=== PATIENT | male | born 1945 | race Two or more races ===

== ENCOUNTER → 2021-05-15 12:56 | Outpatient (REF) | payer MEDICARE, MEDICAID, SELFPAY ==
--- NOTE | ~2021-05-15 | XR_ITS ---
EXAMINATION: XR CHEST CLINICAL INFORMATION: Wheezing. COMPARISON: None. TECHNIQUE: 2 views of the chest were obtained. FINDINGS: Linear atelectasis within the right and left lung base. Eventration of the right hemidiaphragm. No pleural effusion or pneumothorax. Unremarkable cardiomediastinal silhouette. No acute osseous abnormality. XR/XR chest 2V IMPRESSION: Bibasilar linear atelectasis.
--- NOTE | 2021-05-15 13:11 | ECG_ITS ---
Hook-up date: 2021-05-15 13:56:00 Duration: 47:59:00 Test Indications: cardiac arrhythmia, unspecified Medications: [id number] QRS complexes 176 Ventricular ectopics which represent <1 % of total QRS comp. 4006 Supraventricular ectopics which represent 2 % of total QRS comp. * Paced QRS complexs which represent % of total QRS comp. VENTRICULAR ECTOPY 176 Isolated 0 Bigeminal Cycles 0 Couplets 0 Runs 0 Beats in Runs * Beats LONGEST at * BPM at :: -- * Beats FASTEST at * BPM at :: -- SUPRAVENTRICULAR ECTOPY 163 Isolated 6 Couplets 11 Runs 3831 Beats in Runs 1610 Beats LONGEST at 66 BPM at 04:28:29 2021-05-17 672 Beats FASTEST at 68 BPM at 06:21:32 2021-05-17 HEART RATES 47 MIN at 23:02:50 2021-05-15 69 AVG 111 MAX at 13:21:26 2021-05-16 LONGEST RR 1.6240 secs at 12:15:20 2021-05-17 S-T LEVELS Channel 1 - 128 mm at 13:56:00 2021-05-15 - 128 mm at 13:56:00 2021-05-15 Channel 2 - 128 mm at 13:56:00 2021-05-15 - 128 mm at 13:56:00 2021-05-15 Channel 3 - 128 mm at 03:31:51 -- - 128 mm at 03:31:51 Referred By: Tresa Tran Overread By:
== END ==
LOC: HO.CARD 12:56
PROVIDERS: Visit Provider Family Medicine
DX: R06.02 Shortness of breath (principal); I49.9 Cardiac arrhythmia, unspecified; F17.200 Nicotine dependence, unspecified, uncomplicated
CPT/HCPCS: 71046; 93225; 93226

== ENCOUNTER 2021-06-05 14:34 | Outpatient (REF) | payer MEDICARE, MEDICAID, SELFPAY ==
--- NOTE | ~2021-06-05 | CT_ITS ---
EXAMINATION: CT CHEST SCREENING CLINICAL INFORMATION: Current smoker. [id number] smoking history. COMPARISON: Previous chest x-ray 05/15/2021 TECHNIQUE: Multidetector volumetric CT imaging of the chest is performed without contrast using low-dose technique. Additional 2-D coronal and sagittal reformatted images and axial 3-D maximum intensity projection (MIP) images are generated on the CT workstation. This CT examination was performed using dose optimization techniques as appropriate, variously including the following: *Automated exposure control *Adjustment of mA and/or kV according to patient size (this includes techniques or standardized protocols for targeted exams where dose is matched to indication/reason for exam; i.e. extremities or head) *Use of iterative reconstruction technique DLP: 67 mGy-cm FINDINGS: LUNGS: There is evidence of mild paraseptal emphysema. There is a 1.3 cm nodular density in the medial segment of the right middle lobe. This has an adjacent thick linear component with air bronchograms. It is uncertain whether this represents a true pulmonary nodule versus area of nodular-appearing atelectasis. This abuts an area of prominent epicardial fat. There is subsegmental atelectasis seen in the left lung base in the inferior segment of the lingula and the left lower lobe. The lungs are otherwise clear. No endobronchial or endotracheal lesion is seen. MEDIASTINUM: The heart does not appear enlarged. There is mild coronary artery calcification. The thoracic aorta is normal in caliber. There is no pericardial effusion. There are no enlarged hilar or mediastinal lymph nodes. The visualized thyroid gland appears small. PLEURA: There is no pleural effusion. No pleural mass or thickening. AXILLA: No lymphadenopathy. UPPER ABDOMEN: Unremarkable. OSSEOUS STRUCTURES: There are degenerative changes of the spine. CT/CT lung screening IMPRESSION: Mild emphysema. 1.3 cm nodular density in the medial segment of the right middle lobe. It is uncertain whether this represents nodular-appearing atelectasis or true pulmonary nodule. Mild coronary artery calcification. ASSESSMENT: Lung-RADS category 4A: Suspicious. RECOMMENDATION: Low-dose chest CT followup in 3 months or PET/CT scan recommended. Comparison with old outside exams if available would be helpful as well.
== END 2021-06-05 14:35 | disposition home or self-care (01) ==
LOC: HO.CT 14:34
PROVIDERS: PCP Family Medicine; Visit Provider Physician Assistant Medical
DX: Z12.2 Encounter for screening for malignant neoplasm of respiratory organs (principal); F17.210 Nicotine dependence, cigarettes, uncomplicated
CPT/HCPCS: 71271; G0296

== ENCOUNTER 2021-06-23 13:09 | Outpatient (REF) | payer MEDICARE, MEDICAID, SELFPAY | END 2021-06-23 13:10 | disposition home or self-care (01) | LOC: HO.PET 13:09 | PROVIDERS: PCP Family Medicine; Visit Provider Surgery | DX: Z13.89 Encounter for screening for other disorder (principal) ==

== ENCOUNTER 2021-06-25 11:00 | Outpatient (REF) | payer MEDICARE, MEDICAID, SELFPAY ==
--- NOTE | 2021-06-25 17:34 | PFT_ITS ---
INDICATION: Preop. SPIROMETRY: The FEV1 to FVC 66% with an FEV1 of 2.26 L, which is 78% predicted and FVC 3.42 L, which is 90% predicted. There was a significant response to bronchodilators noted. Maximum voluntary ventilation 82% predicted. LUNG VOLUMES: Total lung capacity 98% predicted with residual volume 137% predicted. DIFFUSION CAPACITY: DLCO 60% predicted. COMPARISONS: None. INTERPRETATION: There is an obstructive ventilatory defect consistent moderate COPD. There was a significant response to bronchodilators noted. Normal maximum voluntary ventilation. Lung volumes are normal except for increase in the residual volume consistent with air trapping due to the COPD. There is also moderate diffusion impairment. Clinical correlation warranted. Pino Hammer MD MR/MODL / [id number]
== END 2021-06-25 11:01 | disposition home or self-care (01) ==
LOC: HO.RESP 11:00
PROVIDERS: PCP Family Medicine; Visit Provider Physician Assistant Medical
DX: Z01.818 Encounter for other preprocedural examination (principal); Z87.891 Personal history of nicotine dependence
CPT/HCPCS: 94060; 94727; 94729

== ENCOUNTER 2021-06-28 13:43 | Emergency (ER) | payer MEDICARE, MEDICAID, SELFPAY ==
--- NOTE | ~2021-06-28 | XR_ITS ---
EXAMINATION: XR CHEST CLINICAL INFORMATION: Shortness of breath COMPARISON: Previous chest x-ray and chest CT from May 2021 TECHNIQUE: Frontal view of the chest was obtained. FINDINGS: The cardiac and mediastinal contours are stable. There is slight tenting of the right hemidiaphragm. The lungs are otherwise clear. There is no pleural effusion or pneumothorax. There are degenerative changes of the spine and shoulder joints. XR/XR chest 1V IMPRESSION: No evidence for acute disease in the chest.
[2021-06-28 13:45] VITALS: BP 192/90; PULSE 100; RESP 24; TEMP 36.8; O2SAT 96; BMI 25.1
--- NOTE | 2021-06-28 13:50 | ECG_ITS ---
Test Reason : SHORTNESS OF BREATH Blood Pressure : / mmHG Vent. Rate : 093 BPM Atrial Rate : 093 BPM P-R Int : 134 ms QRS Dur : 076 ms QT Int : 348 ms P-R-T Axes : 064 036 063 degrees QTc Int : 432 ms Normal sinus rhythm Normal ECG When compared with ECG of 30-MAR-2014 10:03, Vent. rate has increased BY 33 BPM Nonspecific T wave abnormality is no longer Present Lateral leads Referred By: Generic ED Physician Electronically Signed By:SHANIA MITTAL MD
--- NOTE | 2021-06-28 14:15 | ED_ITS ---
HPI - SOB/Dyspnea General Chief Complaint: Dyspnea Stated Complaint: diff breathing Time Seen by Provider: 06/28/21 13:54 Source: patient Mode of arrival: ambulatory Limitations: no limitations History of Present Illness HPI Narrative: 76-year-old male with a history of emphysema, former smoker here with complaints of shortness of breath the last 3 days with dry cough. No chest pain, fever, chills. Related Data Previous Rx's Medication Instructions Recorded azithromycin 250 mg tablet See Rx Instructions .ROUTE 06/28/21 .COMPLEX #6 tab prednisone 20 mg tablet 40 mg PO DAILY #10 tab 06/28/21 Allergies Allergy/AdvReac Type Severity Reaction Status Date / Time No Known Allergies Allergy Unverified 05/01/20 15:10 Review of Systems Review of Systems: Yes all other systems are reviewed and are negative Constitutional: Constitutional: Reports no additional constitutional com plaints, Denies body ache(s), Denies chills, Denies fever(s), Denies headache(s) and Denies weakness Eyes: Eyes: Reports no additional eye complaints and Denies change in vision ENT: Reports system reviewed and no additional complaints, except as documented, Denies dizziness, Denies headache(s), Denies nasal congestion, Denies nasal discharge and Denies neck pain Cardiovascular: Cardiovascular: Reports no additional cardiovascular complaints, Denies chest pain, Denies leg edema and Reports dyspnea Respiratory: Respiratory: Reports no additional respiratory complaints, Reports cough and Reports dyspnea Gastrointestinal: Gastrointestinal: Reports no additional gastrointestinal complaints, Denies abdominal pain, Denies diarrhea, Denies nausea and Denies vomiting Genitourinary: Genitourinary: Denies urinary incontinence Musculoskeletal: Musculoskeletal: Reports no additional musculoskeletal complaints, Denies back pain, Denies arthralgias, Denies joint swelling, Denies neck pain, Denies numbness and Denies tingling Integumentary/Breasts: Skin/Breast: Reports system reviewed and no additional complaints, except as docu and Denies rash Neurologic: Reports system reviewed and no additional complaints, except as documented, Denies Abnormal speech present, Denies dizziness, Denies headache(s), Denies numbness, Denies tingling and Denies weakness PMFSH Past Medical History Attestation statement: The following information was validated with the patient. Source: old records reviewed and nursing notes reviewed Medical History Chronic hepatitis C virus genotype 1a infection (~1999) Hypertension Personal history of nicotine dependence Tubular adenoma of colon (~2012) Surgical History History of cataract surgery (~2006) History of colonoscopy History of hernia repair History of liver biopsy (~2000) History of lumbar surgery (~1994) History of transurethral resection of prostate (~2009) Social History Social History Patient Tobacco Use Status: Former Tobacco user Quit Date: 2014 Tobacco use type: Cigarette Years Smoked: 55 - onset 14, 1/2ppd x 56yrs, 25+PYH, quit 2014 Advance Directives: No Advance Directives Information Provided: No Physical Exam Vital Signs: Vital Signs: Last Vital Signs Temp 98.2 F 06/28/21 13:45 Pulse 83 06/28/21 15:52 Resp 24 H 06/28/21 13:45 BP 192/90 H 06/28/21 13:45 Pulse Ox 96 06/28/21 13:45 Body Mass Index 25.1 Const: General: cooperative, healthy appearing, comfortable and no acute distress Orientation/consciousness: patient oriented x3 Limitations: no limitations HENMT: Head: Yes normal to inspection Ears: hearing grossly normal bilaterally General nose exam: Normal external nose present Face and sinus: Yes normal facial exam Mouth: Normal oral and palatal mucosa present Throat: Yes posterior oropharynx normal Eyes: General: appearance normal, both eyes and all related structures Pupils: Equal, round and reactive pupils present Neck: Neck: Yes normal visual inspection Chest: Chest palpation & inspection: normal inspection of the chest Resp: Other: Inspiratory and expiratory wheezing throughout Mild tachypnea, sitting upright, speaking short phrases Cardio: Rate: regular rate Rhythm: regular rhythm Peripheral pulses: Peripheral pulses 2+ throughout GI: Inspection: Yes normal to inspection Palpation (GI): Soft to palpation and nontender Auscultation: normal bowel sounds Back/Spine/Pelvis: Thoracic/Lumbar Spine: thoracic and lumbar spine normal to inspection Skin: General skin exam: no rashes or lesions noted Neuro: General: patient oriented x3, no focal motor deficits and normal sensation to monofilament Cranial nerves: Yes Equal, round and reactive pupils present Cognition (Neuro): normal cognition Speech: No Abnormal speech present Gait exam (Neuro): Normal gait present Motor exam (neuro): 5/5 motor strength present throughout Extrem: General: Yes normal to inspection, Yes no pedal edema and Yes no calf tenderness Course Course Course Narrative: 76-year-old male here with history of emphysema with shortness of breath and cough for few days. On arrival the patient is tachypneic with wheezing. He has stable saturations. Likely COPD exacerbation will plan for IV with IV Solu-Medrol, magnesium, duoneb. Will check covid screen, CXR, EKG. 1530-labs, chest x-ray, EKG and COVID screen are all unremarkable. I re- examined the patient. He has continued expiratory wheezing throughout. Overall he is feeling improved but still complaining of some mild tachypnea. Will repeat albuterol. Will need ambulatory trial to determine need for admission. 1645-patient feeling improved. Ambulated with a pulse oximeter greater than 9 6%. Lungs are improved. Plan for discharge home. Reviewed worrisome signs and symptoms and when to return to the emergency department. Comfortable discharge home. MDM - SOB/Dyspnea Differential Diagnosis Differential diagnosis: Likely acute exacerbation of chronic obstructive airways disease Medical Records Attestation: I reviewed the patient's medical records. Lab Data Attestation: I reviewed the patient's lab results. Result diagrams: 06/28/21 14:27 06/28/21 14:27 Labs: Lab Results 06/28/21 06/28/21 06/28/21 Range/Units 14:27 14:27 14:27 WBC 7.6 (4.8-10.8) X10*3/uL RBC 4.96 (4.60-5.80) X10*6/uL Hgb 15.6 (14.0-18.0) g/dl Hct 45.7 (42.0-52.0) % MCV 92.1 (80.0-98.0) fL MCH 31.5 (27.0-33.0) pg MCHC 34.1 (31.0-36.0) g/dl RDW 13.0 (11.0-16.0) % Plt Count 186 (160-400) X10*3/uL MPV 10.0 (9.4-12.4) fL Immature Gran % (Auto) 0.3 (0.0-0.4) % Neut % (Auto) 79.6 H (45-73) % Lymph % (Auto) 9.9 L (20-40) % Whitfield % (Auto) 8.4 (2-11) % Eos % (Auto) 1.3 (0-4) % Baso % (Auto) 0.5 (0-2) % Lymph # (Auto) 0.8 L (1.2-4.9) X10*3/uL Whitfield # (Auto) 0.6 (0.1-1.2) X10*3/uL Eos # (Auto) 0.1 (0.0-0.4) X10*3/uL Baso # (Auto) 0.0 (0.0-0.2) X10*3/uL Abs Immat Gran (auto) 0.02 (0.00-0.03) X10*3/uL Absolute Neuts (auto) 6.1 (2.0-8.3) x10*3/uL Absolute Nucleated RBC 0.000 (0.0-0.012) X10*3/uL Nucleated RBC % (auto) 0.0 (0.0-0.2) /100WBC Sodium 142 (135-145) mmol/L Potassium 3.6 (3.3-5.1) mmol/L Chloride 106 (96-108) mmol/L Carbon Dioxide 23 (22-29) mmol/L Anion Gap 17 (12-20) BUN 11 (9-16) mg/dL Creatinine 0.83 (0.5-1.4) mg/dL Estim Creat Clear Calc 79.3 Estimated GFR > 60 Random Glucose 150 H (60-115) mg/dL Calcium 9.0 (8.4-10.2) mg/dL Total Bilirubin (0.0-1.0) mg/dL Direct Bilirubin (0.0-0.5) mg/dL AST (5-37) U/L ALT (0-40) U/L Alkaline Phosphatase (39-117) U/L Troponin I High Sens 7.2 (<3.5-35.0) ng/L Total Protein (6.5-8.0) g/dL Albumin (3.5-5.0) g/dL COVID-19 ([facility]) (Negative) COVID-19 Clin Com 06/28/21 06/28/21 Range/Units 14:27 14:27 WBC (4.8-10.8) X10*3/uL RBC (4.60-5.80) X10*6/uL Hgb (14.0-18.0) g/dl Hct (42.0-52.0) % MCV (80.0-98.0) fL MCH (27.0-33.0) pg MCHC (31.0-36.0) g/dl RDW (11.0-16.0) % Plt Count (160-400) X10*3/uL MPV (9.4-12.4) fL Immature Gran % (Auto) (0.0-0.4) % Neut % (Auto) (45-73) % Lymph % (Auto) (20-40) % Whitfield % (Auto) (2-11) % Eos % (Auto) (0-4) % Baso % (Auto) (0-2) % Lymph # (Auto) (1.2-4.9) X10*3/uL Whitfield # (Auto) (0.1-1.2) X10*3/uL Eos # (Auto) (0.0-0.4) X10*3/uL Baso # (Auto) (0.0-0.2) X10*3/uL Abs Immat Gran (auto) (0.00-0.03) X10*3/uL Absolute Neuts (auto) (2.0-8.3) x10*3/uL Absolute Nucleated RBC (0.0-0.012) X10*3/uL Nucleated RBC % (auto) (0.0-0.2) /100WBC Sodium (135-145) mmol/L Potassium (3.3-5.1) mmol/L Chloride (96-108) mmol/L Carbon Dioxide (22-29) mmol/L Anion Gap (12-20) BUN (9-16) mg/dL Creatinine (0.5-1.4) mg/dL Estim Creat Clear Calc Estimated GFR Random Glucose (60-115) mg/dL Calcium (8.4-10.2) mg/dL Total Bilirubin 0.5 (0.0-1.0) mg/dL Direct Bilirubin 0.2 (0.0-0.5) mg/dL AST 17 (5-37) U/L ALT 18 (0-40) U/L Alkaline Phosphatase 122 H (39-117) U/L Troponin I High Sens (<3.5-35.0) ng/L Total Protein 7.8 (6.5-8.0) g/dL Albumin 4.5 (3.5-5.0) g/dL COVID-19 ([facility]) Negative (Negative) COVID-19 Clin Com See Note Imaging Data Chest x-ray: Attestation: I personally reviewed and interpreted this imaging study as follows: Radiologist's impression: [place] [id number] XRay Report Signed Patient: Rd Mead MR#: [id number] : 1945 Acct:[id number] Age/Sex: 76 / M ADM Date: 06/28/21 Loc: .ED Attending Dr: Ordering Physician: Klaus Westfall MD Date of Service: 06/28/21 Procedure(s): XR chest 1V Accession Number(s): [id number] cc: Klaus Westfall MD~ EXAMINATION: XR CHEST CLINICAL INFORMATION: Shortness of breath COMPARISON: Previous chest x-ray and chest CT from May 2021 TECHNIQUE: Frontal view of the chest was obtained. FINDINGS: The cardiac and mediastinal contours are stable. There is slight tenting of the right hemidiaphragm. The lungs are otherwise clear. There is no pleural effusion or pneumothorax. There are degenerative changes of the spine and shoulder joints. XR/XR chest 1V IMPRESSION: No evidence for acute disease in the chest. ? ECG Data Attestation: I personally reviewed and interpreted this ECG as follows: ECG interpretation date: 06/28/21 ECG interpretation time: 14:19 Interpretation: Normal sinus rhythm with a rate of 93, normal IL, normal QRS, normal QT Discharge Plan Discharge Clinical Impression: Acute exacerbation of chronic obstructive airways disease Patient Disposition: Home, Self-Care Instructions: COPD (Chronic Obstructive Pulmonary Disease) (ED) Additional Instructions: Start your prednisone tomorrow Continue your albuterol Return for worsening shortness of breath Prescriptions: New prednisone 20 mg tablet 40 mg PO DAILY Qty: 10 RF: 0 azithromycin 250 mg tablet See Rx Instructions .ROUTE .COMPLEX Qty: 6 RF: 0 Referrals: Tresa Tran MD [Primary Care Provider] - 2 days Interventions: ED Discharge Assessment Last Done: 06/28/21 16:38 Discharge Date/Time: 06/28/21 16:38
[2021-06-28 14:27] VITALS: PULSE 88; O2SAT 96
[2021-06-28] MEDS: Albuterol/Iprat 2.5/0.5MG 3 ML AMPUL.NEB INHALE (14:27)
[2021-06-28] MEDS: methylPREDNISolone Sod Succ 125 MG/2 ML VIAL IVPUSH (14:31)
[2021-06-28 14:35] LABS: MANUAL DIFF FLAG NO
[2021-06-28 14:36] LABS: Basophils Percent Auto 0.5 % (0-2); Eosinophils Absolute Auto 0.1 X10*3/uL (0.0-0.4); Eosinophils Percent Auto 1.3 % (0-4); Hematocrit 45.7 % (42.0-52.0); Hemoglobin 15.6 g/dl (14.0-18.0); Imm Gran Abs Auto 0.02 X10*3/uL (0.00-0.03); Imm Gran Pct Auto 0.3 % (0.0-0.4); Lymphocytes Absolute Auto 0.8 X10*3/uL (1.2-4.9); Lymphocytes Percent Auto 9.9 % (20-40); Mean Corpuscular HGB Conc 34.1 g/dl (31.0-36.0); Mean Corpuscular Hemoglobin 31.5 pg (27.0-33.0); Mean Corpuscular Volume 92.1 fL (80.0-98.0); Monocytes Absolute Auto 0.6 X10*3/uL (0.1-1.2); Monocytes Percent Auto 8.4 % (2-11); Neutrophils Absolute Auto 6.1 x10*3/uL (2.0-8.3); Neutrophils Percent Auto 79.6 % (45-73); Platelet Count 186 X10*3/uL (160-400); Red Blood Count 4.96 X10*6/uL (4.60-5.80); White Blood Count 7.6 X10*3/uL (4.8-10.8)
[2021-06-28] MEDS: Magnesium Sulfate/H2O 2 GM/50 ML PIGGYBACK IV (14:42)
[2021-06-28 14:49] LABS: COVID-19 Test Negative (Negative)
[2021-06-28 14:50] LABS: Anion Gap 17 (12-20); Blood Urea Nitrogen 11 mg/dL (9-16); Carbon Dioxide 23 mmol/L (22-29); Chloride 106 mmol/L (96-108); Creatinine Clr Calc Pharmacy 79.3; Estimated Glomerular Filt Rate > 60; Glucose Random 150 mg/dL (60-115); Potassium 3.6 mmol/L (3.3-5.1); Sodium 142 mmol/L (135-145)
[2021-06-28 14:51] LABS: Alanine Aminotransferase 18 U/L (0-40); Albumin Level 4.5 g/dL (3.5-5.0); Alkaline Phosphatase 122 U/L (39-117); Aspartate Amino Transferase 17 U/L (5-37); Bilirubin Direct 0.2 mg/dL (0.0-0.5); Bilirubin Total 0.5 mg/dL (0.0-1.0); Total Protein 7.8 g/dL (6.5-8.0)
[2021-06-28 14:56] LABS: Troponin-I High Sensitivity 7.2 ng/L (<3.5-35.0)
[2021-06-28] MEDS: Albuterol Sulfate (0.083%) 2.5 MG/3 ML VIAL.NEB 5 MG INHALE (15:51)
[2021-06-28 15:52] VITALS: PULSE 83; O2SAT 97
== END 2021-06-28 16:38 | disposition home or self-care (01) ==
PROVIDERS: Nurse Practitioner Family; Emergency Provider Emergency Medicine; PCP Family Medicine
DX: J44.1 Chronic obstructive pulmonary disease with (acute) exacerbation (principal); I10 Essential (primary) hypertension; Z87.891 Personal history of nicotine dependence; Z20.822 Contact with and (suspected) exposure to COVID-19
CPT/HCPCS: 36415; 71045; 80048; 80076; 84484; 85025; 87635; 93005; 94640; 96365; 96366; 96375; 99283; 99284; J2930; J3475

== ENCOUNTER → 2021-07-03 09:02 | Outpatient (BNVA) | payer MEDICARE, MEDICAID, SELFPAY | PROVIDERS: PCP Family Medicine; Visit Provider Surgery | DX: R91.1 Solitary pulmonary nodule (principal); Z79.899 Other long term (current) drug therapy; Z87.891 Personal history of nicotine dependence | CPT/HCPCS: 99212 ==

== ENCOUNTER → 2021-07-28 10:06 | Outpatient (BNVA) | payer MEDICARE, MEDICAID, SELFPAY | PROVIDERS: PCP Family Medicine; Visit Provider Hospitalist | DX: R91.1 Solitary pulmonary nodule (principal); J41.1 Mucopurulent chronic bronchitis; F17.200 Nicotine dependence, unspecified, uncomplicated | CPT/HCPCS: 99202 ==

== ENCOUNTER 2021-09-24 14:19 | Outpatient (REF) | payer MEDICARE, MEDICAID, SELFPAY ==
--- NOTE | ~2021-09-24 | CT_ITS ---
EXAMINATION: CT CHEST SCREENING CLINICAL INFORMATION: Former smoker. Quit 7 years ago. 56 pack year history. COMPARISON: Previous chest CT May 2021 TECHNIQUE: Multidetector volumetric CT imaging of the chest is performed without contrast using low dose technique. Additional 2D coronal and sagittal reformatted images and axial 3D maximum intensity projection (MIP) images are generated on the CT workstation. This CT examination was performed using dose optimization techniques as appropriate, variously including the following: *Automated exposure control *Adjustment of mA and/or kV according to patient size (this includes techniques or standardized protocols for targeted exams where dose is matched to indication/reason for exam; i.e. extremities or head) *Use of iterative reconstruction technique DLP: 52 mGy-cm FINDINGS: LUNGS: There is evidence of mild emphysema. There is a stable 3 mm left upper lobe nodule axial image 269 series 6. No new pulmonary nodule is seen. There is chronic scarring or subsegmental atelectasis in the right middle lobe that is stable. There is minimal linear scarring or subsegmental atelectasis at the left lung base. MEDIASTINUM: There is mild coronary artery calcification. The mediastinum is otherwise normal. PLEURA: There is no pleural effusion. No pleural mass or thickening. AXILLA: No lymphadenopathy. UPPER ABDOMEN: Unremarkable OSSEOUS STRUCTURES:Degenerative changes of the spine and left shoulder. CT/CT lung screen follow up IMPRESSION: Mild emphysema. Stable small left upper lobe nodule. Stable atelectasis at the right middle lobe. Mild coronary artery calcification. ASSESSMENT: Lung-RADS category 2: Benign RECOMMENDATION: Annual low-dose chest CT follow-up recommended.
== END 2021-09-24 14:20 | disposition home or self-care (01) ==
LOC: HO.CT 14:19
PROVIDERS: Visit Provider Physician Assistant Medical
DX: Z12.2 Encounter for screening for malignant neoplasm of respiratory organs (principal); Z87.891 Personal history of nicotine dependence
CPT/HCPCS: 71250

== ENCOUNTER → 2021-10-02 10:48 | Outpatient (BNVA) | payer MEDICARE, MEDICAID, SELFPAY | PROVIDERS: PCP Family Medicine; Visit Provider Surgery | DX: R91.1 Solitary pulmonary nodule (principal); Z79.899 Other long term (current) drug therapy; Z87.891 Personal history of nicotine dependence | CPT/HCPCS: 99212 ==

== ENCOUNTER → 2021-10-08 13:15 | Outpatient (BNVA) | payer MEDICARE, MEDICAID, SELFPAY | PROVIDERS: PCP Family Medicine; Visit Provider Hospitalist | DX: J41.1 Mucopurulent chronic bronchitis (principal); R91.1 Solitary pulmonary nodule; Z79.899 Other long term (current) drug therapy | CPT/HCPCS: 99212 ==

== ENCOUNTER 2022-02-24 16:07 | Outpatient (REF) | payer MEDICARE, MEDICAID, SELFPAY ==
--- NOTE | ~2022-02-24 | XR_ITS ---
EXAMINATION: XR CHEST CLINICAL INFORMATION: Dorsalgia. COMPARISON: Prior chest radiographs, most recently 06/28/2021; CT chest dated 09/24/2021. TECHNIQUE: Frontal and lateral views of the chest were obtained. FINDINGS: The heart, great vessels, pulmonary vasculature and mediastinum are stable. There is atherosclerotic calcifications of the aortic knob. There is a persistent undulating appearance of the right hemidiaphragm. There is mild chronic linear scar/subsegmental atelectasis at the lateral left base. No new superimposed infiltrate, effusion or pneumothorax is seen. There is no acute osseous abnormality. XR/XR chest 2V IMPRESSION: There is stable mild left base linear scar/subsegmental atelectasis. No new infiltrate or congestive heart failure is seen.
--- NOTE | ~2022-02-24 | XR_ITS ---
EXAMINATION: XR THORACIC SPINE CLINICAL INFORMATION: Dorsalgia. COMPARISON: Radiographs dated 01/07/2010. TECHNIQUE: Frontal and lateral views of the thoracic spine were obtained, together with a swimmer's view. FINDINGS: There is bony demineralization. Vertebral body heights and alignment are normal. The thoracic disc spaces are well-maintained. No acute fracture or spondylolisthesis is seen. There is multi-level mild thoracic spondylosis. The posterior elements are intact. The paravertebral soft tissues are unremarkable. XR/XR thoracic spine 3V IMPRESSION: 1. No acute fracture or spondylolisthesis is seen. 2. The thoracic disc spaces are well-maintained. 3. There is multi-level mild thoracic spondylosis.
== END 2022-02-24 16:08 | disposition home or self-care (01) ==
LOC: HO.XRAY 16:07
PROVIDERS: PCP Family Medicine; Visit Provider Family Medicine
DX: M54.9 Dorsalgia, unspecified (principal)
CPT/HCPCS: 71046; 72072

== ENCOUNTER 2022-09-15 12:57 | Outpatient (REF) | payer MEDICARE, SELFPAY ==
--- NOTE | ~2022-09-15 | CT_ITS ---
EXAMINATION: CT CHEST SCREENING CLINICAL INFORMATION: Personal history of nicotine dependence. COMPARISON: 09/24/2021 TECHNIQUE: Multidetector volumetric CT imaging of the chest is performed without contrast using low dose technique. Additional 2D coronal and sagittal reformatted images and axial 3D maximum intensity projection (MIP) images are generated on the CT workstation. This CT examination was performed using dose optimization techniques as appropriate, variously including the following: *Automated exposure control *Adjustment of mA and/or kV according to patient size (this includes techniques or standardized protocols for targeted exams where dose is matched to indication/reason for exam; i.e. extremities or head) *Use of iterative reconstruction technique DLP: 48 mGy-cm FINDINGS: LUNGS: The central airways are patent. Mild centrilobular emphysema. No dense consolidation. No pneumothorax. Unchanged 0.3 cm left upper lobe pulmonary nodule on series 5 image 256. No new pulmonary nodules. MEDIASTINUM: Normal heart size. Mild coronary artery calcifications are present. No pericardial effusion. No mediastinal lymphadenopathy. CORONARY ARTERY CALCIFICATION: Present. PLEURA: There is no pleural effusion. No pleural mass or thickening. AXILLA: No lymphadenopathy. UPPER ABDOMEN: Unremarkable OSSEOUS STRUCTURES: No acute or suspicious osseous abnormality. Mild degenerative changes throughout the spine. CT/CT lung screening IMPRESSION: Mild emphysema. Unchanged 0.3 cm left upper lobe pulmonary nodule. ASSESSMENT: Lung-RADS category 2: Benign RECOMMENDATION: Routine annual low-dose CT screening in 12 months.
== END 2022-09-15 12:58 | disposition home or self-care (01) ==
LOC: HO.CT 12:57
PROVIDERS: PCP Family Medicine; Visit Provider Surgery
DX: Z12.2 Encounter for screening for malignant neoplasm of respiratory organs (principal); Z87.891 Personal history of nicotine dependence
CPT/HCPCS: 71271

== ENCOUNTER 2023-04-12 07:57 | Outpatient (REF) | payer MEDICARE, MEDICAID, SELFPAY ==
--- NOTE | ~2023-04-12 | US_ITS ---
EXAMINATION: Doppler abdominal ultrasound CLINICAL INFORMATION: Abdominal pain. Peripheral arterial occlusive disease. COMPARISON: CTA abdomen 09/18/2018. TECHNIQUE: Mesenteric arterial Doppler was performed. FINDINGS: Aorta: Proximal to SMA: 59 cm/s. Distal to SMA: 61 cm/s. Celiac artery: Supine inspiration: 310 cm/s. Normal waveform. Supine expiration: 346 cm/s. Normal waveform. Erect inspiration: 306 cm/s. Normal waveform. Erect expiration: 296 cm/s. Normal waveform. SMA: Proximal: 318 cm/s. Normal fasting waveform. Mid: 139 cm/s. Normal fasting waveform. Distal: 122 cm/s. Normal fasting waveform. KATIE: Occluded. Splenic artery: 213 cm/s. Normal waveform. Hepatic artery: 199 cm/s. Normal waveform. US/US SMA IMPRESSION: Elevated velocities in the celiac artery and in the proximal SMA with normal distal waveforms likely reflective of mild to moderate visceral arterial disease without high-grade stenosis. 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
== END 2023-04-12 07:58 | disposition home or self-care (01) ==
LOC: HO.US 07:57
PROVIDERS: PCP Family Medicine; Visit Provider Family Medicine
DX: R10.84 Generalized abdominal pain (principal); I77.9 Disorder of arteries and arterioles, unspecified
CPT/HCPCS: 93976

== ENCOUNTER 2023-05-17 15:11 | Emergency (ER) | payer MEDICARE, MEDICAID, SELFPAY ==
--- NOTE | ~2023-05-17 | XR_ITS ---
EXAMINATION: XR CHEST CLINICAL INFORMATION: Chest pain COMPARISON: Chest 02/24/2022 TECHNIQUE: Frontal view of the chest was obtained. FINDINGS: The lungs are well expanded. Mild elevation the right hemidiaphragm is again noted. Mild linear density at the lung bases is consistent with atelectasis. No convincing evidence of focal consolidation. No pleural effusion or pneumothorax. No evidence of interstitial pulmonary edema. The cardiomediastinal silhouette is within normal limits. Heart size is normal. Calcification of the thoracic arch indicative of atherosclerotic disease. There are degenerative changes of the spine and shoulder joints. XR/XR chest 1V IMPRESSION: No acute cardiopulmonary disease.
--- NOTE | 2023-05-17 15:12 | ECG_ITS ---
Test Reason : CP Blood Pressure : / mmHG Vent. Rate : 061 BPM Atrial Rate : 061 BPM P-R Int : 156 ms QRS Dur : 074 ms QT Int : 396 ms P-R-T Axes : 050 -04 062 degrees QTc Int : 398 ms Normal sinus rhythm Minimal voltage criteria for LVH, may be normal variant ( R in aVL ) Borderline ECG When compared with ECG of 28-JUN-2021 14:19, Vent. rate has decreased BY 32 BPM Referred By: Pia Chopra Electronically Signed By:SHAUN HAMEED
--- NOTE | 2023-05-17 15:49 | ED_ITS ---
HPI - General Adult General Chief complaint: Chest Pain Stated complaint: L Side CP Headache Related Data Home Medications ?Medication ?Instructions ?Recorded ?Confirmed albuterol sulfate 90 mcg/actuation 0 mcg inhalation 07/03/21 10/02/21 aerosol inhaler aspirin 81 mg tablet,delayed 81 mg PO DAILY 07/03/21 10/02/21 release atorvastatin 80 mg tablet 80 mg PO DAILY 07/03/21 10/02/21 bupropion HCl 100 mg tablet,12 hr 100 mg PO BID 07/03/21 10/02/21 sustained-release cilostazol 100 mg tablet 100 mg PO BID 07/03/21 10/02/21 clonidine HCl 0.3 mg tablet 0.3 mg PO BID 07/03/21 10/02/21 doxazosin 8 mg tablet 8 mg PO DAILY 07/03/21 10/02/21 lisinopril 40 mg tablet 40 mg PO DAILY 07/03/21 10/02/21 metoprolol succinate 100 mg mg PO 07/03/21 10/02/21 tablet,extended release 24 hr nifedipine 30 mg tablet,extended 30 mg PO DAILY 07/03/21 10/02/21 release Previous Rx's ?Medication ?Instructions ?Recorded albuterol sulfate 2.5 mg/3 mL 2.5 mg (3 mL) inhalation Q6H PRN 07/28/21 (0.083 %) solution for nebulization shortness of breath or wheezing 30 days #180 mL fluticasone fur. 100 mcg-umeclid 1 ea PO DAILY #60 ea 07/28/22 62.5 mcg-vilant 25 mcg inhalat.powder (Trelegy Ellipta) meclizine 12.5 mg tablet 12.5 mg PO TID PRN dizziness #10 08/29/23 tabs Allergies Allergy/AdvReac Type Severity Reaction Status Date / Time No Known Allergies Allergy Verified 08/29/23 11:54 [facility] Past Medical History Medical History COPD (chronic obstructive pulmonary disease) Asthma-COPD overlap syndrome Hypertension Chronic hepatitis C virus genotype 1a infection (~1999) Personal history of nicotine dependence Tubular adenoma of colon (~2012) Surgical History History of hernia repair History of lumbar surgery (~1994) History of liver biopsy (~2000) History of colonoscopy History of cataract surgery (~2006) History of transurethral resection of prostate (~2009) Social History Social History Patient Tobacco Use Status: Former Tobacco user Quit Date: 2014 Tobacco use type: Cigarette Years Smoked: 55 - onset 14, 1/2ppd x 56yrs, 25+PYH, quit 2014 Advance Directives: No Advance Directives Information Provided: No Physical Exam ED Vital Signs: BMI result Body Mass Index 22.8 Course Course Course Narrative: This is an RME: Additional HPI, ROS, PE not included below will be deferred to primary provider. 78 y o male c/o L sided chest pain x2 hours. Also feels like he is having intermittent palpitations. Denies current H/A to me but reported it to registration. Plan -- labs, EKG Medical Decision Making Lab Data 05/17/23 15:48 05/17/23 15:48 Labs: Lab Results 05/17/23 05/17/23 Range/Units 15:48 21:01 WBC 6.1 (4.8-10.8) X10*3/uL RBC 4.25 L (4.60-5.80) X10*6/uL Hgb 13.5 L (14.0-18.0) g/dl Hct 38.6 L (42.0-52.0) % MCV 90.8 (80.0-98.0) fL MCH 31.8 (27.0-33.0) pg MCHC 35.0 (31.0-36.0) g/dl RDW 13.6 (11.0-16.0) % Plt Count 187 (160-400) X10*3/uL MPV 10.4 (9.4-12.4) fL Immature Gran % (Auto) 0.3 (0.0-0.4) % Neut % (Auto) 54.0 (45-73) % Lymph % (Auto) 34.5 (20-40) % [place] % (Auto) 10.2 (2-11) % Eos % (Auto) 0.7 (0-4) % Baso % (Auto) 0.3 (0-2) % Lymph # (Auto) 2.1 (1.2-4.9) X10*3/uL [place] # (Auto) 0.6 (0.1-1.2) X10*3/uL Eos # (Auto) 0.0 (0.0-0.4) X10*3/uL Baso # (Auto) 0.0 (0.0-0.2) X10*3/uL Abs Immat Gran (auto) 0.02 (0.00-0.03) X10*3/uL Absolute Neuts (auto) 3.3 (2.0-8.3) x10*3/uL Absolute Nucleated RBC 0.000 (0.0-0.012) X10*3/uL Nucleated RBC % (auto) 0.0 (0.0-0.2) /100WBC Sodium 139 (135-145) mmol/L Potassium 4.5 D (3.3-5.1) mmol/L Chloride 103 (96-108) mmol/L Carbon Dioxide 30 H (22-29) mmol/L Anion Gap 11 L (12-20) BUN 12 (9-16) mg/dL Creatinine 0.84 (0.5-1.4) mg/dL Estim Creat Clear Calc 68.5 Estimated GFR > 60 Random Glucose 77 (60-115) mg/dL Calcium 9.6 D (8.4-10.2) mg/dL Magnesium 2.3 (1.6-2.6) mg/dL Total Bilirubin 0.7 (0.0-1.0) mg/dL AST 19 (5-37) U/L ALT 21 (0-40) U/L Alkaline Phosphatase 114 (39-117) U/L Troponin I High Sens 4.6 < 2.7 (<3.5-35.0) ng/L Total Protein 7.1 (6.5-8.0) g/dL Albumin 4.2 (3.5-5.0) g/dL COVID-19 (CRISSY) Negative (Negative) COVID-19 Clin Com See Note Discharge Plan Discharge Clinical Impression: Eloped from emergency department Patient Disposition: Left Without Being Seen Interventions: LWBS Worksheet Last Done: 05/17/23 23:40 Discharge Date/Time: 05/17/23 23:41
[2023-05-17 16:00] LABS: MANUAL DIFF FLAG NO
[2023-05-17 16:08] VITALS: BP 127/72; PULSE 64; RESP 16; TEMP 36.7; O2SAT 98; BMI 22.8
[2023-05-17 16:09] LABS: Basophils Percent Auto 0.3 % (0-2); Eosinophils Percent Auto 0.7 % (0-4); Hematocrit 38.6 % (42.0-52.0); Hemoglobin 13.5 g/dl (14.0-18.0); Imm Gran Abs Auto 0.02 X10*3/uL (0.00-0.03); Imm Gran Pct Auto 0.3 % (0.0-0.4); Lymphocytes Absolute Auto 2.1 X10*3/uL (1.2-4.9); Lymphocytes Percent Auto 34.5 % (20-40); Mean Corpuscular Hemoglobin 31.8 pg (27.0-33.0); Mean Corpuscular Volume 90.8 fL (80.0-98.0); Mean Platelet Volume 10.4 fL (9.4-12.4); Monocytes Absolute Auto 0.6 X10*3/uL (0.1-1.2); Monocytes Percent Auto 10.2 % (2-11); Neutrophils Absolute Auto 3.3 x10*3/uL (2.0-8.3); Platelet Count 187 X10*3/uL (160-400); Red Blood Count 4.25 X10*6/uL (4.60-5.80); Red Cell Distribution Width 13.6 % (11.0-16.0); White Blood Count 6.1 X10*3/uL (4.8-10.8)
[2023-05-17 16:16] LABS: COVID-19 Test Negative (Negative); IDNOW Serial# 08D9AD1C
[2023-05-17 16:20] LABS: Alanine Aminotransferase 21 U/L (0-40); Albumin Level 4.2 g/dL (3.5-5.0); Alkaline Phosphatase 114 U/L (39-117); Anion Gap 11 (12-20); Aspartate Amino Transferase 19 U/L (5-37); Bilirubin Total 0.7 mg/dL (0.0-1.0); Blood Urea Nitrogen 12 mg/dL (9-16); Calcium 9.6 mg/dL (8.4-10.2); Carbon Dioxide 30 mmol/L (22-29); Chloride 103 mmol/L (96-108); Creatinine Clr Calc Pharmacy 68.5; Estimated Glomerular Filt Rate > 60; Glucose Random 77 mg/dL (60-115); Magnesium 2.3 mg/dL (1.6-2.6); Potassium 4.5 mmol/L (3.3-5.1); Sodium 139 mmol/L (135-145); Total Protein 7.1 g/dL (6.5-8.0)
[2023-05-17 16:25] LABS: Troponin-I High Sensitivity 4.6 ng/L (<3.5-35.0)
[2023-05-17 20:41] VITALS: BP 147/91; PULSE 66; RESP 18; TEMP 36.3; O2SAT 97
[2023-05-17 21:33] LABS: Troponin-I High Sensitivity < 2.7 ng/L (<3.5-35.0)
--- OUTSIDE RECORDS SUMMARY | 2023-05-17 23:20 | XMS_ITS | Continuity of Care Document ---
Author Name Unknown Organization [facility] Address [address] [place] [address]- Care Team Providers Care Vice President Regulatory Name Role Phone Chelsea LUZ, Tresa Primary Care Physician [place] [facility] [place] [id number] Date(s): 01/08/21 - 05/01/21 [facility] [address] [place] [address]- Attending Physician: Colleen POWELL, Nicole James Admitting Physician: Collene POWELL, Nicole James Referring Physician: Tresa Tran MD Allergies, Adverse Reactions, Alerts Substance Reaction Severity Status NKA Active Medications acetaminophen 325 mg oral tablet = 650 mg, By Mouth, Every 4 hours, PRN Pain , Mild Temperature, 0 Refills, Maintenance, 05/22/14 13:30:58, Tablet Start Date: 05/22/14 Status: Ordered aspirin 81 mg oral enteric coated capsule 81, mg, 1, capsule, By Mouth, Daily, 0, 0, 08/27/08 13:00:50, Print JESUS MANUEL Number, [id number], Constant Indicator Start Date: 08/27/08 Status: Ordered atorvastatin 80 mg oral tablet 1 tablet = 80 mg, By Mouth, Daily at bedtime, 0 Refills, Maintenance, 04/01/14 9:06:06 Start Date: 04/01/14 Status: Ordered buPROPion 100 mg oral tablet 1 tablet = 100 mg, By Mouth, 2 times a day, # 60 tablet, 0 Refills, Maintenance, 06/05/19 14:41:40 EDT, Tablet Start Date: 06/05/19 Status: Ordered cilostazol 100 mg oral tablet 1 tablet = 100 mg, By Mouth, Daily, 0 Refills, Maintenance, 06/05/19 14:40:23 EDT Start Date: 06/05/19 Status: Ordered clonidine 0.3 mg oral tablet 1 tablet = 0.3 mg, By Mouth, 2 times a day, 0 Refills, Maintenance, 04/01/14 9:08:04 Start Date: 04/01/14 Status: Ordered doxazosin 8 mg oral tablet 1 tablet = 8 mg, By Mouth, Daily at bedtime, 0 Refills, Maintenance, 04/01/14 9:07:17 EDT Start Date: 04/01/14 Status: Ordered lisinopril 40 mg oral tablet 40, mg, 1, tablet, By Mouth, Daily, 0, 0, 08/27/08 13:01:12, Print JESUS MANUEL Number, [id number], Constant Indicator Start Date: 08/27/08 Status: Ordered metoprolol 100 mg oral tablet 150 mg, 1.5, tablet, By Mouth, Daily, # 60 tablet, Refills 0, Maintenance, 06/05/19 14:38:17 EDT Start Date: 06/05/19 Status: Ordered Nifedical XL 30 mg oral tablet, extended release 1 tablet = 30 mg, By Mouth, Daily, 0 Refills, Maintenance, 04/01/14 9:08:53 Start Date: 04/01/14 Status: Ordered Vitamin D3 1 tablet, By Mouth, Daily, 0 Refills, Maintenance, 06/05/19 14:42:39 EDT Start Date: 06/05/19 Status: Ordered Problem List Condition Effective Dates Status Health Status Inform ant Atherosclerosis of aorta(Confirmed) Active Atherosclerosis of [place] ar teries with claudication(Confirmed) Active Bradycardia(Confirmed) Active Marijuana use(Confirmed) Active Depression(Confirmed) Active Ex-cigarette smoker(Confirmed) Active Claudication(Confirmed) Active Atheroscler [place] arteries the extremities w/intermit claudication(Confirmed) Active PAD (peripheral artery disease)(Confirmed) Active Neuropathy, peripheral(Confirmed) Active Unsteady gait(Confirmed) Active Social History Social History Type Response Tobacco Other: smokes mariju donna. Sex
--- OUTSIDE RECORDS SUMMARY | 2023-05-17 23:20 | XMS_ITS | Continuity of Care Document ---
Author Name Unknown Organization [facility] Address [address] [place] [address]- Care Team Providers Care Chenille Machine Operator Name Role Phone Chelsea LUZ, Tresa Primary Care Physician Encounter [facility] [place] Date(s): 08/12/22 - 09/11/22 [facility] [address] [place], [place] [address] Attending Physician: Karla Mathew Admitting Physician: AdmKarla hayes Referring Physician: Admtr, ArKaterina Allergies, Adverse Reactions, Alerts No Known Allergies Medications acetaminophen 325 mg oral tablet = 650 mg, By Mouth, Every 4 hours, PRN Pain , Mild Temperature, 0 Refills, Maintenance, 05/22/14 13:30:58, Tablet Start Date: 05/22/14 Status: Ordered Advair Diskus 100 mcg-50 mcg inhalation powder Inhalation, 2 times a day, Refills 0, Maintenance, 09/01/22 14:50:00 EST Start Date: 09/01/22 Status: Ordered aspirin 81 mg oral enteric coated capsule 81, mg, 1, capsule, By Mouth, Daily, 0, 0, 08/27/08 13:00:50, Print JESUS MANUEL Number, [id number], Constant Indicator Start Date: 08/27/08 Status: Ordered [...] 0, 08/27/08 13:01:12, Print JESUS MANUEL Number, [id number], Constant Indicator Start Date: 08/27/08 Status: Ordered [...] Date: 06/05/19 Status: Ordered Problem List Condition Confirmation Course Effective Dates Status H ealth Status Informant Atherosclerosis of aorta Confirmed Active Atherosclerosis of [place] arteries with claudication Confirmed Active Bradycardia Confirmed Active Marijuana use Confirmed Active Depression Confirmed Active Ex-cigarette smoker Confirmed Active Claudication Confirmed Active Atheroscler [place] arteries the extremities w/intermit claudication Confirmed Active PAD (peripheral artery disease) Confirmed Active Neuropathy, peripheral Confirmed Active Unsteady gait Confirmed Active Social History Social History Type Response Tobacco Other: smokes mariju donna. Sex Patient Care team information Care Team Personnel Name: Andreea Bullard RN Position: S RN Member Role: Primary Care Nurse Name: Nighat Chun RN Position: S RN Member Role: Primary Care Nurse Name: Tresa Tran MD Position: [facility] Outreach Member Role: PCP Address: Address: [address] [place] [address]- Name: Albina Landrum RN Position: [facility] RN Member Role: Primary Care Nurse Care Team Related Persons Name: SHAHRAM MYERS Address: home [address] [place] [address] Name: SHARRON MYERS Address: home [address] [place] [address]
--- OUTSIDE RECORDS SUMMARY | 2023-05-17 23:20 | XMS_ITS | Continuity of Care Document ---
Author Name Unknown Organization [facility] Address [address] [place] [address]- Care Team Providers Care Director Auto Name Role Phone Chelsea LUZ, Tresa Primary Care Physician [place] [facility] [id number] Date(s): 04/01/21 - 05/01/21 [facility] [address] [place], [place] [address] Attending Physician: Admtr, Barron8 Admitting Physician: Admtr, ArKaterina Referring Physician: Admtr, Ar8 Allergies, Adverse Reactions, Alerts Substance Reaction Severity Status NKA Active Medications acetaminophen 325 mg oral tablet = 650 mg, By Mouth, Every 4 hours, PRN Pain , Mild Temperature, 0 Refills, Maintenance, 05/22/14 13:30:58, Tablet Start Date: 05/22/14 Status: Ordered aspirin 81 mg oral enteric coated capsule 81, mg, 1, capsule, By Mouth, Daily, 0, 0, 08/27/08 13:00:50, Print JESUS MANUEL Number, [id number], Constant Indicator Start Date: 08/27/08 Status: Ordered [...] 0, 08/27/08 13:01:12, Print JESUS MANUEL Number, [id number], Constant Indicator Start Date: 08/27/08 Status: Ordered [...] ant Atherosclerosis of aorta(Confirmed) Active Atherosclerosis of [place] ar teries with claudication(Confirmed) Active Bradycardia(Confirmed) Active Marijuana use(Confirmed) Active Depression(Confirmed) Active Ex-cigarette smoker(Confirmed) Active Claudication(Confirmed) Active Atheroscler [place] arteries the extremities w/[place]mit claudication(Confirmed) Active PAD (peripheral artery disease)(Confirmed) Active Neuropathy, peripheral(Confirmed) Active Unsteady gait(Confirmed) Active Social History Social History Type Response Tobacco Other: smokes mariju donna. Sex
--- OUTSIDE RECORDS SUMMARY | 2023-05-17 23:20 | XMS_ITS | Continuity of Care Document ---
Author Name Unknown Organization [facility] Address [address] [place] [address]- Care Team Providers Care Parole Supervisor Name Role Phone Chelsea LUZ, Tresa Primary Care Physician [phone] Encounter [facility] [place] Date(s): 07/13/22 - 07/20/22 [facility] [address] [place] [address] Attending Physician: Colleen POWELL, Nicole James Admitting Physician: Colleen POWELL, Nicole James Referring Physician: Tresa Tran MD Allergies, Adverse Reactions, Alerts No Known Allergies Medications acetaminophen 325 mg oral tablet = 650 mg, By Mouth, Every 4 hours, PRN Pain , Mild Temperature, 0 Refills, Maintenance, 05/22/14 13:30:58, Tablet Start Date: 05/22/14 Status: Ordered aspirin 81 mg oral enteric coated capsule 81, mg, 1, capsule, By Mouth, Daily, 0, 0, 08/27/08 13:00:50, Print JESUS MANUEL Number, [id number], Constant Indicator Start Date: 08/27/08 Status: Ordered [...] 0, 08/27/08 13:01:12, Print JESUS MANUEL Number, [id number], Constant Indicator Start Date: 08/27/08 Status: Ordered [...] Atherosclerosis of aorta Confirmed Active Atherosclerosis of [place] arteries with claudication Confirmed Active Bradycardia Confirmed Active Marijuana use Confirmed Active Depression Confirmed Active Ex-cigarette smoker Confirmed Active Claudication Confirmed Active Atheroscler [place] arteries the extremities w/intermit claudication Confirmed Active PAD (peripheral artery disease) Confirmed Active Neuropathy, peripheral Confirmed Active Unsteady gait Confirmed Active Vital Signs Most recent to oldest [Reference Range]: 1 Height 172 cm (07/13/22 1:30 PM) Weight 71.8 kg (07/13/22 1:30 PM) Oxygen Saturation [94-100 %] 98 % (07/13/22 1:30 PM) Pulse Rate [55-90 bpm] 85 bpm (07/13/22 1:30 PM) Body Mass Index [18.5-24.99 kg/m2] 24.27 kg/m2 (07/13/22 1:30 PM) Blood Pressure [90-138/55-84 mm Hg] 158/ 78mm Hg *H* (07/13/22 1:30 PM) Mode of Delivery (Oxygen) Room air (07/13/22 1:30 PM) Blood pressure sites Arm, left (07/13/22 1:30 PM) Weight Obtained Via Standing scale (07/13/22 1:30 PM) Social History Social History Type Response Tobacco Other: smokes mariju donna. Sex Note * Rosina Dsouza MA: PERFORM, SIGN, VERIFY Event Display: Patient Education/Instruction Authored Date: [id number] *[facility] [address] Clinical Summary Name SHAHRAM MYERS Age 77 Years 1945 PCP Chelsea LUZ , Tresa PCP Visit Date 07/13/2022 13:01:00 Additional Instructions: Scheduled Appointments?? Future Appointments ?No Future Appointments Scheduled Follow-Up Instructions ?? Diagnosis Medications: Please continue your medications until treatment is completed or stopped by your provider. Discuss any questions related to medications with your provider. Medications to Continue with No Changes These medications were not printed or sent to your pharmacy Acetaminophen (acetaminophen 325 mg oral tablet) 650 Milligram Oral every 4 hours as needed Pain , Mild Temperature. Next Dose: Aspirin (aspirin 81 mg oral enteric coated capsule) 1 capsule Oral Daily. Next Dose: Atorvastatin (atorvastatin 80 mg oral tablet) 1 tab(s) Oral Daily at Bedtime. Next Dose: BuPROpion (buPROPion 100 mg oral tablet) 1 tab(s) Oral twice a day. Next Dose: Cholecalciferol (Vitamin D3) 1 tab(s) Oral Daily. Next Dose: Cilostazol (cilostazol 100 mg oral tablet) 1 tab(s) Oral Daily. Next Dose: Clonidine (clonidine 0.3 mg oral tablet) 1 tab(s) Oral twice a day. Next Dose: Doxazosin (doxazosin 8 mg oral tablet) 1 tab(s) Oral Daily at Bedtime. Next Dose: Lisinopril (lisinopril 40 mg oral tablet) 1 tab(s) Oral Daily. Next Dose: Metoprolol (metoprolol 100 mg oral tablet) 1.5 tab(s) Oral Daily. Next Dose: NIFEdipine (Nifedical XL 30 mg oral tablet, extended release) 1 tab(s) Oral Daily. Next Dose: Allergy Info:?? NKA Medications Given This Visit Future Orders ?No future orders Vital Signs Height 172 cm Weight 71.8 kg BMI 24.27 kg/m2 Blood Pressure 158 mm Hg/78 mm Hg Temperature Pulse Rate 85 bpm Respiratory Rate 02 Sat Mode of Delivery 98 %/Room air You can now view a summary of your hospital visit from the comfort of your home through a free online portal called [employer]. [employer] is a website that allows you to securely view your medical information including discharge summary, medications and follow-up visits. ??You can alsosend a secure electronic message to your doctor???s office to request appointments, renew medications or just ask a question. You can enroll at [email or web address] or register during your next office visit. Disclaimer:?? The information provided is of a general nature and is intended to be used in conjunction with the recommendations and advice of your health care practitioner. ??Every effort has been made to ensure that the information provided is accurate and complete at the time it is provided to you however, as your needs change, or, as new ??information becomes available, different or additional instructions may be required. If you have questions, please consult with your primary care provider or pharmacist, as appropriate. ??This information is not intended to serve as substitution for assessment and evaluation by a qualified health care provider. If you do not have a primary care provider, you may find a [facility] provider by calling [facility] at [phone]. For information about the plan of care including goals and instructions for your diagnosis, please see the patient education orders section of this document. Patient Education Materials?? The content of this educational material or handout may have been modified, supplemented, or adapted from its original content and format to support your individualized medical care. Patient Care team information Care Team Personnel Name: Andreea Bullard RN Position: S RN Member Role: Primary Care Nurse Name: Nighat Chun RN Position: S RN Member Role: Primary Care Nurse Name: Tresa Tran MD Position: S Outreach Member Role: PCP Address: Address: [address] [place] [id number] Name: Albina Landrum RN Position: S RN Member Role: Primary Care Nurse Care Team Related Persons Name: SHAHRAM MYERS Address: home [address] [place] [address] Name: SHARRON MYERS Address: [address] [place] [address]
--- OUTSIDE RECORDS SUMMARY | 2023-05-17 23:20 | XMS_ITS | Continuity of Care Document ---
Author Name Unknown Organization [facility] Address [address] [place] [address]- Care Team Providers Care Head Of Product Name Role Phone Chelsea LUZ, Tresa Primary Care Physician [phone] Encounter [facility] [place] Date(s): 08/04/22 - 09/03/22 [facility] [address] [place], [place] [email or web address]] Allergies, Adverse Reactions, Alerts No Known Allergies [...] 0, 08/27/08 13:00:50, Print JESUS MANUEL Number, [id number], Constant Indicator Start Date: 08/27/08 Status: Ordered [...] 0, 08/27/08 13:01:12, Print JESUS MANUEL Number, [id number], Constant Indicator Start Date: 08/27/08 Status: Ordered [...] Atherosclerosis of aorta Confirmed Active Atherosclerosis of [place] arteries with claudication Confirmed Active Bradycardia Confirmed Active Marijuana use Confirmed Active Depression Confirmed Active Ex-cigarette smoker Confirmed Active Claudication Confirmed Active Atheroscler [place] arteries the extremities w/intermit claudication Confirmed Active [...] S Outreach Member Role: PCP Address: Address: [address] [place] [address] Name: Albina Landrum RN Position: S RN Member Role: Primary Care Nurse Care Team Related Persons Name: LOUIS SHAHRAM Address: home [address] [place] [address] Name: SHARRON MYERS Address: home [address] [place] [address]
--- OUTSIDE RECORDS SUMMARY | 2023-05-17 23:20 | XMS_ITS | Continuity of Care Document ---
Author Name Unknown Organization [facility] Address [address] [place] [address]- Care Team Providers Care Art Psychotherapist Name Role Phone Chelsea LUZ, Tresa Primary Care Physician [phone] Encounter [facility] [place] Date(s): 09/25/20 - 10/25/20 [facility] [address] [place], [place] [address] Allergies, Adverse Reactions, Alerts Substance Reaction Severity Status NKA Active Medications acetaminophen 325 mg oral tablet = 650 mg, By Mouth, Every 4 hours, PRN Pain , Mild Temperature, 0 Refills, Maintenance, 05/22/14 13:30:58, Tablet Start Date: 05/22/14 Status: Ordered aspirin 81 mg oral enteric coated capsule 81, mg, 1, capsule, By Mouth, Daily, 0, 0, 08/27/08 13:00:50, Print JESUS MANUEL Number, [id number], Constant Indicator Start Date: 08/27/08 Status: Ordered [...] 0, 08/27/08 13:01:12, Print JESUS MANUEL Number, [id number], Constant Indicator Start Date: 08/27/08 Status: Ordered [...] ant Atherosclerosis of aorta(Confirmed) Active Atherosclerosis of [place] ar teries with claudication(Confirmed) Active Bradycardia(Confirmed) Active Marijuana use(Confirmed) Active Depression(Confirmed) Active Ex-cigarette smoker(Confirmed) Active Claudication(Confirmed) Active Atheroscler [place] arteries the extremities w/intermit claudication(Confirmed) Active PAD (peripheral artery disease)(Confirmed) Active Neuropathy, peripheral(Confirmed) Active Unsteady gait(Confirmed) Active Social History Social History Type Response Tobacco Other: smokes mariju donna. Sex
--- OUTSIDE RECORDS SUMMARY | 2023-05-17 23:20 | XMS_ITS | Continuity of Care Document ---
Author Name Unknown Organization [facility] Address [address] [place] [address]- Care Team Providers Care Medical Assistant Supervisor Name Role Phone Chelsea LUZ, Tresa Primary Care [id number] Date[facility]04[facility]23 - 03/11/23 [facility] [address] [place] [address]- Attending Physician: Colleen POWELL, Nicole James Admitting Physician: Colleen POWELL, Nicole James Allergies, Adverse Reactions, Alerts No Known Allergies [...] 0, 08/27/08 13:00:50, Print JESUS MANUEL Number, [id number], Constant Indicator Start Date: 08/27/08 Status: Ordered [...] 0, 08/27/08 13:01:12, Print JESUS MANUEL Number, [id number], Constant Indicator Start Date: 08/27/08 Status: Ordered [...] Atherosclerosis of aorta Confirmed Active Atherosclerosis of [place] arteries with claudication Confirmed Active Bradycardia Confirmed Active Marijuana use Confirmed Active Depression Confirmed Active Ex-cigarette smoker Confirmed Active Claudication Confirmed Active Atheroscler [place] arteries the extremities w/intermit claudication Confirmed Active PAD (peripheral artery disease) Confirmed Active Neuropathy, peripheral Confirmed Active Unsteady gait Confirmed Active Vital Signs Most recent to oldest [Reference Range]: 1 Height 172 cm (03/04/23 3:26 PM) Oxygen Saturation [94-100 %] 97 % (03/04/23 3:26 PM) Pulse Rate [55-90 bpm] 71 bpm (03/04/23 3:26 PM) Blood Pressure [90-138/55-84 mm Hg] 118/ 62mm Hg (03/04/23 3:26 PM) Mode of Delivery (Oxygen) Room air (03/04/23 3:26 PM) Blood pressure sites Arm, left (03/04/23 3:26 PM) Dry Weight 69.4 kg (03/04/23 3:26 PM) Dry Weight Obtained Via Patient/family s tated (03/04/23 3:26 PM) Social History Social History Type Response Tobacco Other: smokes mariju donna. Sex Note * Nivia Wilson: PERFORM, SIGN, VERIFY Event Display: Patient Education/Instruction Authored Date: [id number] [facility] *BVS [address] Clinical Summary Name SHAHRAM MYERS Age 77 Years 1945 PCP Chelsea LUZ , Tresa PCP Visit Date 03/04/2023 15:14:00 Additional Instructions: Scheduled Appointments?? Future Appointments ?No Future Appointments Scheduled Follow-Up Instructions ?? With: Address: When: Colleen POWELL, Nicole Erika 03/04/2023 12:00 AM Comments: 6 months with TRAN Diagnosis Medications: Please continue your medications until [...] tab(s) Oral Daily at Bedtime. Next Dose: Fluticasone-Salmeterol (Advair Diskus 100 mcg-50 mcg inhalation powder) Inhalation twice a day. Next Dose: Lisinopril (lisinopril 40 mg oral tablet) 1 tab(s) Oral Daily. Next Dose: Metoprolol (metoprolol 100 mg oral tablet) 1.5 tab(s) Oral Daily. Next Dose: NIFEdipine (Nifedical XL 30 mg oral tablet, extended release) 1 tab(s) Oral Daily. Next Dose: Allergy Info:?? NKA Medications Given This Visit Future Orders ?VL Ankle Brachial Indices? Order Date:09/04/23?- Complete by?10/02/23 Vital Signs Height 172 cm Weight BMI Blood Pressure 118 mm Hg/62 mm Hg Temperature Pulse Rate 71 bpm Respiratory Rate 02 Sat Mode of Delivery 97 %/Room air You can now view a summary of your hospital visit from the comfort of your home through a free online portal called Zenoss. Zenoss is a website that allows you to securely view your medical information including discharge summary, medications and follow-up visits. ??You can alsosend a secure electronic message to your doctor???s office to request appointments, renew medications or just ask a question. You can enroll at [email or web address] or register during your next office visit. [...] primary care provider, you may find a [facility] provider by calling [facility] at [phone]. For information about the plan of care [...] Team Personnel Name: Andreea Bullard RN Position: [facility] RN Member Role: Primary Care Nurse Name: Nighat Chun RN Position: S RN Member Role: Primary Care Nurse Name: Tresa Tran MD Position: S Outreach Member Role: PCP Address: Address: [address] [place] [address] Name: Albina Landrum RN Position: S RN Member Role: Primary Care Nurse Care Team Related Persons Name: LOUIS SHAHRAM Address: home [address] [place] [address] Name: SHARRON MYERS Address: [address] [place] [address]
--- OUTSIDE RECORDS SUMMARY | 2023-05-17 23:20 | XMS_ITS | Continuity of Care Document ---
Author Name Unknown Organization [facility] Address [address] [place] [address]- Care Team Providers Care Warehouse Record Clerk Name Role Phone Chelsea LUZ, Tresa Primary Care Physician [phone] [place] [facility] [place] 04/01/21 - 06/26/21 [facility] [address] [place] [address]- Attending Physician: Colleen POWELL, Nicole James Admitting Physician: Colleen POWELL, Nicole James Allergies, Adverse Reactions, Alerts Substance Reaction Severity Status NKA Active Medications acetaminophen 325 mg oral tablet = 650 mg, By Mouth, Every 4 hours, PRN Pain , Mild Temperature, 0 Refills, Maintenance, 05/22/14 13:30:58, Tablet Start Date: 05/22/14 Status: Ordered aspirin 81 mg oral enteric coated capsule 81, mg, 1, capsule, By Mouth, Daily, 0, 0, 08/27/08 13:00:50, Print JESUS MANUEL Number, [id number], Constant Indicator Start Date: 08/27/08 Status: Ordered [...] 0, 08/27/08 13:01:12, Print JESUS MANUEL Number, [id number], Constant Indicator Start Date: 08/27/08 Status: Ordered [...] ant Atherosclerosis of aorta(Confirmed) Active Atherosclerosis of [place] ar teries with claudication(Confirmed) Active Bradycardia(Confirmed) Active Marijuana use(Confirmed) Active Depression(Confirmed) Active Ex-cigarette smoker(Confirmed) Active Claudication(Confirmed) Active Atheroscler [place] arteries the extremities w/intermit claudication(Confirmed) Active PAD (peripheral artery disease)(Confirmed) Active Neuropathy, peripheral(Confirmed) Active Unsteady gait(Confirmed) Active Social History Social History Type Response Tobacco Other: smokes mariju donna. Sex
--- OUTSIDE RECORDS SUMMARY | 2023-05-17 23:20 | XMS_ITS | Continuity of Care Document ---
Author Name Unknown Organization [facility] Address [address] [place] [address]- Care Team Providers Care Research Librarian Name Role Phone Chelsea LUZ, Tresa Primary Care Physician [place] [facility] [place] 01/15/21 [facility] [address] [place] [address]- Allergies, Adverse Reactions, Alerts Substance Reaction Severity Status NKA Active Medications acetaminophen 325 mg oral tablet = 650 mg, By Mouth, Every 4 hours, PRN Pain , Mild Temperature, 0 Refills, Maintenance, 05/22/14 13:30:58, Tablet Start Date: 05/22/14 Status: Ordered aspirin 81 mg oral enteric coated capsule 81, mg, 1, capsule, By Mouth, Daily, 0, 0, 08/27/08 13:00:50, Print JESUS MANUEL Number, [id number], Constant Indicator Start Date: 08/27/08 Status: Ordered [...] 0, 08/27/08 13:01:12, Print JESUS MANUEL Number, [id number], Constant Indicator Start Date: 08/27/08 Status: Ordered [...] ant Atherosclerosis of aorta(Confirmed) Active Atherosclerosis of [place] ar teries with claudication(Confirmed) Active Bradycardia(Confirmed) Active Marijuana use(Confirmed) Active Depression(Confirmed) Active Ex-cigarette smoker(Confirmed) Active Claudication(Confirmed) Active Atheroscler [place] arteries the extremities w/intermit claudication(Confirmed) Active PAD (peripheral artery disease)(Confirmed) Active Neuropathy, peripheral(Confirmed) Active Unsteady gait(Confirmed) Active Social History Social History Type Response Tobacco Other: smokes mariju donna. Sex
--- OUTSIDE RECORDS SUMMARY | 2023-05-17 23:20 | XMS_ITS | Continuity of Care Document ---
Author Name Unknown Organization [facility] Address [address] [place] [address]- Care Team Providers Care Anesthesiology Medical Doctor Name Role Phone Chelsea LUZ, Tresa Primary Care Physician [phone] Encounter [facility] [place] Date(s): 09/19/19 - 09/29/19 [facility] [address] [place] [address] Attending Physician: Karla Mathew Admitting Physician: AdmKarla hayes Referring Physician: AdmtrKarla Allergies, Adverse Reactions, Alerts Substance Reaction Severity Status NKA Active Medications acetaminophen 325 mg oral tablet = 650 mg, By Mouth, Every 4 hours, PRN Pain , Mild Temperature, 0 Refills, Maintenance, 05/22/14 13:30:58, Tablet Start Date: 05/22/14 Status: Ordered aspirin 81 mg oral enteric coated capsule 81, mg, 1, capsule, By Mouth, Daily, 0, 0, 08/27/08 13:00:50, Print JESUS MANUEL Number, [id number], Constant Indicator Start Date: 08/27/08 Status: Ordered [...] 0, 08/27/08 13:01:12, Print JESUS MANUEL Number, [id number], Constant Indicator Start Date: 08/27/08 Status: Ordered [...] ant Atherosclerosis of aorta(Confirmed) Active Atherosclerosis of [place] ar teries with claudication(Confirmed) Active Bradycardia(Confirmed) Active Marijuana use(Confirmed) Active Depression(Confirmed) Active Ex-cigarette smoker(Confirmed) Active Claudication(Confirmed) Active Atheroscler [place] arteries the extremities w/intermit claudication(Confirmed) Active PAD (peripheral artery disease)(Confirmed) Active Neuropathy, peripheral(Confirmed) Active Unsteady gait(Confirmed) Active Social History Social History Type Response Tobacco Other: smokes mariju donna. Sex
--- OUTSIDE RECORDS SUMMARY | 2023-05-17 23:20 | XMS_ITS | Continuity of Care Document ---
Author Name Unknown Organization [facility] Address [address] [place] [address]- Care Team Providers Care Thread Drawer Name Role Phone Chelsea LUZ, Tresa Primary Care Physician Encounter [facility] Date(s): 01/08/21 - 05/01/21 [facility] [address] [place] [address] Attending Physician: Colleen POWELL, Nicole James Admitting Physician: Colleen POWELL, Nicole James Referring Physician: Colleen POWELL, Nicole James Allergies, Adverse [...] 0, 08/27/08 13:00:50, Print JESUS MANUEL Number, [id number], Constant Indicator Start Date: 08/27/08 Status: Ordered [...] 0, 08/27/08 13:01:12, Print JESUS MANUEL Number, [id number], Constant Indicator Start Date: 08/27/08 Status: Ordered [...] ant Atherosclerosis of aorta(Confirmed) Active Atherosclerosis of [place] ar teries with claudication(Confirmed) Active Bradycardia(Confirmed) Active Marijuana use(Confirmed) Active Depression(Confirmed) Active Ex-cigarette smoker(Confirmed) Active Claudication(Confirmed) Active Atheroscler [place] arteries the extremities w/intermit claudication(Confirmed) Active PAD (peripheral artery disease)(Confirmed) Active Neuropathy, peripheral(Confirmed) Active Unsteady gait(Confirmed) Active Social History Social History Type Response Tobacco Other: smokes mariju donna. Sex
--- OUTSIDE RECORDS SUMMARY | 2023-05-17 23:20 | XMS_ITS | Continuity of Care Document ---
Author Name Unknown Organization [facility] Address [address] [place] [address]- Care Team Providers Care Caramel Maker Name Role Phone Chelsea LUZ, Tresa Primary Care Physician [phone] [place] [facility] [place] 07/05[place]19 - 10/19/19 [facility] [address] [place] [address]- [facility] Attending Physician: Jalil Card MD Admitting Physician: Jalil Card MD Referring Physician: Jalil Card MD Allergies, Adverse Reactions, Alerts Substance Reaction Severity Status NKA Active Medications acetaminophen 325 mg oral tablet = 650 mg, By Mouth, Every 4 hours, PRN Pain , Mild Temperature, 0 Refills, Maintenance, 05/22/14 13:30:58, Tablet Start Date: 05/22/14 Status: Ordered aspirin 81 mg oral enteric coated capsule 81, mg, 1, capsule, By Mouth, Daily, 0, 0, 08/27/08 13:00:50, Print JESUS MANUEL Number, [id number], Constant Indicator Start Date: 08/27/08 Status: Ordered [...] 0, 08/27/08 13:01:12, Print JESUS MANUEL Number, [id number], Constant Indicator Start Date: 08/27/08 Status: Ordered [...] ant Atherosclerosis of aorta(Confirmed) Active Atherosclerosis of [place] ar teries with claudication(Confirmed) Active Bradycardia(Confirmed) Active Marijuana use(Confirmed) Active Depression(Confirmed) Active Ex-cigarette smoker(Confirmed) Active Claudication(Confirmed) Active Atheroscler [place] arteries the extremities w/intermit claudication(Confirmed) Active PAD (peripheral artery disease)(Confirmed) Active Neuropathy, peripheral(Confirmed) Active Unsteady gait(Confirmed) Active Social History Social History Type Response Tobacco Other: smokes mariju donna. Sex
--- OUTSIDE RECORDS SUMMARY | 2023-05-17 23:20 | XMS_ITS | Continuity of Care Document ---
Author Name Unknown Organization [facility] Address [address] [place] [address]- Care Team Providers Care Wash Helper Name Role Phone Chelsea LUZ, Tresa Primary Care Physician [phone] [id number] Date[facility] 09/01/22 - 09/08/22 [facility] [address] [place], [place] [address] Attending Physician: Colleen POWELL, Nicole James Admitting [...] 0, 08/27/08 13:00:50, Print JESUS MANUEL Number, [id number], Constant Indicator Start Date: 08/27/08 Status: Ordered [...] 0, 08/27/08 13:01:12, Print JESUS MANUEL Number, [id number], Constant Indicator Start Date: 08/27/08 Status: Ordered [...] Condition Confirmation Course Effective Dates Status H ealt Status Informant Atherosclerosis of aorta Confirmed Active Atherosclerosis of [place] arteries with claudication Confirmed Active Bradycardia Confirmed Active Marijuana use Confirmed Active Depression Confirmed Active Ex-cigarette smoker Confirmed Active Claudication Confirmed Active Atheroscler [place] arteries the extremities w/intermit claudication Confirmed Active PAD (peripheral artery disease) Confirmed Active Neuropathy, peripheral Confirmed Active Unsteady gait Confirmed Active Vital Signs Most recent to oldest [Reference Range]: 1 Height 172 cm (09/01/22 2:46 PM) Weight 76.36 kg (09/01/22 2:46 PM) Oxygen Saturation [94-100 %] 96 % (09/01/22 2:46 PM) Pulse Rate [55-90 bpm] 67 bpm (09/01/22 2:46 PM) Body Mass Index [18.5-24.99 kg/m2] 25.81 kg/m2 *H* (09/01/22 2:46 PM) Blood Pressure [90-138/55-84 mm Hg] 124/ 78mm Hg (09/01/22 2:46 PM) Blood pressure sites Arm, left (09/01/22 2:46 PM) Weight Obtained Via Patient/family state d (09/01/22 2:46 PM) Social History Social History Type Response Tobacco Other: smokes mariju donna. Sex Note * Nicole Smith: PERFORM, SIGN, VERIFY Event Display: Patient Education/Instruction Authored Date: [id number] [facility] *BVS [address] Clinical Summary Name SHAHRAM MYERS Age 77 Years 1945 PCP Tresa Tran MD PCP Visit Date 09/01/2022 14:18:00 Additional Instructions: Scheduled Appointments?? Future Appointments ?No [...] orders Vital Signs Height 172 cm Weight 76.36 kg BMI 25.81 kg/m2 Blood Pressure 124 mm Hg/78 mm Hg Temperature Pulse Rate 67 bpm Respiratory Rate 02 Sat Mode of Delivery 96 %/ You can now view a summary of your hospital visit from the comfort of your home through a free online portal called [employer]. [employer] is a website that allows you to securely view your medical information including discharge summary, medications and follow-up visits. ??You can alsosend a secure electronic message to your doctor???s office to request appointments, renew medications or just ask a question. You can enroll at [email or web address] or register during your next office visit. [...] primary care provider, you may find a [facility] provider by calling [facility] [employer] at [phone]. For information about the plan of care [...] S Outreach Member Role: PCP Address: Address: [address] [place] [address]- Name: Albina Landrum RN Position: S RN Member Role: Primary Care Nurse Care Team Related Persons Name: SHAHRAM MYERS Address: home [address] [place] [address] Name: SHARRON MYERS Address: [address] [place] [address]
--- OUTSIDE RECORDS SUMMARY | 2023-05-17 23:20 | XMS_ITS | Continuity of Care Document ---
Author Name Unknown Organization [facility] Address [address] [place] [address]- Care Team Providers Care Student Success Coach Name Role Phone Chelsea LUZ, Tresa Primary Care Physician [place] [facility] [id number] Date(s): 05/27/21 - 06/26/21 [facility] [address] [place], [place] [address] Attending Physician: Admtr, Barron8 Admitting Physician: Admtr, ArKaetrina Referring Physician: Admtr, Ar8 Allergies, Adverse Reactions, [...] 0, 08/27/08 13:00:50, Print JESUS MANUEL Number, [id number], Constant Indicator Start Date: 08/27/08 Status: Ordered [...] 0, 08/27/08 13:01:12, Print JESUS MANUEL Number, [id number], Constant Indicator Start Date: 08/27/08 Status: Ordered [...] ant Atherosclerosis of aorta(Confirmed) Active Atherosclerosis of [place] ar teries with claudication(Confirmed) Active Bradycardia(Confirmed) Active Marijuana use(Confirmed) Active Depression(Confirmed) Active Ex-cigarette smoker(Confirmed) Active Claudication(Confirmed) Active Atheroscler [place] arteries the extremities w/intermit claudication(Confirmed) Active PAD (peripheral artery disease)(Confirmed) Active Neuropathy, peripheral(Confirmed) Active Unsteady gait(Confirmed) Active Social History Social History Type Response Tobacco Other: smokes mariju donna. Sex
--- OUTSIDE RECORDS SUMMARY | 2023-05-17 23:20 | XMS_ITS | Continuity of Care Document ---
Author Name Unknown Organization [facility] Address [address] [place] [address]- Care Team Providers Care Door Slinger Name Role Phone Chelsea LUZ, Tresa Primary Care Physician [place] [facility] [place] 09/17/19 - 09/27/19 [facility] [address] [place] [address]- [facility] Attending Physician: Karla Mathew Admitting Physician: Karla Mathew Referring Physician: AdmtrKarla Allergies, Adverse Reactions, Alerts [...] 0, 08/27/08 13:00:50, Print JESUS MANUEL Number, [id number], Constant Indicator Start Date: 08/27/08 Status: Ordered [...] 0, 08/27/08 13:01:12, Print JESUS MANUEL Number, [id number], Constant Indicator Start Date: 08/27/08 Status: Ordered [...] ant Atherosclerosis of aorta(Confirmed) Active Atherosclerosis of [place] ar teries with claudication(Confirmed) Active Bradycardia(Confirmed) Active Marijuana use(Confirmed) Active Depression(Confirmed) Active Ex-cigarette smoker(Confirmed) Active Claudication(Confirmed) Active Atheroscler [place] arteries the extremities w/intermit claudication(Confirmed) Active PAD (peripheral artery disease)(Confirmed) Active Neuropathy, peripheral(Confirmed) Active Unsteady gait(Confirmed) Active Social History Social History Type Response Tobacco Other: smokes mariju donna. Sex
--- OUTSIDE RECORDS SUMMARY | 2023-05-17 23:21 | XMS_ITS | Patient Health Record ---
Author Name Unknown Organization [facility] Address [address] [place] [address] Care Team Providers Care Doper Operator Name Role Phone Chelsea LUZ, Tresa Primary Care Provider Maycol Ayers [phone] REASON FOR REFERRAL No Information MEDICATIONS Medication SIG (Take, Route, Frequency, Duration) Notes Start Date End Date Status NIFEdipine ER 30mg 08/15/2023 08/15/2023 Active Cilostazol 50mg 08/15/2023 08/15/2023 Ac tive Clopidogrel Bisulfate 75mg 08/15/2023 Active Aspir-81 81mg 08/15/2023 08/15/2023 Acti ve Doxazosin Mesylate 8mg 08/15/20232023 Active cloNIDine HCl 0.3mg 08/15/2023 1 Active Atorvastatin Calcium 80mg 08/15/202308/2023 Active Metoprolol Succinate ER 100mg 08/15/2023 08/15/2023 Active Lisinopril 40mg 08/15/2023 08/15/2023 Ac tive Colyte with Flavor Packs 240 GM as directed Orally as directed for 1 day(s) 02/08/2013 Active SOCIAL HISTORY Sex Assigned At : Social History Observation Description Sex Assigned At Unknown PROBLEMS Problem Type ICD Code Onset Dates Problem Status W/U Status Risk SNOMED Code Notes Problem Screening for colon cancer (V76.51) Active confirmed Screening for colon cancer (541159366) Problem History of adenomatous polyp of colon (V12.72) Active confirmed History of adenomatous polyp of colon (483696184) Problem Chronic hepatitis C (070.54) Active confirmed Chronic hepatitis C (289276106) PLAN OF TREATMENT Future Test Test Name Order Date COLONOSCOPY 02/08/2013 Next Appt Details Provider Name:Maycol Holm , 09/01/2023 09:20:00 AM, [address], [address], [place], [address], Insurance Providers Payer Name Payer Address Payer Phone Subscriber Number Group Number Insured Name Patient Relationship to Insured Coverage Start Date Coverage End Date [employer] (No Referra l) [address] [address] [place] [address] [id number] SHAHRAM MYERS Self - patient is the insured MEDICAL (GENERAL) HISTORY Medical History History ICD Code Screening colonoscopy 09-11-2007-2 tubula r adenomas removed chronic hepatis C-Rx'd with 4 mos of PEG-Intron and Ribavirin in 2006 but without any improvemnet and therefore stopped; Genotype 1; 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 Perez Surgical History Surgery Date(Month/Year) hernia surgery back surgery for disk disease.
--- OUTSIDE RECORDS SUMMARY | 2023-05-17 23:21 | XMS_ITS | Continuity of Care Document ---
Author Name Unknown Organization [facility] ter Address [address] [place] [address]- Care Team Providers Care Sock Boarder Name Role Phone Chelsea LUZ, Tresa [id number] - 03/10/[address] [address]- Discharge Disposition: A-D/C Home Attending Physician: Stephie LUZ, Jalil Sandoval Admitting Physician: Jalil Card MD Referring Physician: Jalil Card MD Allergies, Adverse Reactions, Alerts No Known [...] 0, 08/27/08 13:00:50, Print JESUS MANUEL Number, [id number], Constant Indicator Start Date: 08/27/08 Status: Ordered [...] 0, 08/27/08 13:01:12, Print JESUS MANUEL Number, [id number], Constant Indicator Start Date: 08/27/08 Status: Ordered [...] Atherosclerosis of aorta Confirmed Active Atherosclerosis of [place] arteries with claudication Confirmed Active Bradycardia Confirmed Active Marijuana use Confirmed Active Depression Confirmed Active Ex-cigarette smoker Confirmed Active Claudication Confirmed Active Atheroscler [place] arteries the extremities w/intermit claudication Confirmed Active PAD (peripheral artery disease) Confirmed Active Neuropathy, peripheral Confirmed Active Unsteady gait Confirmed Active Social History Social History Type Response Tobacco Other: smokes mariju donna. Sex Note * Janae Johnson: PERFORM, SIGN, VERIFY Event Display: Cardiac Rehab Note Authored Date: [id number] Patient: RD MYERS Age: 77 years Sex: Male : 1945 Associated Diagnoses: None Author: Janae Johnson [facility] Cardiac Rehab Discharge Summary SET PAD Program Exercise Treadmill Test Initial Session 12 Discharge Claudication Onset 1:55 min 1:12 min Did not complete Total Walking Time 4:11 min 4:56 min Did not complete METs 3.08 METs 3.6 METs _ Resting BP 146/68 140/60 _ Exercise Tolerance Initial Session 12 Discharge Total Walking Time 12 min 12:25 min 12:25 min METs 2.5 METs 2.5 METs 2.5 METs Resting BP 154/70 148/70 3/72 Overalll Attendance (#/wk) 3x/wk Completed Session 21 Patient Education Provided: PAD Overview, Focus on Walking, Controlling your cholesterol, Foot Care, Smoking Cessation (if applicable), Medications, Focus on Ischemia, Diabetes, Blood Pressure Comments/Post Discharge Exercise Plan: Rd completed 21 sessions. This program was very challenging for him. His last session was on 01/25/23 and he has not returned. We called x 2 for plans to return. Thank you for referring Rd to Cardiac Rehabilitation's SET PAD program. We appreciate your continued support of the program. Report sent to all consultants: Stephie LUZ, Jalil Sandoval. * Event Display: Cardiac Rehab Telemetry Report Authored Date: * Event Display: Cardiac Rehab Telemetry Report Authored Date: Patient Care team information Care Team Personnel Name: Andreea Bullard RN Position: [facility] RN Member Role: Primary Care Nurse Name: Nighat Chun RN Position: S RN Member Role: Primary Care Nurse Name: Tresa Tran MD Position: S Outreach Member Role: PCP Address: Address: [address] [place] [address]- Name: Albina Landrum RN Position: S RN Member Role: Primary Care Nurse Care Team Related Persons Name: RD MYERS Address: home [address] [place] [address] Name: SHARRON MYERS Address: home [address] [place] [address]
--- OUTSIDE RECORDS SUMMARY | 2023-05-17 23:21 | XMS_ITS | Continuity of Care Document ---
Author Name Unknown Organization [facility] Address [address] [place] [address]- Care Team Providers Care Qa Intern Name Role Phone Chelsea LUZ, Tresa Primary Care Physician [phone] [place] [facility] [place]08[place] - 01/15/21 [facility] [address] [place] [id number] Attending Physician: Colleen POWELL, Nicole James Admitting [...] 0, 08/27/08 13:00:50, Print JESUS MANUEL Number, [id number], Constant Indicator Start Date: 08/27/08 Status: Ordered [...] 0, 08/27/08 13:01:12, Print JESUS MANUEL Number, [id number], Constant Indicator Start Date: 08/27/08 Status: Ordered [...] ant Atherosclerosis of aorta(Confirmed) Active Atherosclerosis of [place] ar teries with claudication(Confirmed) Active Bradycardia(Confirmed) Active Marijuana use(Confirmed) Active Depression(Confirmed) Active Ex-cigarette smoker(Confirmed) Active Claudication(Confirmed) Active 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/intermit claudication(Confirmed) Active PAD (peripheral artery disease)(Confirmed) Active Neuropathy, peripheral(Confirmed) Active Unsteady gait(Confirmed) Active Vital Signs Most recent to oldest [Reference Range]: 1 Height 172 cm (01/08/21 3:56 PM) Weight 70.76 kg (01/08/21 3:56 PM) Oxygen Saturation [94-100 %] 98 % (01/08/21 3:56 PM) Pulse Rate [55-90 bpm] 69 bpm (01/08/21 3:56 PM) Body Mass Index [18.5-24.99] 23.92 (01/08/21 3:56 PM) Blood Pressure [90-138/55-84 mm Hg] 140/ 88mm Hg *H* (01/08/21 3:56 PM) Blood pressure sites Arm, left (01/08/21 3:56 PM) Weight Obtained Via Patient/family state d (01/08/21 3:56 PM) Social History Social History Type Response Tobacco Other: smokes mariju donna. Sex
--- OUTSIDE RECORDS SUMMARY | 2023-05-17 23:21 | XMS_ITS | Continuity of Care Document ---
Author Name Unknown Organization [facility] Address [address] [place] [address]- Care Team Providers Care Civil Division Commander Deputy Sheriff Name Role Phone Chelsea LUZ, Tresa Primary Care Physician [phone] [place] [facility] [place] [id number] Date(s): 04/24/21 - 05/24/21 [facility] [address] [place], [place] [address] Attending Physician: AdmKarla hayes Admitting Physician: Admtr, Ar8 Referring Physician: Admtr, Ar8 Allergies, Adverse Reactions, [...] 0, 08/27/08 13:00:50, Print JESUS MANUEL Number, [id number], Constant Indicator Start Date: 08/27/08 Status: Ordered [...] 0, 08/27/08 13:01:12, Print JESUS MANUEL Number, [id number], Constant Indicator Start Date: 08/27/08 Status: Ordered [...] ant Atherosclerosis of aorta(Confirmed) Active Atherosclerosis of [place] ar teries with claudication(Confirmed) Active Bradycardia(Confirmed) Active Marijuana use(Confirmed) Active Depression(Confirmed) Active Ex-cigarette smoker(Confirmed) Active Claudication(Confirmed) Active Atheroscler [place] arteries the extremities w/intermit claudication(Confirmed) Active PAD (peripheral artery disease)(Confirmed) Active Neuropathy, peripheral(Confirmed) Active Unsteady gait(Confirmed) Active Social History Social History Type Response Tobacco Other: smokes mariju donna. Sex
--- OUTSIDE RECORDS SUMMARY | 2023-05-17 23:21 | XMS_ITS | Continuity of Care Document ---
Author Name Unknown Organization [facility] ter Address [address] [place] [address]- Care Team Providers Care Gis Developer Name Role Phone Chelsea LUZ, Tresa Primary Care Physician [phone] [place] [facility] [place] 09/22/22 - 10/31/[address] [address]- Attending Physician: Jalil Card MD Admitting Physician: [...] 0, 08/27/08 13:00:50, Print JESUS MANUEL Number, [id number], Constant Indicator Start Date: 08/27/08 Status: Ordered [...] 0, 08/27/08 13:01:12, Print JESUS MANUEL Number, [id number], Constant Indicator Start Date: 08/27/08 Status: Ordered [...] Atherosclerosis of aorta Confirmed Active Atherosclerosis of [place] arteries with claudication Confirmed Active Bradycardia Confirmed Active Marijuana use Confirmed Active Depression Confirmed Active Ex-cigarette smoker Confirmed Active Claudication Confirmed Active Atheroscler [place] arteries the extremities w/intermit claudication Confirmed Active PAD (peripheral artery disease) Confirmed Active Neuropathy, peripheral Confirmed Active Unsteady gait Confirmed Active Social History Social History Type Response Tobacco Other: smokes mariju donna. Sex Patient Care team information Care Team Personnel Name: Andreea Bullard RN Position: [facility] RN Member Role: Primary Care Nurse Name: Nighat Chun RN Position: [facility] RN Member Role: Primary Care Nurse Name: Tresa Tran MD Position: [facility] Outreach Member Role: PCP Address: Address: [address] [place] [address]- Name: Albina Landrum RN Position: [facility] RN Member Role: Primary Care Nurse Care Team Related Persons Name: SHAHRAM MYERS Address: home [address] [place] [address] Name: SHARRON MYERS Address: [address] [place] [address]
== END 2023-05-17 23:41 | disposition left against medical advice (07) ==
PROVIDERS: Physician Assistant; Emergency Provider Emergency Medicine; PCP Family Medicine
DX: R07.9 Chest pain, unspecified (principal); R51.9 Headache, unspecified; Z87.891 Personal history of nicotine dependence; Z11.52 Encounter for screening for COVID-19
CPT/HCPCS: 36415; 71045; 80053; 83735; 84484; 85025; 87635; 93005; 99283

== ENCOUNTER 2023-07-15 09:40 | Outpatient (REF) | payer MEDICARE, SELFPAY ==
[2023-07-15 11:41] LABS: Estimated Average Glucose 111 mg/dL; Hemoglobin A1c % 5.5 % (<6.0)
[2023-07-15 12:10] LABS: Alanine Aminotransferase 36 U/L (0-40); Albumin Level 4.5 g/dL (3.5-5.0); Alkaline Phosphatase 124 U/L (39-117); Anion Gap 14 (12-20); Aspartate Amino Transferase 27 U/L (5-37); Bilirubin Total 0.7 mg/dL (0.0-1.0); Blood Urea Nitrogen 22 mg/dL (9-16); Calcium 9.7 mg/dL (8.4-10.2); Carbon Dioxide 27 mmol/L (22-29); Chloride 107 mmol/L (96-108); Cholesterol 151 mg/dL (<200); Estimated Glomerular Filt Rate > 60; Glucose Random 136 mg/dL (60-115); HDL Cholesterol 50 mg/dL (>40); LDL Cholesterol Calculated 88 mg/dL (<100); Potassium 4.4 mmol/L (3.3-5.1); Sodium 144 mmol/L (135-145); Total Protein 8.1 g/dL (6.5-8.0); Triglycerides 67 mg/dL (<150)
[2023-07-15 12:39] LABS: Reflex LDLD? No
== END 2023-07-15 09:41 | disposition home or self-care (01) ==
LOC: HO.HHCL 09:40
PROVIDERS: Visit Provider Family Medicine
DX: I10 Essential (primary) hypertension (principal); E78.5 Hyperlipidemia, unspecified; R73.01 Impaired fasting glucose
CPT/HCPCS: 36415; 80053; 80061; 83036

== ENCOUNTER 2023-08-29 11:33 | Emergency (ER) | payer MEDICARE, MEDICAID, SELFPAY ==
--- NOTE | ~2023-08-29 | CT_ITS ---
EXAMINATION: CT ANGIOGRAM HEAD CT ANGIOGRAM NECK CLINICAL INFORMATION: Dizziness. Unsteadiness. Cerebellar symptoms. COMPARISON: CT head from 03/30/2014. TECHNIQUE: Initial noncontrast fare enforcement officer imaging of the head and neck was performed. Noncontrast head CT was also performed. Test bolus sequences followed by intravenous administration 70 mL of Omnipaque 350. Helical imaging was performed in the axial plane from the aortic arch to the skull vertex. Delayed postcontrast imaging of the head was also performed. The data was processed at the x ray technologist's workstation for generation of MIP sequences. Angled MIPs and volume rendered reformatted images were also generated at an offline 3D workstation. Stenoses are assessed in accordance with NASCET criteria unless otherwise indicated. This CT examination was performed using dose optimization techniques as appropriate, variously including the following: *Automated exposure control. *Adjustment of mA and/or kV according to patient size (this includes techniques or standardized protocols for targeted exams where dose is matched to indication/reason for exam; i.e. extremities or head). *Use of iterative reconstruction technique. DLP: 2246 mGy-cm FINDINGS: CT Head: There is no evidence of acute intracranial hemorrhage or edematous territorial infarction. Cartagena-white matter differentiation is preserved. A few foci of hypoattenuation in the periventricular and deep white matter are consistent with mild microangiopathy. Persistent cavum septum pellucidum et vergae with cyst formation, measuring up to 1.7 cm in diameter. Otherwise, the ventricles are normal in morphology and size. No evidence for obstructive hydrocephalus. No abnormal mass effect or midline shift. No extra-axial fluid collections. No pathologic intra-axial enhancement or regional oligemia. No acute soft tissue or osseous abnormalities. Chronic depressions of the right greater than left lamina papyracea. Mild mucosal thickening of the paranasal sinuses. The mastoid air cells and middle ear cavities are clear. Multifocal odontogenic enamel erosions and periapical lucencies. Bilateral lens extractions. CT Neck: The thyroid gland and remaining cervical soft tissues are within normal limits. Straightening of the normal cervical lordosis. Moderate degenerative anterolisthesis of C7 on T1. Advanced degenerative disc disease from C3-C7. There appears to be at least mild spinal canal stenosis at C6-C7. Facet and uncovertebral joint arthropathy leads to osseous encroachment on the neural foramina from C4-C7. CT Upper Chest: Mild to moderate centrilobular emphysema of the visualized upper lungs. Biapical pleural scarring. Neck CTA: Aortic Arch: Normal contour and caliber with moderate calcific atherosclerotic disease. Classic 3 vessel branching pattern of the aortic arch. Great Vessel Origins: No significant stenosis of the branch origins. Right Common Carotid Artery: No focal stenosis or occlusion. Cervical Right Internal Carotid Artery: Calcific atherosclerotic disease of the carotid bulb and proximal internal carotid artery causing less than 50% stenosis. Left Common Carotid Artery: No focal stenosis or occlusion. Cervical Left Internal Carotid Artery: Calcific atherosclerotic disease of the carotid bulb and proximal internal carotid artery causing less than 50% stenosis. Cervical Right Vertebral Artery: No focal stenosis or occlusion. Cervical Left Vertebral Artery: Mildly dominant. No focal stenosis or occlusion. Brain CTA: Intracranial Internal Carotid Arteries: Calcific atherosclerotic disease of the intracranial internal carotid arteries without occlusion or flow-limiting stenosis. Right Anterior Cerebral Artery: Normal A1 segment. Normal opacification of the distal BLAYNE segments. Left Anterior Cerebral Artery: Normal A1 segment. Normal opacification of the distal BLAYNE segments. Anterior Communicating Artery: Normal. Right Middle Cerebral Artery: Normal M1 segment of the MCA without focal stenosis or occlusion. Normal arborization of the distal segments. Left Middle Cerebral Artery: Normal M1 segment of the MCA without focal stenosis or occlusion. Normal arborization of the distal segments. Right Vertebral Artery: Atherosclerotic disease of the V4 segment without flow-limiting stenosis. Normal opacification of the proximal segments of the posterior inferior cerebellar artery. Left Vertebral Artery: Atherosclerotic disease of the V4 segment without flow-limiting stenosis. Normal opacification of the proximal segments of the posterior inferior cerebellar artery. Basilar Artery: Normal without focal stenosis or occlusion. Normal appearance of the proximal superior cerebellar arteries. Right Posterior Cerebral Artery: Normal P1 segment. Normal opacification of the distal BAGGAGEMASTER segments. Left Posterior Cerebral Artery: Normal P1 segment. Normal opacification of the distal BAGGAGEMASTER segments. Normal opacification of the superior sagittal, straight, transverse, and sigmoid sinuses. CT/CT angio head neck IMPRESSION: 1. No evidence of acute intracranial hemorrhage or edematous territorial infarction. Mild underlying microangiopathy. 2. CTA of the head and neck without proximal occlusion or flow-limiting stenosis. 3. Moderate multilevel degenerative spondyloarthropathy of the cervical spine. There appears to be at least mild spinal canal stenosis at C6-C7. 4. Emphysema.
[2023-08-29 11:54] VITALS: BP 162/87; PULSE 63; RESP 18; TEMP 36.6; O2SAT 97; BMI 23.6
--- NOTE | 2023-08-29 11:54 | ED.GENADULT ---
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 Patient states that when he moves his head too fast, he becomes dizzy. Patient states that if he doesn't move his head, it resolves. Patient denies any lightheadedness, abdominal pain, nausea, vomiting, fever, chills, blurry vision, double vision, loss of vision, chest pain, difficulty breathing, shortness of breath, back pain, night sweats, pain with urination, increased urinary frequency, increased urinary urgency, blood in his urine or stool, syncope or a near syncopal episode, recent trauma or falls, bowel incontinence, bladder incontinence, bowel retention, bladder retention, or any other complaints at this time. Severity: mild Relieving factors: none Exacerbating factors: none Associated symptoms: denies other symptoms Treatments prior to arrival: none Related Data Home Medications Medication Instructions Recorded Confirmed albuterol sulfate 90 mcg/actuation 0 mcg inhalation 07/03/21 10/02/21 aerosol inhaler aspirin 81 mg tablet,delayed 81 mg PO DAILY 07/03/21 10/02/21 release atorvastatin 80 mg tablet 80 mg PO DAILY 07/03/21 10/02/21 bupropion HCl 100 mg tablet,12 hr 100 mg PO BID 07/03/21 10/02/21 sustained-release cilostazol 100 mg tablet 100 mg PO BID 07/03/21 10/02/21 clonidine HCl 0.3 mg tablet 0.3 mg PO BID 07/03/21 10/02/21 doxazosin 8 mg tablet 8 mg PO DAILY 07/03/21 10/02/21 lisinopril 40 mg tablet 40 mg PO DAILY 07/03/21 10/02/21 metoprolol succinate 100 mg mg PO 07/03/21 10/02/21 tablet,extended release 24 hr nifedipine 30 mg tablet,extended 30 mg PO DAILY 07/03/21 10/02/21 release Previous Rx's Medication Instructions Recorded albuterol sulfate 2.5 mg/3 mL 2.5 mg (3 mL) inhalation Q6H PRN 07/28/21 (0.083 %) solution for nebulization shortness of breath or wheezing 30 days #180 mL fluticasone fur. 100 mcg-umeclid 1 ea PO DAILY #60 ea 07/28/22 62.5 mcg-vilant 25 mcg inhalat.powder (Trelegy Ellipta) meclizine 12.5 mg tablet 12.5 mg PO TID PRN dizziness #10 08/29/23 tabs Allergies Allergy/AdvReac Type Severity Reaction Status Date / Time No Known Allergies Allergy Verified 08/29/23 11:54 Review of Systems Constitutional: Constitutional: Reports no additional constitutional complaints, Denies chills, Denies fever(s) and Denies night sweats Eyes: Eyes: Reports no additional eye complaints, Denies blurry vision, Denies change in vision, Denies diplopia, Denies eye discharge, Denies loss of vision and Denies eye pain ENT: Reports dizziness (with head movement) Cardiovascular: Cardiovascular: Reports no additional cardiovascular complaints, Denies chest pain, Denies lightheadedness, Denies Loss of Consciousness and Denies dyspnea Respiratory: Respiratory: Reports no additional respiratory complaints and Denies dyspnea Gastrointestinal: Gastrointestinal: Reports no additional gastrointestinal complaints, Denies abdominal pain, Denies melena, Denies hematochezia, Denies change in bowel habits and Denies change in stool character Genitourinary: Genitourinary: Reports no additional male genitourinary complaints, Denies hematuria, Denies oliguria, Denies difficulty urinating, Denies dysuria, Denies urinary frequency, Denies urinary hesitancy, Denies urinary incontinence and Denies urinary urgency Musculoskeletal: Musculoskeletal: Reports no additional musculoskeletal complaints, Denies numbness and Denies tingling Neurologic: Reports dizziness (with head movement), Denies loss of vision, Denies numbness and Denies tingling Psychiatric: Psychiatric: Reports no additional psychiatric complaints Endocrine: Endocrine: Reports no additional endocrine complaints Hematologic/Lymphatic: Hematologic/Lymphatic: Reports no additional hematologic/lymphatic complaints Allergic/Immunologic: Allergic/Immunologic: Reports no additional allergic/immunologic complaints PMFSH Past Medical History Attestation statement: The following information was validated with the patient. Source: old records reviewed and nursing notes reviewed Onset Date is defined in the Problem List Problems that require an onset date and time if occurred within 24 hrs of arrival to the ED Aortic Dissection and Rupture; Neurologic impairment; Cardiopulmonary Arrest; Endotracheal Intubation; Insertion or Replacement of Mechanical Circulatory Assist Device Medical History COPD (chronic obstructive pulmonary disease) Asthma-COPD overlap syndrome Hypertension Chronic hepatitis C virus genotype 1a infection (~1999) Personal history of nicotine dependence Tubular adenoma of colon (~2012) Surgical History History of hernia repair History of lumbar surgery (~1994) History of liver biopsy (~2000) History of colonoscopy History of cataract surgery (~2006) History of transurethral resection of prostate (~2009) Social History Social History Patient Tobacco Use Status: Former Tobacco user Quit Date: 2014 Tobacco use type: Cigarette Years Smoked: 55 - onset 14, 1/2ppd x 56yrs, 25+PYH, quit 2014 Advance Directives: No Advance Directives Information Provided: No Physical Exam ED Vital Signs: Vital Signs - 24 hr 08/29/23 11:54 08/29/23 16:50 Temperature 97.8 F Pulse Rate 63 71 Respiratory Rate 18 16 Blood Pressure 162/87 H 195/87 H Pulse Oximetry 97 96 Oxygen Delivery Method Room Air Room Air BMI result Body Mass Index 23.6 Const General: cooperative, no acute distress, alert and awake Nutritional Appearance: well nourished Orientation/consciousness: patient oriented x3 Limitations: no limitations HENMT Head: Yes normal to inspection and Yes atraumatic Ears: hearing grossly normal bilaterally and external ears normal General nose exam: Normal external nose present, no nasal discharge noted and no epistaxis Face and sinus: Yes normal facial exam, No abrasion and No laceration Mouth: Normal oral and palatal mucosa present, no drooling and no muffled voice Eyes General: appearance normal, both eyes and all related structures Periorbital: periorbital findings normal Eyelids: Yes eyelids normal Conjunctivae: conjunctivae normal Pupils: Equal, round and reactive pupils present EOM: EOMs intact bilaterally Neck Neck: Yes normal visual inspection, Yes full ROM and Yes no lymphadenopathy Chest Chest palpation & inspection: normal inspection of the chest Resp Effort & Inspection: normal respiratory effort and able to speak in complete sentences GI Inspection: Yes normal to inspection Neuro General: patient oriented x3 and moves all extremities Cranial nerves: Yes Equal, round and reactive pupils present Cognition (Neuro): normal cognition Motor exam (neuro): 5/5 motor strength present throughout Sensory Exam: Normal double simultaneous stimulation for sensation Coordination: eirdqb-wo-zian test normal Extrem General: Yes normal to inspection, Yes full ROM and Yes capillary refill normal Psych Appearance: grossly normal Mental Status: mental status grossly normal Affect: normal affect Attitude: cooperative Thought process: Normal thought process present Thought content: Normal thought content present Insight: Good insight present (Psych) Course Course Course Narrative: RME:?78 yo male hx copd, asthma, pulmonary nodule here w/ son for eval of elevated bp x2 days. feels lightheaded and weak. +foggy vision intermittent. states he has not been checking bp at home because machine is broken, feels like it has been high. taking bp meds as prescribed. has not follow up with pcp regarding this. no fever, chills, headache. aox3, exam nonfocal. ambulating w/ steady w/ cane. slightly elevated bp in triage. plan for labs Full HPI, ROS and PE to be performed by the primary ED provider. Medications Administered Discontinued Medications Generic Name Dose Route Start Last Admin Trade Name Freq PRN Reason Stop Dose Admin Iohexol 100 ml 08/29/23 17:15 08/29/23 17:15 Iohexol 350 Mg/Ml 100 Ml Infus..Btl IV 08/29/23 17:16 70 ml ONCE ONE Administration Meclizine HCl 25 mg 08/29/23 16:49 08/29/23 17:36 Meclizine Hcl 25 Mg Tablet PO 08/29/23 16:50 25 mg ONCE ONE Administration Medical Decision Making Medical Decision Making [facility] Narrative: Patient is a 78 year old assigned male at with a history of HTN presenting to the emergency department today with dizziness upon head movement. Patient's physical exam was unremarkable. Patient's blood work was unremarkable. Patient's EKG was unremarkable. Patient's CTA head/neck showed no acute process. I explained my physical exam findings as well as all test results to the patient. I answered all questions asked by the patient. Patient received Meclazine which he stated helped his symptoms significantly. I stressed the importance of the patient taking his medication as prescribed. I stressed the importance of the patient following up with his primary care provider. I stressed the importance of the patient returning to the emergency department immediately if his symptoms were to worsen or if he were to develop any dizziness, shortness of breath, difficulty breathing, chest pain, blurry vision, loss of vision, nausea, vomiting, abdominal pain, fever, chills, back pain, or any other complaints. Patient verbalized agreement and understanding with this treatment plan and discharge. Differential Diagnosis Differential Diagnoses: The differential diagnosis associated with the presentation includes BPPV Cerebellar stroke Dizziness HTN Admission/Observation Consideration of admission/observation: Escalation of care including admission/observation considered Patient would have been admitted to the hospital had his work up had any findings where hospital admission was appropriate and his clinical presentation warranted hospital admission. Lab Data MDM Lab Attestation statement: I reviewed the patient's lab results. My interpretation of these studies and their corresponding values is that they are grossly normal. 08/29/23 12:17 08/29/23 12:17 Labs: Lab Results 08/29/23 Range/Units 12:17 WBC 5.9 (4.8-10.8) X10*3/uL RBC 4.57 L (4.60-5.80) X10*6/uL Hgb 13.9 L (14.0-18.0) g/dl Hct 40.2 L (42.0-52.0) % MCV 88.0 (80.0-98.0) fL MCH 30.4 (27.0-33.0) pg MCHC 34.6 (31.0-36.0) g/dl RDW 12.4 (11.0-16.0) % Plt Count 169 (160-400) X10*3/uL MPV 10.0 (9.4-12.4) fL Immature Gran % (Auto) 0.3 (0.0-0.4) % Neut % (Auto) 64.4 (45-73) % Lymph % (Auto) 25.3 (20-40) % Winston % (Auto) 7.8 (2-11) % Eos % (Auto) 1.7 (0-4) % Baso % (Auto) 0.5 (0-2) % Lymph # (Auto) 1.5 (1.2-4.9) X10*3/uL Winston # (Auto) 0.5 (0.1-1.2) X10*3/uL Eos # (Auto) 0.1 (0.0-0.4) X10*3/uL Baso # (Auto) 0.0 (0.0-0.2) X10*3/uL Abs Immat Gran (auto) 0.02 (0.00-0.03) X10*3/uL Absolute Neuts (auto) 3.8 (2.0-8.3) x10*3/uL Absolute Nucleated RBC 0.000 (0.0-0.012) X10*3/uL Nucleated RBC % (auto) 0.0 (0.0-0.2) /100WBC Sodium 137 (135-145) mmol/L Potassium 3.9 (3.3-5.1) mmol/L Chloride 105 (96-108) mmol/L Carbon Dioxide 25 (22-29) mmol/L Anion Gap 11 L (12-20) BUN 16 (9-16) mg/dL Creatinine 0.96 (0.5-1.4) mg/dL Estim Creat Clear Calc 60.3 Estimated GFR > 60 Random Glucose 112 (60-115) mg/dL Calcium 8.9 D (8.4-10.2) mg/dL Magnesium 2.1 (1.6-2.6) mg/dL Lipase 7 L (8-78) U/L Independent Interpretation I performed an independent interpretation of an: EKG and CT Scan Interpretation: My interpretation is in agreement with the radiologist's impression of this imaging study. EXAMINATION: CT ANGIOGRAM HEAD CT ANGIOGRAM NECK CLINICAL INFORMATION: Dizziness. Unsteadiness. Cerebellar symptoms. COMPARISON: CT head from 03/30/2014. TECHNIQUE: Initial noncontrast screening representative imaging of the head and neck was performed. Noncontrast head CT was also performed. Test bolus sequences followed by intravenous administration 70 mL of Omnipaque 350. Helical imaging was performed in the axial plane from the aortic arch to the skull vertex. Delayed postcontrast imaging of the head was also performed. The data was processed at the lab technologist's workstation for generation of MIP sequences. Angled MIPs and volume rendered reformatted images were also generated at an offline 3D workstation. Stenoses are assessed in accordance with NASCET criteria unless otherwise indicated. This CT examination was performed using dose optimization techniques as appropriate, variously including the following: *Automated exposure control. *Adjustment of mA and/or kV according to patient size (this includes techniques or standardized protocols for targeted exams where dose is matched to indication/reason for exam; i.e. extremities or head). *Use of iterative reconstruction technique. DLP: 2246 mGy-cm FINDINGS: CT Head: There is no evidence of acute intracranial hemorrhage or edematous territorial infarction. [place]-white matter differentiation is preserved. A few foci of hypoattenuation in the periventricular and deep white matter are consistent with mild microangiopathy. Persistent cavum septum pellucidum et vergae with cyst formation, measuring up to 1.7 cm in diameter. Otherwise, the ventricles are normal in morphology and size. No evidence for obstructive hydrocephalus. No abnormal mass effect or midline shift. No extra-axial fluid collections. No pathologic intra-axial enhancement or regional oligemia. No acute soft tissue or osseous abnormalities. Chronic depressions of the right greater than left lamina papyracea. Mild mucosal thickening of the paranasal sinuses. The mastoid air cells and middle ear cavities are clear. Multifocal odontogenic enamel erosions and periapical lucencies. Bilateral lens extractions. CT Neck: The thyroid gland and remaining cervical soft tissues are within normal limits. Straightening of the normal cervical lordosis. Moderate degenerative anterolisthesis of C7 on T1. Advanced degenerative disc disease from C3-C7. There appears to be at least mild spinal canal stenosis at C6-C7. Facet and uncovertebral joint arthropathy leads to osseous encroachment on the neural foramina from C4-C7. CT Upper Chest: Mild to moderate centrilobular emphysema of the visualized upper lungs. Biapical pleural scarring. Neck CTA: Aortic Arch: Normal contour and caliber with moderate calcific atherosclerotic disease. Classic 3 vessel branching pattern of the aortic arch. Great Vessel Origins: No significant stenosis of the branch origins. Right Common Carotid Artery: No focal stenosis or occlusion. Cervical Right Internal Carotid Artery: Calcific atherosclerotic disease of the carotid bulb and proximal internal carotid artery causing less than 50% stenosis. Left Common Carotid Artery: No focal stenosis or occlusion. Cervical Left Internal Carotid Artery: Calcific atherosclerotic disease of the carotid bulb and proximal internal carotid artery causing less than 50% stenosis. Cervical Right Vertebral Artery: No focal stenosis or occlusion. Cervical Left Vertebral Artery: Mildly dominant. No focal stenosis or occlusion. Brain CTA: Intracranial Internal Carotid Arteries: Calcific atherosclerotic disease of the intracranial internal carotid arteries without occlusion or flow-limiting stenosis. Right Anterior Cerebral Artery: Normal A1 segment. Normal opacification of the distal BLAYNE segments. Left Anterior Cerebral Artery: Normal A1 segment. Normal opacification of the distal BLAYNE segments. Anterior Communicating Artery: Normal. Right Middle Cerebral Artery: Normal M1 segment of the MCA without focal stenosis or occlusion. Normal arborization of the distal segments. Left Middle Cerebral Artery: Normal M1 segment of the MCA without focal stenosis or occlusion. Normal arborization of the distal segments. Right Vertebral Artery: Atherosclerotic disease of the V4 segment without flow-limiting stenosis. Normal opacification of the proximal segments of the posterior inferior cerebellar artery. Left Vertebral Artery: Atherosclerotic disease of the V4 segment without flow-limiting stenosis. Normal opacification of the proximal segments of the posterior inferior cerebellar artery. Basilar Artery: Normal without focal stenosis or occlusion. Normal appearance of the proximal superior cerebellar arteries. Right Posterior Cerebral Artery: Normal P1 segment. Normal opacification of the distal FOREIGN EXCHANGE STUDENT COORDINATOR segments. Left Posterior Cerebral Artery: Normal P1 segment. Normal opacification of the distal FOREIGN EXCHANGE STUDENT COORDINATOR segments. Normal opacification of the superior sagittal, straight, transverse, and sigmoid sinuses. CT/CT angio head neck IMPRESSION: 1. No evidence of acute intracranial hemorrhage or edematous territorial infarction. Mild underlying microangiopathy. 2. CTA of the head and neck without proximal occlusion or flow-limiting stenosis. 3. Moderate multilevel degenerative spondyloarthropathy of the cervical spine. There appears to be at least mild spinal canal stenosis at C6-C7. 4. Emphysema. Dictated By: Jason Simmons DO Signed By: Electronically signed by Jason Simmons DO 08/29/23 1808 Vent. Rate: 059 BPM Atrial Rate: 059 BPM P-R Int: 156 ms QRS Dur: 072 ms QT Int: 394 ms P-R-T Axes: 055 010 038 degrees QTc Int: 390 ms Sinus bradycardia Otherwise normal ECG When compared with ECG of 17-MAY-2023 15:39, No significant change was found Electronically Signed By:RIGOBERTO MEDINA Dictated By: Rigoberto Medina MD Signed By: Electronically signed by Rigoberto Medina MD 08/29/23 1300 Radiology Impression Discussion of test interpretation with radiology: I have reviewed the radiologist's reading. Chronic Conditions Patient?s care impacted by: Hypertension Critical Care Time Critical Care Time Critical Care Time: Yes Total Critical Care Time: 35 Attestation: I spent 35 minutes of Critical Care Time with this patient. This does not include time spent on separately reported billable procedures. Discharge Plan Discharge Clinical Impression: Benign paroxysmal positional vertigo Patient Disposition: Home, Self-Care Instructions: Benign Paroxysmal Positional Vertigo (ED) Additional Instructions: Follow up with your primary care provider and a neurologist. Return to the emergency department immediately if your symptoms worsen or if you develop any dizziness, shortness of breath, difficulty breathing, chest pain, blurry vision, loss of vision, nausea, vomiting, abdominal pain, fever, chills, back pain, or any other complaints. Christian un seguimiento con coats proveedor de atenci?n primaria y un neur?logo. Regrese al departamento de emergencias inmediatamente si bijan s?ntomas empeoran o si presenta mareos, dificultad para respirar, dificultad para respirar, dolor en el pecho, visi?n borrosa, p?rdida de la visi?n, n?useas, v?mitos, dolor abdominal, fiebre, escalofr?os, dolor de espalda o cualquier otras quejas. Prescriptions: New meclizine 12.5 mg tablet 12.5 mg PO TID PRN (Reason: dizziness) Qty: 10 0RF No Action Trelegy Ellipta 100-62.5-25 mcg blister with device 1 ea PO DAILY Qty: 60 11RF atorvastatin 80 mg tablet 80 mg PO DAILY nifedipine 30 mg tablet extended release 30 mg PO DAILY clonidine HCl 0.3 mg tablet 0.3 mg PO BID cilostazol 100 mg tablet 100 mg PO BID lisinopril 40 mg tablet 40 mg PO DAILY doxazosin 8 mg tablet 8 mg PO DAILY bupropion HCl 100 mg tablet sustained-release 12 hr 100 mg PO BID aspirin 81 mg tablet,delayed release (DR/EC) 81 mg PO DAILY metoprolol succinate 100 mg tablet extended release 24 hr PO albuterol sulfate 90 mcg/actuation HFA aerosol inhaler 0 mcg inhalation albuterol sulfate 2.5 mg /3 mL (0.083 %) solution for nebulization 2.5 mg inhalation Q6H PRN (Reason: shortness of breath or wheezing) 30 Days Qty: 180 11RF Ref[place]: [facility] [place] [facility] [place] Group] (Call to establish and follow up with a neurologist. Llamar para establecer y joaquin seguimiento con un neur?logo.) Tresa Tran MD [Primary Care Provider] - Interventions: ED Discharge Assessment Last Done: 08/29/23 18:32 Print Language: Icelandic
--- NOTE | 2023-08-29 11:59 | ECG_ITS ---
Test Reason : high bp Blood Pressure : / mmHG Vent. Rate : 059 BPM Atrial Rate : 059 BPM P-R Int : 156 ms QRS Dur : 072 ms QT Int : 394 ms P-R-T Axes : 055 010 038 degrees QTc Int : 390 ms Sinus bradycardia Otherwise normal ECG When compared with ECG of 17-MAY-2023 15:39, No significant change was found Referred By: Sue Monk Electronically Signed By:JOSE CARLOS MEDINA
[2023-08-29 12:22] LABS: MANUAL DIFF FLAG NO
[2023-08-29 12:23] LABS: Basophils Percent Auto 0.5 % (0-2); Eosinophils Absolute Auto 0.1 X10*3/uL (0.0-0.4); Eosinophils Percent Auto 1.7 % (0-4); Hematocrit 40.2 % (42.0-52.0); Hemoglobin 13.9 g/dl (14.0-18.0); Imm Gran Abs Auto 0.02 X10*3/uL (0.00-0.03); Imm Gran Pct Auto 0.3 % (0.0-0.4); Lymphocytes Absolute Auto 1.5 X10*3/uL (1.2-4.9); Lymphocytes Percent Auto 25.3 % (20-40); Mean Corpuscular HGB Conc 34.6 g/dl (31.0-36.0); Mean Corpuscular Hemoglobin 30.4 pg (27.0-33.0); Monocytes Absolute Auto 0.5 X10*3/uL (0.1-1.2); Monocytes Percent Auto 7.8 % (2-11); Neutrophils Absolute Auto 3.8 x10*3/uL (2.0-8.3); Neutrophils Percent Auto 64.4 % (45-73); Platelet Count 169 X10*3/uL (160-400); Red Blood Count 4.57 X10*6/uL (4.60-5.80); Red Cell Distribution Width 12.4 % (11.0-16.0); White Blood Count 5.9 X10*3/uL (4.8-10.8)
[2023-08-29 12:35] LABS: Anion Gap 11 (12-20); Blood Urea Nitrogen 16 mg/dL (9-16); Calcium 8.9 mg/dL (8.4-10.2); Carbon Dioxide 25 mmol/L (22-29); Chloride 105 mmol/L (96-108); Creatinine Clr Calc Pharmacy 60.3; Estimated Glomerular Filt Rate > 60; Glucose Random 112 mg/dL (60-115); Lipase 7 U/L (8-78); Magnesium 2.1 mg/dL (1.6-2.6); Potassium 3.9 mmol/L (3.3-5.1); Sodium 137 mmol/L (135-145)
[2023-08-29 16:50] VITALS: BP 195/87; PULSE 71; RESP 16; O2SAT 96
[2023-08-29] MEDS: iohexoL 350 MG/ML 100 ML INFUS..BTL IV (17:15)
[2023-08-29] MEDS: Meclizine HCl 25 MG TABLET PO (17:36)
== END 2023-08-29 18:33 | disposition home or self-care (01) ==
PROVIDERS: Physician Assistant Medical; Emergency Provider Emergency Medicine; PCP Family Medicine
DX: H81.13 Benign paroxysmal vertigo, bilateral (principal); R00.1 Bradycardia, unspecified; I10 Essential (primary) hypertension; Z79.899 Other long term (current) drug therapy
CPT/HCPCS: 36415; 70496; 70498; 80048; 83690; 83735; 85025; 93005; 99284; Q9967

== ENCOUNTER → 2023-08-29 11:59 | Outpatient (BNV) | payer MEDICARE, SELFPAY | PROVIDERS: PCP Family Medicine; Visit Provider Internal Medicine | DX: R00.1 Bradycardia, unspecified (principal) | CPT/HCPCS: 93010 ==

== ENCOUNTER 2024-10-30 15:05 | Outpatient (REF) | payer MEDICARE, MEDICAID, SELFPAY ==
[2024-10-30 17:14] LABS: Alanine Aminotransferase 29 U/L (0-40); Albumin Level 3.9 g/dL (3.5-5.0); Alkaline Phosphatase 123 U/L (39-117); Anion Gap 10 (12-20); Aspartate Amino Transferase 24 U/L (5-37); Bilirubin Total 0.4 mg/dL (0.0-1.0); Blood Urea Nitrogen 16 mg/dL (9-16); Calcium 9.1 mg/dL (8.4-10.2); Carbon Dioxide 29 mmol/L (22-29); Chloride 109 mmol/L (96-108); Cholesterol 140 mg/dL (<200); Estimated Glomerular Filt Rate > 60; Glucose Random 90 mg/dL (60-115); HDL Cholesterol 40 mg/dL (>40); LDL Cholesterol Calculated 83 mg/dL (<100); Potassium 4.4 mmol/L (3.3-5.1); Sodium 144 mmol/L (135-145); Total Protein 7.3 g/dL (6.5-8.0); Triglycerides 86 mg/dL (<150)
[2024-10-30 17:47] LABS: Reflex LDLD? No
[2024-11-06 17:54] LABS: Aldosterone/Renin Ratio 13.6 Ratio (0.9-28.9); Plasma Renin Activity 1.47 ng/mL/h (0.25-5.82)
== END 2024-10-30 15:06 | disposition home or self-care (01) ==
LOC: HO.HHCL 15:05
PROVIDERS: Visit Provider Family Medicine
DX: E78.5 Hyperlipidemia, unspecified (principal); I10 Essential (primary) hypertension
CPT/HCPCS: 36415; 80053; 80061; 82088

== ENCOUNTER 2025-01-24 13:15 | Outpatient (REF) | payer MEDICARE, MEDICAID, SELFPAY ==
--- OUTSIDE RECORDS SUMMARY | 2025-01-24 15:24 | XMS_ITS | Patient Health Record ---
Author Organization [facility] Address [address] [place] [address] Care Team Providers Care Computer Systems Administrator Name Role Phone Chelsea LUZ, Tresa Primary Care Provider Maycol Ayers Unavailable [phone] Allergies No Known Allergies Reason For Referral No Information Medications Medication SIG (Take, Route, Frequency, Duration) Notes Start Date End Date Status buPROPion HCl ER (SR) 100 MG TOME ABNER TABLETA DOS VECES AL D A Oral for 90 Active Meclizine HCl 12.5 MG TOME ABNER TABLETA T RES VECES AL D A CUANDO SEA NECESARIO FOR DIZZINESS Oral for 3 Active Aspir-81 81mg Active Vitamin D3 Active NIFEdipine ER 30mg A ctive Cilostazol 50mg Acti ve Metoprolol Succinate ER 100mg Active Centrum Adult Active Doxazosin Mesylate 8mg Active cloNIDine HCl 0.3mg Active Atorvastatin Calcium 80mg Active Lisinopril 40mg Acti ve Social History Tobacco Use: Social History Observation Description Date Details (start date - stop date) Former Smoker NA - NA Tobacco Use/Smoking Question Answer Notes Patient is a former smoker How long has it been since you last smoked? 5-10 years Section Notes: Smokes marijauna and occ. ci garettes; no alcohol Smokes marijauna. Stopped smoking cigarettes in 2023; no alcohol Problems Problem Type SNOMED Code ICD Code Onset Dates Problem Status W/U Status Risk Notes Problem 344021950 Colon cancer screening (Z12.11) Active confirmed Problem 613347692124037 Preprocedural examination (Z01.818) Active confirmed Problem 66278433052201 History of hepatitis C (Z86.19) Active confirmed Problem [id number] Generalized abdominal discomfort (R10.84) Active confirmed Plan Of Treatment Future Test Test Name Order Date COLONOSCOPY 02/08/2013 Insurance Providers Payer Name Payer Address Payer Phone Subscriber Number Group Number Insured Name Patient Relationship to Insured Coverage Start Date Coverage End Date [employer] [address] ORALIA ALVAREZ [id number] SHAHRAM MYERS Self - patient is the insured [facility] [address] [place] [address] [id number] SHAHRAM MYERS Self - patient is the insured MEDICARE OF [place] [address] [place] [address] [id number] SHAHRAM MYERS Self - patient is the insured Medical (General) History Medical History History ICD Code Screening colonoscopy 09-11-2007-2 tubula r adenomas removed Chronic hepatis C-Rx'd with 4 mos of PEG-Intron and Ribavirin in 2006 but without any improvement and therefore stopped; Genotype 1; liver bx in 06/2001 with Gr 3/4 and Stage II/IV. Successfully treated by Dr. Dukes with nondetectable Hepatitis C viral load in 2018 Hypertension Denies [place],DM,CVA,Lung disease,renal dise ase PVD with stents in the LE's--describes m ullarryle procedures Negative screening colonoscopy in 3 Hyperlipidemia Surgical History Surgery Date(Month/Year) Hernia surgery Back surgery for disk disease. Stents in lower extremities
[2025-01-25 08:02] LABS: ~HepC Num1 14.81 S/CO (0.00-0.79); ~Hepatitis C Antibody Reactive (Nonreactive)
[2025-01-27 10:49] LABS: HCV Log PCR <1.18 NOT DETECTED Log IU/mL (NOT DETECTED); HepC Viral Load <15 NOT DETECTED IU/mL (NOT DETECTED)
== END 2025-01-24 13:16 | disposition home or self-care (01) ==
LOC: HO.HHCL 13:15
PROVIDERS: Visit Provider Family Medicine
DX: F11.20 Opioid dependence, uncomplicated (principal)
CPT/HCPCS: 36415; 86803; 87522

== ENCOUNTER 2025-08-06 11:07 | Outpatient (REF) | payer MEDICARE, SELFPAY ==
--- NOTE | ~2025-08-06 | XR_ITS ---
EXAMINATION: XR FOOT 3 OR MORE VIEWS LEFT, XR ANKLE 3 OR MORE VIEWS LEFT HISTORY: left posterior ankle and heel pain, PAD COMPARISON: There are no prior studies available for comparison. FINDINGS: Six views of the left foot and ankle are submitted. Osseous mineralization is normal. There is no fracture or dislocation. The joint spaces are preserved. The soft tissues are unremarkable. XR/XR ankle LT min 3V IMPRESSION: Unremarkable examination of the left foot and ankle. Electronically signed by: Maycol Smith MD 08/06/2025 01:19 PM DEVI
--- NOTE | ~2025-08-06 | XR_ITS ---
EXAMINATION: XR FOOT 3 OR MORE VIEWS LEFT, XR ANKLE 3 OR MORE VIEWS LEFT HISTORY: left posterior ankle and heel pain, PAD COMPARISON: There are no prior studies available for comparison. FINDINGS: Six views of the left foot and ankle are submitted. Osseous mineralization is normal. There is no fracture or dislocation. The joint spaces are preserved. The soft tissues are unremarkable. XR/XR foot LT min 3V IMPRESSION: Unremarkable examination of the left foot and ankle. Electronically signed by: Maycol Smith MD 08/06/2025 01:19 PM DEVI
--- OUTSIDE RECORDS SUMMARY | 2025-08-06 10:30 | XMS_ITS | Encounter Summary ---
Author Organization [employer] Address [address] [place] [address] Care Team Providers Care Job Developer Name Role Phone Tresa Tran MD Primary Care Provider [phone] Js Willett PharmD Unavailable [phone] Reason for Visit * Reason Comments DM Encounter Details Date Type Department Care Team (Late st Contact Info) Description 08/06/2025 10:30 AM EST Office Visit [facility] [address] [place], [place] [phone] Tresa Tran MD [address] [place], [place] [phone] Primary hypertension (Primary Dx); Peripheral arterial occlusive disease; Dyslipidemia; Bilateral carotid artery stenosis; Cognitive impairment; Acute left ankle pain; Pain of left heel; Encounter for immunization; Impaired fasting glucose Social History Tobacco Use Types Packs/Day Years Used Date Smoking Tobacco: Former Passive Smoke Exposure: Past Smokeless Tobacco: Never Tobacco Cessation:Counseling Given: Not Answered Comments:Mr. Boston Barron says he was able to quit cigarettes on his own. Alcohol Use Standard Drinks/Week Comments Never 0 (1 standard drink = 0.6 oz pur e alcohol) Depression Answer Date Recorded Patient Health Questionnaire-9 Score 2 06/13/2025 Patient Health Questionnaire-9 Score 2 06/13/2025 Last PHQ-9: Questionnaire Data Not on file 1 Housing Stability Answer Date Recorded What is your housing situation today? I have demetria abbott 08/13/[address] you li ve. Do you have problems with any of the following? None of the above 08/13/2024 Food Insecurity Answer Date Recorded Within the past 12 months, y ou worried that your food would run out before you got money to buy more: Never True 08/13/2024 Within the past 12 months,th e food you bought just didn't last and you didn't have enough money to get more: Never True Transportation Answer Date Recorded In the past 12 months, has l ack of transportation kept you from medical appts, meetings, work or from getting things needed for daily living? No 08/13/2024 Utilities Answer Date Recorded In the past 12 months, has t he electric, gas, oil or water company threatened to shut off services in your home? No 08/13/2024 Depression Answer Date Recorded Patient Health Questionnaire-2 Score 2 06/13/2025 Internet Access Answer Date Recorded Internet Access Q1 No 06/13/2025 Internet Access Q2 Not on file 06/13/2025 Sex and Gender Information Value Date Recorded Sex Assigned at Male 06/14/2022 10:16 AM EDT Legal Sex Male 10:16 AM EDT Gender Identity Male 06/14/2022 10:16 AM EDT Sexual Orientation Choose not to disclose 2021 10:16 AM EDT documented as of this encounter Last Filed Vital Signs Vital Sign Reading Time Taken Comments Blood Pressure 122/74 08/06/2025 10:09 AM EST Pulse 80 08/06/2025 10:09 AM EST Temperature 35.9 C (96.7 F) 08/06/2025 10:09 AM EST Respiratory Rate 18 08/06/2025 10:09 AM EST Oxygen Saturation 98% 08/06/2025 10:09 AM EST Inhaled Oxygen Concentration - - Weight 73.3 kg (161 lb 9.6 oz) 08/06/2025 10:09 AM EST Height 172.7 cm (5' 8 ) 08/06/2025 10:09 AM EST Body Mass Index 24.57 08/06/2025 10:09 AM EST documented in this encounter Plan of Treatment Upcoming Encounters Date Type Department Care Team (Late st Contact Info) Description 09/05/2025 2:30 PM EST Office Visit [facility] [address] [place] [address] Valencia Jackman MD [address] [place] [address] Scheduled Orders Name Type Priority Associated Diagnoses Orde r Schedule XR Ankle 3+ Views Left Imaging Routine Acute left ankle pain Pain of left heel Expected: 08/06/2025, Expires: 08/06/2026 XR Foot 3+ Views Left Imaging Routine Acute left ankle pain Pain of left heel Expected: 08/06/2025, Expires: 08/06/2026 Hemoglobin A1c Lab Routine Impaired fasting glucose Expected: 08/06/2025 (Approximate), Expires: 08/06/2026 Comprehensive Metabolic Panel Lab Routine Primary hypertension Expected: 08/06/2025 (Approximate), Expires: 08/06/2026 Lipid Panel with Reflex to Direct LDL Lab Routine Dyslipidemia Expected: 08/06/2025 (Approximate), Expires: 08/06/2026 Albumin, Random Urine W/Creatinine Lab Routine Primary hypertension Expected: 08/06/2025 (Approximate), Expires: 08/06/2026 documented as of this encounter Goals Goal Patient Goal Type Associated Problems Recent Progress Patient-Stated? Author Blood Pressure < 150/90 Blood Pressure 122/74(2024 10:09 AM EST) No Js Willett, DevenD Note: Per JNC-8 Age greater than 60 y/o, no history of DM or CKD. Keep your medical appointments Lifestyle On track( 025 10:48 AM EDT) No Mukesh Steen, MIKI documented as of this encounter Visit Diagnoses Diagnosis Primary hypertension- Primary Unspecified essential hypertension Peripheral arterial occlusive disease Unspecified peripheral vascular disease Dyslipidemia Other and unspecified hyperlipidemia Bilateral carotid artery stenosis Occlusion and stenosis of carotid artery without mention of cerebral infarction Cognitive impairment Unspecified persistent mental disorders due to conditions classified elsewhere Acute left ankle pain Pain of left heel Encounter for immunization Impaired fasting glucose documented in this encounter Additional Health Concerns Assessment Noted Time PHQ-9 Depression Total Score: 2 06/13/20 25 2:25 PM EDT documented as of this encounter Care Teams Job Developer Relationship Specialty Start Date End Date Tresa Tran MD [address] [place] [id number] PCP - General Family Medicine 1/1/19 Js Willett, PharmD [address] [place] [address] Pharmacist Internal Medicine 11/01/22 documented as of this encounter
--- OUTSIDE RECORDS SUMMARY | 2025-08-06 12:28 | XMS_ITS | Encounter Summary ---
Author Organization [employer] Address [address] [place] [address] Care Team Providers Care Source Inspector Name Role Phone Tresa Tran MD Primary Care Provider Js Willett PharmD Unavailable [phone] Encounter Details Date Type Department Care Team (Latest Contact Info) Description 08/05/2025 Travel Social History Tobacco Use Types Packs/Day Years Used Date Smoking Tobacco: Former Passive Smoke Exposure: Past Smokeless Tobacco: Never Comments:Mr. Boston Barron sa ys he was able to quit cigarettes on [...] AM EDT documented as of this encounter Plan of Treatment Upcoming Encounters Date Type Department Care Team (Late st Contact Info) Description 09/05/2025 2:30 PM EST Office Visit [facility] [address] [place] [phone] Valencia Jackman MD [address] [place] [address] [phone] documented as of this encounter Goals Goal Patient Goal Type Associated Problems Recent Progress Patient-Stated? Author Blood Pressure < 150/90 Blood Pressure 122/74(2024 10:09 AM EST) No Js Willett, Wil Note: Per JNC-8 Age greater than 60 y/o, no history of DM or CKD. Keep your medical appointments Lifestyle On track( 025 10:48 AM EDT) No Mukesh Steen, MIKI documented as of this encounter Visit Diagnoses Not on filedocumented in this encounter Additional Health Concerns Assessment Noted Time PHQ-9 Depression Total Score: 2 06/13/20 25 2:25 PM EDT documented as of this encounter Care Teams Source Inspector Relationship Specialty Start Date End Date Tresa Tran MD [address] [place] [phone] PCP - General Family Medicine 08/15/18 Js Willett, PharmD [address] [place] [address] [phone] Pharmacist Internal Medicine 11/01/22 documented as of this encounter
--- OUTSIDE RECORDS SUMMARY | 2025-08-06 12:28 | XMS_ITS | Encounter Summary ---
Author Organization [employer] Address [address] [place] [address] Care Team Providers Care Vaccine Customer Representative Name Role Phone Tresa Tran MD Primary Care Provider [phone] Js Willett PharmD Unavailable [phone] Encounter Details Date Type Department Care Team (Latest Contact Info) Description 08/06/2025 Travel Social History Tobacco Use Types Packs/Day [...] Description 09/05/2025 2:30 PM EST Office Visit [facility] [address] [place] [phone] Valencia Jackman MD [address] [place] [address] [phone] documented as of this encounter Goals Goal Patient Goal Type Associated Problems Recent Progress Patient-Stated? Author Blood Pressure < 150/90 Blood Pressure 122/74(2024 10:09 AM EST) No Js Wlilett, Wil Note: Per JNC-8 Age greater than [...] documented as of this encounter Care Teams Vaccine Customer Representative Relationship Specialty Start Date End Date Tresa Tran MD [address] [place] [phone] PCP - General Family Medicine 08/15/18 Js Willett, PharmD [address] [place] [address] [phone] Pharmacist Internal Medicine 11/01/22 documented as of this encounter
--- OUTSIDE RECORDS SUMMARY | 2025-08-06 12:28 | XMS_ITS | Encounter Summary ---
Author Organization [employer] Address [address] [place] [address] Care Team Providers Care Facilities Director Name Role Phone Tresa Tran MD Primary Care Provider [phone] Js Willett PharmD Unavailable [phone] Reason for Visit * Reason Comments Med Refill Encounter Details Date Type Department Care Team ([facility] st Contact Info) Description 09/27/2024 Refill [facility] [address] [place], [place] [phone] Valencia Jackman MD [address] [place], [place] [phone] Uncomplicated opioid dependence (CMS/HCC) Social History Tobacco Use Types Packs/Day Years Used Date Smoking Tobacco: Former Passive Smoke Exposure: Past Smokeless Tobacco: Never Comments:Mr. [place] Barron sa ys he was able to quit cigarettes on his own. Alcohol Use Standard Drinks/Week Comments Never 0 (1 standard drink = 0.6 oz pur e alcohol) Depression Answer Date Recorded Patient Health Questionnaire-9 Score 1 08/13/2024 Patient Health Questionnaire-9 Score 1 08/13/2024 Last PHQ-9: Questionnaire Data Not on file 1 Housing Stability Answer Date Recorded What is your housing situation today? I have demetria abbtot 08/13/[address] you li [...] Answer Date Recorded Patient Health Questionnaire-2 Score 0 08/13/2024 Internet Access Answer Date Recorded Internet Access Q1 Yes 08/13/2024 Internet Access Q2 Not on file 08/13/2024 Sex and Gender Information Value Date Recorded [...] Description 09/05/2025 2:30 PM EST Office Visit [facility] [address] [place] [phone] Valencia Jackman MD [address] [place] [address] documented as of this encounter Goals Goal Patient Goal Type Associated Problems Recent Progress Patient-Stated? Author Blood Pressure < 150/90 Blood Pressure 122/74(2024 10:09 AM EST) No Js Willett, PharmD Note: Per JNC-8 Age greater than 60 y/o, no history of DM or CKD. documented as of this encounter Visit Diagnoses Diagnosis Uncomplicated opioid dependence (CMS/HCC) (HCC) documented in this encounter Additional Health Concerns Assessment Noted Time PHQ-9 Depression Total Score: 1 08/13/20 24 2:05 PM EST documented as of this encounter Care Teams Facilities Director Relationship Specialty Start Date End Date Tresa Tran MD [address] [place] [phone] PCP - General Family Medicine 08/15/18 Js Willett, PharmD [address] [place] [phone] Pharmacist Internal Medicine 11/01/22 documented as of this encounter
--- OUTSIDE RECORDS SUMMARY | 2025-08-06 12:28 | XMS_ITS | Encounter Summary ---
Author Organization [employer] Address [address] [place] [address] Care Team Providers Care Labor Employment Associate Name Role Phone Tresa Tran MD Primary Care Provider [phone] Js Willett PharmD Unavailable [phone] Reason for Visit * Reason Onset Date Comments Med Refill 09/13/2023 Encounter Details Date Type Department Care Team (Late st Contact Info) Description 09/13/2023 Telephone [facility] [address] [place], [place] [phone] Tresa Tran MD [address] [place], [place] [phone] Med Refill Social History Tobacco Use Types Packs/Day Years Used Date Smoking Tobacco: Former Cigarettes Passive Smoke Exposure: Past Smokeless Tobacco: Never Comments:Mr. Boston Barron sa ys he was able to quit cigarettes on his own. Alcohol Use Standard Drinks/Week Comments Never 0 (1 standard drink = 0.6 oz pur e alcohol) Depression Answer Date Recorded Patient Health Questionnaire-9 Score 0 05/30/2023 Patient Health Questionnaire-9 Score 0 05/30/2023 Last PHQ-9: Questionnaire Data Not on file 1 Housing Stability Answer Date Recorded What is your housing situation today? I have demetria abbott 05/30/[address] you li ve. Do you have problems with any of the following? None of the above 05/30/2023 Food Insecurity Answer Date Recorded Within the past 12 months, y ou worried that your food would run out before you got money to buy more: Never True 05/30/2023 Within the past 12 months,th e food you bought just didn't last and you didn't have enough money to get more: Never True Transportation Answer Date Recorded In the past 12 months, has l ack of transportation kept you from medical appts, meetings, work or from getting things needed for daily living? No 05/30/2023 Utilities Answer Date Recorded In the past 12 months, has t he electric, gas, oil or water company threatened to shut off services in your home? No 05/30/2023 Depression Answer Date Recorded Patient Health Questionnaire-2 Score 0 05/30/2023 Sex and Gender Information Value Date Recorded Sex Assigned at Male 06/14/2022 10:16 AM EDT Legal Sex Male 10:16 AM EDT Gender Identity Male 06/14/2022 10:16 AM EDT Sexual Orientation Choose not to disclose 2021 10:16 AM EDT documented as of this encounter Miscellaneous Notes * Telephone Encounter - Lora Che LPN - 09/13/2023 4:14 PM EST Medication is prescribed by Dr. Hammer. * Telephone Encounter - Linda Kelly - 09/13/2023 4:08 PM EST TC from pt requesting medication refill. Medications needing refill : [id number] (Trelegy Ellipta) 100-62.5-25 MCG/ACT To be sent to: [facility] Pharmacy Pt is currently out of medication. documented in this encounter Plan of Treatment Upcoming Encounters Date Type Department Care Team (Late st Contact Info) Description 09/05/2025 2:30 PM EST Office Visit [facility] [address] [place] [address] Valencia Jackman MD [address] [place], [place] [phone] documented as of this encounter Goals Goal Patient Goal Type Associated Problems Recent Progress Patient-Stated? Author Blood Pressure < 150/90 Blood Pressure 122/74(2024 10:09 AM EST) No Js Willett, PharmRaul Note: Per JNC-8 Age greater than 60 y/o, no history of DM or CKD. documented as of this encounter Visit Diagnoses Not on filedocumented in this encounter Additional Health Concerns Assessment Noted Time PHQ-9 Depression Total Score: 0 05/30/20 11:02 AM EDT documented as of this encounter Care Teams Labor Employment Associate Relationship Specialty Start Date End Date Tresa Tran MD [address] [place] [address] PCP - General Family Medicine 08/15/18 Js Willett, PharmD [address] [place] [address] Pharmacist Internal Medicine 11/01/22 documented as of this encounter
--- OUTSIDE RECORDS SUMMARY | 2025-08-06 12:28 | XMS_ITS | Patient Health Record ---
Author Organization [facility] Address [address] [place] [address] Care Team Providers Care Hand Cutter Name Role Phone Chelsea LUZ, Tresa Primary Care Provider Maycol Ayers Unavailable [phone] Allergies No Known Allergies Reason For Referral No Information Medications Medication SIG (Take, Route, Frequency, Duration) Notes Start Date End Date Status buPROPion HCl ER (SR) 100 MG Tablet Extended Release 12 Hour TOME ABNER TABLETA DOS VECES AL D A Oral; Duration: 90 Active Meclizine HCl 12.5 MG Tablet TOME ABNER TABLETA JENN VECES AL D A CUANDO SEA NECESARIO FOR DIZZINESS Oral; Duration: 3 Active Aspir-81 81mg Active Vitamin D3 Active NIFEdipine ER 30mg A ctive Cilostazol 50mg Acti ve Metoprolol Succinate ER 100mg Active Centrum Adult Active Doxazosin Mesylate 8mg Active cloNIDine HCl 0.3mg Active Atorvastatin Calcium 80mg Active Lisinopril 40mg Acti ve Social History Tobacco Use: Social History Observation Description Date Details (start date - stop date) Former Smoker NA - NA Social History Tobacco Use: Social Info Question Answer Notes Tobacco Use/Smoking Patient is a former smoker How long has it been since you last smoked? 5-10 years Additional Details Category Social Info Options Details Miscellaneous: Marital status: single Occupation: unemployed Section Notes: Smokes marijauna and occ. ci garettes; no alcohol Smokes marijauna. Stopped smoking cigarettes in 2023; no alcohol Problems Problem Type SNOMED Code ICD Code Onset Dates Problem Status W/U Status Risk Notes Problem Colon cancer screening (795410205) Colon cancer screening (Z12.11) Active confirmed Problem Preprocedural examination (894738226365418) Preprocedural examination (Z01.818) Active confirmed Problem History of hepatitis C (90344786375548) History of hepatitis C (Z86.19) Active confirmed Problem Generalized abdominal pain (439583830) Generalized abdominal discomfort (R10.84) Active confirmed Plan Of Treatment Future Test Test Name Order Date COLONOSCOPY 02/08/2013 Insurance Providers Payer Name Payer Address Payer Phone Subscriber Number Group Number Insured Name Patient Relationship to Insured Coverage Start Date Coverage End Date [employer] [address] [place], [place] [phone] [id number] SHAHRAM MYERS Self - patient is the insured MEDICAID [facility] [employer] [employer] [facility] [address] [place] [address] [id number] SHAHRAM MYESR Self - patient is the insured MEDICARE [facility] [address] [place] [address] [phone] [id number] SHAHRAM MYRES Self - patient is the insured Medical [...] C viral load in 2018 Hypertension Denies MT,DM,CVA,Lung disease,renal dise ase PVD with stents in the LE's--describes m ultiple procedures Negative screening colonoscopy in 3 Hyperlipidemia Surgical History Surgery Date(Month/Year) Hernia surgery Back surgery for disk disease. Stents in lower extremities
--- OUTSIDE RECORDS SUMMARY | 2025-08-06 12:28 | XMS_ITS | Encounter Summary ---
Author Organization [employer] Address [address] [place] [address] Care Team Providers Care Product Manager Name Role Phone Tresa Tran MD Primary Care Provider [phone] Js Willett PharmD Unavailable [phone] Reason for Visit * Reason Comments Med Refill Encounter Details Date Type Department Care Team ([facility] st Contact Info) Description 02/07/2024 Refill [facility] [address] [place], [place] [phone] Tresa Tran MD [address] [place], [place] [phone] Impacted cerumen, unspecified laterality Social History Tobacco Use Types Packs/Day Years [...] Description 09/05/2025 2:30 PM EST Office Visit [facility] [address] [place] [address] Valencia Jackman MD [address] [place] [address] documented as of this encounter Goals Goal Patient Goal Type Associated Problems Recent Progress Patient-Stated? Author Blood Pressure < 150/90 Blood Pressure 122/74(2024 10:09 AM EST) No Js Willett, Wil Note: Per JNC-8 Age greater than 60 y/o, no history of DM or CKD. documented as of this encounter Visit Diagnoses Diagnosis Impacted cerumen, unspecified laterality documented in this encounter Additional Health Concerns Assessment Noted Time PHQ-9 Depression Total Score: 0 05/30/20 23 11:02 AM EDT documented as of this encounter Care Teams Product Manager Relationship Specialty Start Date End Date Tresa Tran MD [address] [place] [address] PCP - General Family Medicine 08/15/18 Js Willett, PharmD [address] [place] [address] Pharmacist Internal Medicine 11/01/22 documented as of this encounter
--- OUTSIDE RECORDS SUMMARY | 2025-08-06 12:28 | XMS_ITS | Encounter Summary ---
Author Organization [employer] Address [address] [place] [address] Care Team Providers Care Cemetery Worker Name Role Phone Tresa Tran MD Primary Care Provider [phone] Js Willett PharmD Unavailable [phone] Reason for Visit * Reason Onset Date Comments Appointment Request 04/03/2024 Encounter Details Date Type Department Care Team ([facility] st Contact Info) Description 04/03/2024 Telephone [facility] [address] [place], [place] [phone] Tresa Tran MD [address] [place], [place] [phone] Appointment Request Social History Tobacco Use Types Packs/Day Years [...] encounter Miscellaneous Notes * Telephone Encounter - Ritchie Motley - 04/03/2024 9:58 AM EDT Tc from patients Son calling to cancel appt for 04/03 and would like to reschedule filing writer attempted to reschedule however there was no availability at the moment documented in this encounter Plan of Treatment Upcoming Encounters Date Type Department Care Team (Late st Contact Info) Description 09/05/2025 2:30 PM EST Office Visit [facility] [address] [place] [address] Valencia Jackman MD [address] [place] [address] documented as of this encounter Goals Goal Patient Goal Type Associated Problems Recent Progress Patient-Stated? Author Blood Pressure < 150/90 Blood Pressure 122/74(2024 10:09 AM EST) Js Cohn, PharmD Note: Per JNC-8 Age greater than 60 y/o, no history of DM or CKD. documented as of this encounter Visit Diagnoses Not on filedocumented in this encounter Additional Health Concerns Assessment Noted Time PHQ-9 Depression Total Score: 0 05/30/20 11:02 AM EDT documented as of this encounter Care Teams Cemetery Worker Relationship Specialty Start Date End Date Tresa Tran MD [address] [place] [address] PCP - General Family Medicine 08/15/18 Js Willett, DevenD [address] [place] [address] Pharmacist Internal Medicine 11/01/22 documented as of this encounter
--- OUTSIDE RECORDS SUMMARY | 2025-08-06 12:28 | XMS_ITS | Encounter Summary ---
Author Organization [email or web address] [facility] Address [address] [place] [address] 7t [place] [address] Care Team Providers Care Aquatic Biologist Name Role Phone Tresa Tran MD Primary Care Provider [phone] Js Willett PharmD Unavailable [phone] Reason for Visit * Reason Comments Med Refill Encounter Details Date Type Department Care Team (Late st Contact Info) Description 02/17/2023 Refill [facility] [address] [place] [address] [phone] Valencia Jackman MD [address] [place], [place] [phone] Uncomplicated opioid dependence (CMS/[facility]) Social History Tobacco Use Types Packs/Day Years Used Date Smoking Tobacco: Former Cigarettes Passive Smoke Exposure: Past Smokeless Tobacco: Never Sex and Gender Information Value Date Recorded Sex Assigned at Male 06/14/2022 10:16 AM EDT Legal Sex Male 10:16 AM EDT Gender Identity Male 06/14/2022 10:16 AM EDT Sexual Orientation Choose not to disclose 2021 10:16 AM EDT COVID-19 Exposure Response Date Recorded In the last 10 days, have yo u been in contact with someone who was confirmed or suspected to have Coronavirus/COVID-19? No / Unsure 01/21/2023 11:11 AM EDT documented as of this encounter Plan of Treatment Upcoming Encounters Date Type Department Care Team (Late st Contact Info) Description 09/05/2025 2:30 PM EST Office Visit [facility] [address] [place] [phone] Valencia Jackman MD [address] [place] [address] documented as of this encounter Goals Goal Patient Goal Type Associated Problems Recent Progress Patient-Stated? Author Blood Pressure < 150/90 Blood Pressure 122/74(2024 10:09 AM EST) No Js Willett, Wil Note: Per JNC-8 Age greater than 60 y/o, no history of DM or CKD. documented as of this encounter Visit Diagnoses Diagnosis Uncomplicated opioid dependence (CMS/HCC) (HCC) documented in this encounter Care Teams Aquatic Biologist Relationship Specialty Start Date End Date Tresa Tran MD [address] [place] [address] PCP - General Family Medicine 08/15/18 Js Willett, PharmD [address] [place] [phone] Pharmacist Internal Medicine 11/01/22 documented as of this encounter
--- OUTSIDE RECORDS SUMMARY | 2025-08-06 12:28 | XMS_ITS | Encounter Summary ---
Author Organization [employer] Address [address] [place] [address] Care Team Providers Care Transportation Services Representative Name Role Phone Tresa Tran MD Primary Care Provider [phone] Js Willett PharmD Unavailable [phone] Reason for Visit * Reason Comments Med Refill Encounter Details Date Type Department Care Team (Late st Contact Info) Description 11/24/2023 Refill [facility] [address] [place], [place] [phone] Torito Neil MD [address] [place], [place] [phone] Uncomplicated opioid dependence (CMS/HCC) Social History Tobacco [...] Description 09/05/2025 2:30 PM EST Office Visit [facility] [address] [place] [address] Valencia Jackman MD [address] [place] [address] documented as of this encounter Goals Goal [...] documented as of this encounter Care Teams Transportation Services Representative Relationship Specialty Start Date End Date Tresa Tran MD [address] [place] [address] PCP - General Family Medicine 08/15/18 Js Willett, PharmD [address] [place] [address] Pharmacist Internal Medicine 11/01/22 documented as of this encounter
--- OUTSIDE RECORDS SUMMARY | 2025-08-06 12:28 | XMS_ITS | Encounter Summary ---
Author Organization [employer] Address [address] [place] [address] Care Team Providers Care Commodity Analyst Name Role Phone Tresa Tran MD Primary Care Provider [phone] Js Willett PharmD Unavailable [phone] Reason for Visit * Reason Onset Date Comments chart prep 08/05/2025 Encounter Details Date Type Department Care Team ([facility] st Contact Info) Description 08/05/2025 Telephone [facility] [address] [place], [place] [phone] Tresa Tran MD [address] [place], [place] [phone] chart prep Social History Tobacco Use Types Packs/Day Years [...] encounter Miscellaneous Notes * Telephone Encounter - Mary Forrester [place] - 08/05/2025 11:44 AM EST Chart Prep Labs: done Images: not done Screenings: Not Applicable Vaccines due: Covid Due Referrals: Dentist appointment pending Overdue care gaps: None documented in this encounter Plan of Treatment Upcoming Encounters Date Type Department Care Team (Late st Contact Info) Description 09/05/2025 2:30 PM EST Office Visit [facility] [address] [place] [address] Valencia Jackman MD [address] [place] [address] documented as of this encounter Goals Goal [...] documented as of this encounter Care Teams Commodity Analyst Relationship Specialty Start Date End Date Tresa Tran MD [address] [place] [address] PCP - General Family Medicine 08/15/18 Js Willett, DevenD [address] [place] [phone] Pharmacist Internal Medicine 11/01/22 documented as of this encounter
--- OUTSIDE RECORDS SUMMARY | 2025-08-06 12:29 | XMS_ITS | Clinical Summary ---
Author Organization [employer] Address [address] [place] [address] [address] [place] [address] Care Team Providers Care Nanotechnician Name Role Phone Tresa Tran MD Primary Care Provider [phone] Js Willett PharmD Unavailable [phone] Allergies Active Allergy Reactions Criticality Noted Date Comments Rosuvastatin 10/31/2013 Other reaction(s): Myalgia Thiazide-Type Diuretics 07/28/2010 Other reaction(s): hypokalemia Medications cholecalciferol (Vitamin D-3) 25 MCG (1000 UT) capsule OTC Active multivitamin (Theragran) tablet OTC Active albuterol (2.5 MG/3ML) 0.083% nebulizer solution Active ciclopirox (Penlac) 8 % solutionIndicatio ns:Onychomycosis of left great toe Apply topically at bedtime. Tongan label 6 mL 3 3 Active Blood Pressure Monitor kitIndications:Pr imary hypertension Use to check blood pressure daily as directed 1 kit 4 Active albuterol 108 (90 Base) MCG/ACT inhaler INHALE 2 PUFFS BY MOUTH EVERY 4 TO 6 HOURS NEEDED FOR DIFFICULTY BREATHING DO NOT EXCEED 4 TIMES / DAY 18 g 3 4 Active Fluticasone-Umecl idin-Vilant (Trelegy Ellipta) 100-62.5-25 MCG/ACT aerosol powder Inhale 1 puff Once daily. 30 each 11 08/01/2025 12:18 PM EST 4 Active Neomycin-Polymyxi n-HC 1 % solution Administer 3 drops into affected ear(s) 4 times daily. 10 mL 4 Active ketoconazole (NIZOral) 2 % cream Apply to affected area (face / nose) once daily 60 g 1 5 Active ammonium lactate (Lac-Hydrin) 12 % lotion Apply topically if needed for dry skin. 400 g 1 5 10/31/19 26 Active furosemide (Lasix) 20 MG tablet Take 20 mg by mouth if needed each day. 5 Active metoprolol succinate XL (Toprol-XL) 100 MG 24 hr tablet TAKE 1 AND 1/2 TABLET BY MOUTH EVERY DAY 135 tablet 3 5 Active lisinopril 40 MG tablet TAKE 1 TABLET BY MOUTH EVERY DAY 90 tablet 3 5 Active doxazosin (Cardura) 8 MG tablet TAKE 1 TABLET BY MOUTH AT BEDTIME 90 tablet 1 5 Active cloNIDine (Catapres) 0.3 MG tablet TAKE 1 TABLET BY MOUTH TWICE A DAY 180 tablet 1 5 Active NIFEdipine CC (Adalat CC) 30 MG 24 hr tablet TAKE 1 TABLET BY MOUTH EVERY DAY 90 tablet 1 5 Active buPROPion SR (Wellbutrin SR) 100 MG 12 hr tabletIndications :Anxiety and depression TAKE 1 TABLET BY MOUTH TWICE A DAY 180 tablet 1 5 Active cilostazol (Pletal) 100 MG tablet TAKE 1 TABLET ORALLY TWICE DAILY, TAKE 1-2 HOUR BEFORE OR 2 HOURS AFTER BREAKFAST AND DINNER 180 tablet 3 5 Active Buprenorphine HCl-Naloxone HCl (Suboxone) 8-2 MG SL filmIndications:U ncomplicated opioid dependence (CMS/HCC) (HCC) Place 2 Film under the tongue Once per day. 56 Film 2 07/10/2025 9:41 AM EST 5 08/29/19 Active atorvastatin (Lipitor) 80 MG tabletIndications :Dyslipidemia Take 1 tablet (80 mg) by mouth Once per day. TAKE 1 TABLET MY MOUTH AT BED TIME 90 tablet 3 5 Active aspirin (Aspirin Low Dose) 81 MG EC tablet TAKE 1 TABLET BY MOUTH EVERY DAY 90 tablet 3 5 Active Active Problems Problem Noted Date Diagnosed Date Cognitive impairment 08/06/2025 Venous insufficiency 11/03/2024 Assessment & Plan (11/03/2024 6:59 AM EDT): - Recently prescribed furosemide and compression stocking by wildlife biology technician Sep 2024 Dizziness 10/23/2023 Assessment & Plan (12/27/2023 5:37 PM EDT): - normal CTA head and neck on 08/29/23 - carotid US on 09/30/23 showed bilateral 1-49% stenosis - prescribed meclizine from ED for BPPV - evaluated by neurologist on 12/14/23 and given reassurance - patient reports no recurrence of symptoms Assessment & Plan (10/23/2023 6:49 PM EDT): - normal CTA head and neck on 08/29/23 - carotid US on 09/30/23 showed bilateral 1-49% stenosis - prescribed meclizine from ED for BPPV - refer to neurologist for recommendation on further evaluation and management Bilateral carotid artery stenosis 10/23/2023 Assessment & Plan (01/22/2025 4:32 PM EDT): - 09/30/23 Carotid US bilateral 1-49% stenosis - 08/29/23 CTA head and neck normal - following with [facility] - optimize risk factor management Assessment & Plan (08/13/2024 4:13 PM EST): - 09/30/23 Carotid US bilateral 1-49% stenosis - 08/29/23 CTA head and neck normal - following with [facility] - optimize risk factor management Assessment & Plan (12/27/2023 2:04 PM EDT): - 09/30/23 Carotid US bilateral 1-49% stenosis - 08/29/23 CTA head and neck normal - following with [facility] - optimize risk factor management Assessment & Plan (10/23/2023 6:55 PM EDT): - 09/30/23 Carotid US bilateral 1-49% stenosis - 08/29/23 CTA head and neck normal - following with [facility] - optimize risk factor management Benign paroxysmal positional vertigo 09/09/2023 09/09/2023 Assessment & Plan (07/31/2024 2:15 PM EST): No anemia or hyperglycemia. Advised to avoid smoking THC, increase PO fluid intake Take meclizine prn Peripheral nerve disease 04/29/2023 History of adenomatous polyp of colon 04/29/2023 Bradycardia 04/29/2023 Atherosclerosis of artery 04/29/2023 Intermittent claudication 04/29/2023 Onychomycosis of left great toe 03/20/2023 Overview (03/20/2023): - Discussed about oral vs topical medications - pt would like to try topical medication, ciplo Assessment & Plan (03/20/2023 7:22 PM EDT): - Discussed about oral vs topical medications - pt would like to try topical medication, ciplopirox or terbinafine - emphasized the importance of daily application Pulmonary nodule 03/20/2023 Assessment & Plan (07/06/2023 8:37 AM EST): - smoking history > 50 pack years - a stable small HORACE nodule - [place] in [facility] [place] Sep [place], Lung RADS 2 - Recently had CT at [facility] ED in May 2023 showing a 2 mm left LLL nodule Assessment & Plan (03/20/2023 7:30 PM EDT): - smoking history > 50 pack years - a stable small HORACE nodule - last CT in Sep 2022, Lung RADS 2 Femoral artery stenosis, right 08/31/2022 Assessment & Plan (07/06/2023 8:34 AM EST): Vascular specialist: [facility] and [facility] Continue ASA. Continue working on smoking cessation. -He has known occlusion of the left common iliac artery, left external iliac artery, left common femoral artery, left superficial femoral artery, and the bypass graft extending from the femoral-femoral bypass graft to the popliteal artery. -Continue working on lifestyle modification and medications to optimize his condition for secondary prevention --Most Recent Vascular studies: -04/09/22 LUCI showed right PHYSICIAN'S ASSISTANT proximal stenosis 50-99%, right SFA occlusion, left JENNIFER, EIA, PHYSICIAN'S ASSISTANT, and SFA occlusion. -08/12/22 TRAN right 0.53; left 0.31 Assessment & Plan (03/20/2023 7:20 PM EDT): -s/p right iliac thrombectomy, endarterectomy of distal external iliac artery, common femoral artery, and profunda femoris artery with angioplasty and open thrombectomy on 06/19/[address] Card --Most Recent vascular studies: -04/09/22 LUCI showed right PHYSICIAN'S ASSISTANT proximal stenosis 50-99%, right SFA occlusion, left JENNIFER, EIA, PHYSICIAN'S ASSISTANT, and SFA occlusion. -08/12/22 TRAN right 0.53; left 0.31 Assessment & Plan (08/31/2022 9:49 AM EST): -s/p right iliac thrombectomy, endarterectomy of distal external iliac artery, common femoral artery, and profunda femoris artery with angioplasty and open thrombectomy on 06/19/[address] Card --Most Recent vascular studies: -04/09/22 LUCI showed right PHYSICIAN'S ASSISTANT proximal stenosis 50-99%, right SFA occlusion, left JENNIFER, EIA, PHYSICIAN'S ASSISTANT, and SFA occlusion. -08/12/22 TRAN right 0.53; left 0.31 COPD (chronic obstructive pulmonary disease) Assessment & Plan (11/03/2024 6:55 AM EDT): -Previously followed by [facility], last seen on 10/08/21. -Continue fluticasone / umeclidinium / vilanterol (Trelegy); will send a new order -Continue albuterol nebulizer treatment with Acapella valve -Remain non-smoker Assessment & Plan (08/13/2024 4:12 PM EST): -Previously followed by [facility], last seen on 10/08/21. -Continue fluticasone / umeclidinium / vilanterol (Trelegy); will send a new order -Continue albuterol nebulizer treatment with Acapella valve -Remain non-smoker Assessment & Plan (12/27/2023 2:04 PM EDT): -Previously followed by [facility], last seen on 10/08/21. -Continue fluticasone / umeclidinium / vilanterol (Trelegy); will send a new order -Continue albuterol nebulizer treatment with Acapella valve -Remain non-smoker Assessment & Plan (10/23/2023 6:57 PM EDT): -Previously followed by [facility], last seen on 10/08/21. -Continue fluticasone / umeclidinium / vilanterol (Trelegy); will send a new order -Continue albuterol nebulizer treatment with Acapella valve -Remain non-smoker Assessment & Plan (07/06/2023 8:32 AM EST): - Followed by [facility], last seen on 10/08/21. -Continue chest PT -Continue Trelegy -Continue albuterol nebulizer treatment with Acapella valve -Remain non-smoker Assessment & Plan (03/20/2023 7:14 PM EDT): - Followed by [facility], last seen on 10/08/21. -Continue chest PT -Continue Trelegy -Continue albuterol nebulizer treatment with Acapella valve -Remain non-smoker Assessment & Plan (08/31/2022 9:50 AM EST): - Followed by [facility], last seen on 10/08/21. -Continue chest PT -Continue Trelegy -Continue albuterol nebulizer treatment with Acapella valve Depressive disorder 08/31/2022 Assessment & Plan (03/20/2023 7:29 PM EDT): - continue bupropion - continue BHS through [facility] Assessment & Plan (12/27/2022 7:18 AM EDT): - continue bupropion - continue [facility] through [facility] Assessment & Plan (08/31/2022 10:01 AM EST): - continue bupropion - continue [facility] through [facility] History of smoking greater than 50 pack years Assessment & Plan (11/03/2024 7:01 AM EDT): - last CT scan in Sep 2022 Lung-RADS 2, stable left upper lobe nodule - continue annual screening through [facility] [place] Prado Assessment & Plan (12/27/2023 2:06 PM EDT): - last CT scan in Sep 2022 Lung-RADS 2, stable left upper lobe nodule - continue annual screening through [facility] [place] Prado Assessment & Plan (03/20/2023 7:27 PM EDT): - last CT scan in Sep 2022 Lung-RADS 2, stable left upper lobe nodule - continue annual screening through [facility] [place] Prado Assessment & Plan (12/27/2022 7:18 AM EDT): - last CT scan in Sep 2021 Lung-RADS 2 - continue annual screening through [facility] [place] Prado Assessment & Plan (08/31/2022 10:04 AM EST): - last CT scan in Sep 2021 Lung-RADS 2 - continue annual screening through [facility] [place] Prado History of hepatitis C 08/31/2022 Assessment & Plan (03/20/2023 7:21 PM EDT): - s/p treatment with interferon by Dr. Dukes Assessment & Plan (08/31/2022 10:06 AM EST): - s/p treatment with interferon by Dr. Dukes Uncomplicated opioid dependence (CMS/HCC) 2021 Assessment & Plan (11/03/2024 7:01 AM EDT): - participating [facility] - continue harm reduction / overdose prevention / recovery effort - overdose risk: decreased tolerance; medical problems (COPD and high risk for ASCVD); age Assessment & Plan (12/27/2023 2:06 PM EDT): - participating [facility] - continue harm reduction / overdose prevention / recovery effort Assessment & Plan (07/06/2023 8:35 AM EST): - participating [facility] - continue harm reduction / overdose prevention / recovery effort Assessment & Plan (03/20/2023 7:25 PM EDT): - participating [facility] - continue harm reduction / overdose prevention / recovery effort Assessment & Plan (07/14/2022 11:11 AM EST): Counseling provided RE: importance of multiple sources of support for achieving and maintaining recovery. Counseling RE: harm reduction measures, ie, not using alone, the use of clean needles/equipment, Narcan. Discussed strategies to use when confronted with situations that trigger use. Continue monthly visits. This information has been disclosed to you from records protected by federal confidentiality rules (42 CFR Part 2). The federal rules prohibit you from making any further disclosure of information in this record that identifies a patient as having or having had a substance use disorder either directly, by reference to publicly available information, or through verification of such identification by another person unless further disclosure is expressly permitted by the written consent of the individual whose information is being disclosed or as otherwise permitted by (see 2.3.1). The federal rules restrict any use of the information to investigate or prosecute with regard to a crime any patient with a substance use disorder, except as provided at 2.12 (5) and 2.65. History of tobacco use 07/07/2022 Assessment & Plan (11/03/2024 7:02 AM EDT): - pt has tried nicotine replacement, varenicline, and is currently on bupropion for depression / anxiety - continue working on smoking cessation. - pt states he is no longer smoking cigarette - annual lung cancer screening CT - last CT in Sep 2022 Assessment & Plan (12/27/2023 2:06 PM EDT): - pt has tried nicotine replacement, varenicline, and is currently on bupropion for depression / anxiety - continue working on smoking cessation. - pt states he is no longer smoking cigarette - annual lung cancer screening CT - last CT in Sep 2022 Assessment & Plan (07/06/2023 8:35 AM EST): - pt has tried nicotine replacement, varenicline, and is currently on bupropion for depression / anxiety - continue working on smoking cessation. - pt states he is no longer smoking cigarette - annual lung cancer screening CT - last CT in Sep 2022 Assessment & Plan (03/20/2023 7:24 PM EDT): - pt has tried nicotine replacement, varenicline, and is currently on bupropion for depression / anxiety - continue working on smoking cessation. - pt states he is no longer smoking cigarette - annual lung cancer screening CT - last CT in Sep 2022 Assessment & Plan (12/27/2022 7:18 AM EDT): - pt has tried nicotine replacement, varenicline, and is currently on bupropion for depression / anxiety - continue working on smoking cessation. - pt states he is no longer smoking cigarette - last CT scan in 2021 Assessment & Plan (09/03/2022 5:49 AM EST): - pt has tried nicotine replacement, varenicline, and is currently on bupropion for depression / anxiety - continue working on smoking cessation. - pt states he is no longer smoking cigarette - annual lung cancer screening CT History of extremity bypass graft 08/12/2017 Impaired fasting glucose 08/23/2016 Assessment & Plan (12/27/2023 2:05 PM EDT): - 10/12/21: A1c 5.9%. - 09/02/22 A1C 5.4% - 07/15/23 A1C 5.5% -Cont working on lifestyle modifications -Continue annual screening Assessment & Plan (10/23/2023 6:51 PM EDT): - 10/12/21: A1c 5.9%. - 09/02/22 A1C 5.4% - 07/15/23 A1C 5.5% -Cont working on lifestyle modifications -Continue annual screening Assessment & Plan (07/06/2023 8:34 AM EST): - 10/12/21: A1c 5.9%. - 09/02/22 A1C 5.4% -Cont working on lifestyle modifications -Continue annual screening Assessment & Plan (03/20/2023 7:23 PM EDT): - 10/12/21: A1c 5.9%. - 09/02/22 A1C 5.4% -Cont working on lifestyle modifications -Continue annual screening Assessment & Plan (09/03/2022 5:48 AM EST): - 10/12/21: A1c 5.9%. -Cont working on lifestyle modifications -Continue annual screening Iliac artery stenosis, right 07/23/2013 Assessment & Plan (07/06/2023 8:33 AM EST): - Vascular specialist: [facility] and [facility], Dr. Card - October 2015 stents in R common iliac and external iliac are patent. Right common femoral artery moderate stenosis. Right mid SFA occlusion. L SFA occlusion. Known occlusion L JENNIFER, EIA, R-> L Fem-Fem bypass, Fem-Pop bypass - Jun 2019 right open iliac thrombectomy, endarterectomy of distal right external iliac artery, common femoral artery and profunda femoris artery with gore-norris patch angioplasty, and open thrombectomy under flouroscopy - 04/09/22 LUCI showed right PHYSICIAN'S ASSISTANT proximal stenosis 50-99%, right SFA occlusion, left JENNIFER, EIA, PHYSICIAN'S ASSISTANT, and SFA occlusion. - TRAN 08/12/22 Right 0.53; Left 0.31 (in 2020 Right 0.68; Left 0.40) Assessment & Plan (03/20/2023 7:17 PM EDT): -s/p right iliac thrombectomy, endarterectomy of distal external iliac artery, common femoral artery, and profunda femoris artery with angioplasty and open thrombectomy on 06/19/[address] Card Recent vascular studies: -04/09/22 LUCI showed right PHYSICIAN'S ASSISTANT proximal stenosis 50-99%, right SFA occlusion, left JENNIFER, EIA, PHYSICIAN'S ASSISTANT, and SFA occlusion. -08/12/22 TRAN right 0.53; left 0.31 Assessment & Plan (08/31/2022 9:51 AM EST): -s/p right iliac thrombectomy, endarterectomy of distal external iliac artery, common femoral artery, and profunda femoris artery with angioplasty and open thrombectomy on 06/19/[address] Card --Most Recent vascular studies: -04/09/22 LUCI showed right PHYSICIAN'S ASSISTANT proximal stenosis 50-99%, right SFA occlusion, left JENNIFER, EIA, PHYSICIAN'S ASSISTANT, and SFA occlusion. -08/12/22 TRAN right 0.53; left 0.31 Femoral artery stenosis, left 07/23/2013 Assessment & Plan (08/20/2024 5:39 AM EST): Vascular specialist: [facility] and [facility] Continue ASA. Continue working on smoking cessation. -He has known occlusion of the left common iliac artery, left external iliac artery, left common femoral artery, left superficial femoral artery, and the bypass graft extending from the femoral-femoral bypass graft to the popliteal artery. -Continue working on lifestyle modification and medications to optimize his condition for secondary prevention --Most Recent Vascular studies: -04/09/22 LUCI showed right PHYSICIAN'S ASSISTANT proximal stenosis 50-99%, right SFA occlusion, left JENNIFER, EIA, PHYSICIAN'S ASSISTANT, and SFA occlusion. -04/04/24 TRAN Left 0.22; Right 0.58 Assessment & Plan (07/06/2023 8:34 AM EST): Vascular specialist: [facility] and [facility] Continue ASA. Continue working on smoking cessation. -He has known occlusion of the left common iliac artery, left external iliac artery, left common femoral artery, left superficial femoral artery, and the bypass graft extending from the femoral-femoral bypass graft to the popliteal artery. -Continue working on lifestyle modification and medications to optimize his condition for secondary prevention --Most Recent Vascular studies: -04/09/22 LUCI showed right PHYSICIAN'S ASSISTANT proximal stenosis 50-99%, right SFA occlusion, left JENNIFER, EIA, PHYSICIAN'S ASSISTANT, and SFA occlusion. -08/12/22 TRAN right 0.53; left 0.31 Assessment & Plan (03/20/2023 7:20 PM EDT): Vascular specialist: [facility] and [facility] Continue ASA. Continue working on smoking cessation. -He has known occlusion of the left common iliac artery, left external iliac artery, left common femoral artery, left superficial femoral artery, and the bypass graft extending from the femoral-femoral bypass graft to the popliteal artery. -Continue working on lifestyle modification and medications to optimize his condition for secondary prevention --Most Recent Vascular studies: -04/09/22 LUCI showed right PHYSICIAN'S ASSISTANT proximal stenosis 50-99%, right SFA occlusion, left JENNIFER, EIA, PHYSICIAN'S ASSISTANT, and SFA occlusion. -08/12/22 TRAN right 0.53; left 0.31 Assessment & Plan (08/31/2022 9:47 AM EST): Vascular specialist: [facility] and [facility] Continue ASA. Continue working on smoking cessation. -He has known occlusion of the left common iliac artery, left external iliac artery, left common femoral artery, left superficial femoral artery, and the bypass graft extending from the femoral-femoral bypass graft to the popliteal artery. -Continue working on lifestyle modification and medications to optimize his condition for secondary prevention --Most Recent Vascular studies: -04/09/22 LUCI showed right PHYSICIAN'S ASSISTANT proximal stenosis 50-99%, right SFA occlusion, left JENNIFER, EIA, PHYSICIAN'S ASSISTANT, and SFA occlusion. -08/12/22 TRAN right 0.53; left 0.31 Benign prostatic hyperplasia 04/26/2012 Assessment & Plan (08/13/2024 4:14 PM EST): - Most recent PSA 1.1 09/17/20. - continue doxazosin for HTN - s/p TURP Assessment & Plan (12/27/2023 2:05 PM EDT): - Most recent PSA 1.1 09/17/20. - continue doxazosin for HTN - s/p TURP - recheck PSA due to his recent urinary symptom Assessment & Plan (03/20/2023 7:21 PM EDT): - Most recent PSA 1.1 09/17/20. - continue doxazosin for HTN - s/p TURP - recheck PSA due to his recent urinary symptom Assessment & Plan (09/03/2022 5:47 AM EST): - Most recent PSA 1.1 09/17/20. - continue doxazosin for HTN - s/p TURP - recheck PSA due to his recent urinary symptom Cannabis use without complication 04/26/2012 Assessment & Plan (11/03/2024 7:03 AM EDT): - smoking - discussed about judicious and responsible use - discussed about recent study which showed the correlation between marijuana use and adverse cardiovascular outcome among patient with existing high ASCVD risk. - pt has reduced consumption Assessment & Plan (03/20/2023 7:29 PM EDT): - smoking - discussed about judicious and responsible use - pt has reduced consumption Assessment & Plan (09/03/2022 5:48 AM EST): - smoking - discussed about judicious and responsible use Dyslipidemia 04/26/2012 Assessment & Plan (01/24/2025 10:12 PM EDT): - last lipid profile: 10/30/24 Total cholesterol 140; Triglyceride 86; HDL 40; LDL 83 - current medication: atorvastatin 80 mg at bedtime - treatment history: Pt had an adverse reaction with rosuvastatin - pt is on high intensity statin therapy because of PAD. - Consider adding ezetimibe - continue working on lifestyle modifications. Assessment & Plan (10/30/2024 9:05 AM EDT): - last lipid profile: 07/15/23 Total cholesterol 151; Triglyceride 67; HDL 50; LDL 88 - current medication: atorvastatin 80 mg at bedtime - treatment history: Pt had an adverse reaction with rosuvastatin - pt is on high intensity statin therapy because of PAD. - continue working on lifestyle modifications. Assessment & Plan (08/13/2024 4:14 PM EST): - last lipid profile: 07/15/23 Total cholesterol 151; Triglyceride 67; HDL 50; LDL 88 - current medication: atorvastatin 80 mg at bedtime - treatment history: Pt had an adverse reaction with rosuvastatin - pt is on high intensity statin therapy because of PAD. - continue working on lifestyle modifications. Assessment & Plan (12/27/2023 2:05 PM EDT): - last lipid profile: 07/15/23 Total cholesterol 151; Triglyceride 67; HDL 50; LDL 88 - current medication: atorvastatin 80 mg at bedtime - treatment history: Pt had an adverse reaction with rosuvastatin - pt is on high intensity statin therapy because of PAD. - continue working on lifestyle modifications. Assessment & Plan (10/23/2023 6:50 PM EDT): - last lipid profile: 07/15/23 Total cholesterol 151; Triglyceride 67; HDL 50; LDL 88 - current medication: atorvastatin 80 mg at bedtime - treatment history: Pt had an adverse reaction with rosuvastatin - pt is on high intensity statin therapy because of PAD. - continue working on lifestyle modifications. Assessment & Plan (07/06/2023 8:35 AM EST): - last lipid profile: 09/02/22 TC 134; TG 51, HDL 49; LDL 72 - current medication: atorvastatin 80 mg at bedtime - treatment history: Pt had an adverse reaction with rosuvastatin - pt is on high intensity statin therapy because of PAD. - continue working on lifestyle modifications. Assessment & Plan (03/20/2023 7:28 PM EDT): - last lipid profile: 09/02/22 TC 134; TG 51, HDL 49; LDL 72 - current medication: atorvastatin 80 mg at bedtime - treatment history: Pt had an adverse reaction with rosuvastatin - pt is on high intensity statin therapy because of PAD. - continue working on lifestyle modifications. Assessment & Plan (12/27/2022 7:16 AM EDT): - last lipid profile: 09/02/22 TC 134; TG 51, HDL 49; LDL 72 - current medication: atorvastatin 80 mg at bedtime - treatment history: Pt had an adverse reaction with rosuvastatin - pt is on high intensity statin therapy because of PAD. - continue working on lifestyle modifications. Assessment & Plan (08/31/2022 9:58 AM EST): - last lipid profile: 10/12/21 TC 134; TG 57; HDL 54; LDL 67 - current medication: atorvastatin 80 mg at bedtime - treatment history: Pt had an adverse reaction with rosuvastatin - pt is on high intensity statin therapy because of PAD. - continue working on lifestyle modifications. Peripheral arterial occlusive disease 04/26/2012 Assessment & Plan (01/22/2025 4:36 PM EDT): - Vascular specialist: Rhett, last seen in October 2024, follow up in 6 mo - October 2015 stents in R common iliac and external iliac are patent. Right common femoral artery moderate stenosis. Right mid SFA occlusion. L SFA occlusion. Known occlusion L JENNIFER, EIA, R-> L Fem-Fem bypass, Fem-Pop bypass - Jun 2019 right open iliac thrombectomy, endarterectomy of distal right external iliac artery, common femoral artery and profunda femoris artery with gore-norris patch angioplasty, and open thrombectomy under flouroscopy - 04/09/22 LUCI showed right PHYSICIAN'S ASSISTANT proximal stenosis 50-99%, right SFA occlusion, left JENNIFER, EIA, PHYSICIAN'S ASSISTANT, and SFA occlusion. - TRAN 08/12/22 Right 0.53; Left 0.31 (in 2020 Right 0.68; Left 0.40) - TRAN on 09/06/23 Right 0.65; Left 0.25 - TRAN on 04/04/24 Right 0.58; Left 0.22 - TRAN on 10/26/24 Right 0.60; Left 0.29 - Continue monitoring per vascular specialist Assessment & Plan (11/03/2024 6:56 AM EDT): - Vascular specialist: Rhett, last seen in Apr 2024, follow up in 6 mo - October 2015 stents in R common iliac and external iliac are patent. Right common femoral artery moderate stenosis. Right mid SFA occlusion. L SFA occlusion. Known occlusion L JENNIFER, EIA, R-> L Fem-Fem bypass, Fem-Pop bypass - Jun 2019 right open iliac thrombectomy, endarterectomy of distal right external iliac artery, common femoral artery and profunda femoris artery with gore-norris patch angioplasty, and open thrombectomy under flouroscopy - 04/09/22 LUCI showed right PHYSICIAN'S ASSISTANT proximal stenosis 50-99%, right SFA occlusion, left JENNIFER, EIA, PHYSICIAN'S ASSISTANT, and SFA occlusion. - TRAN 08/12/22 Right 0.53; Left 0.31 (in 2020 Right 0.68; Left 0.40) - TRAN on 09/06/23 Right 0.65; Left 0.25 - TRAN on 04/04/24 Right 0.58; Left 0.22 - TRAN on 10/26/24 Right 0.60; Left 0.29 - Continue monitoring per vascular specialist Assessment & Plan (08/20/2024 5:36 AM EST): - Vascular specialist: Rhett, last seen in Apr 2024, follow up in 6 mo - October 2015 stents in R common iliac and external iliac are patent. Right common femoral artery moderate stenosis. Right mid SFA occlusion. L SFA occlusion. Known occlusion L JENNIFER, EIA, R-> L Fem-Fem bypass, Fem-Pop bypass - Jun 2019 right open iliac thrombectomy, endarterectomy of distal right external iliac artery, common femoral artery and profunda femoris artery with gore-norris patch angioplasty, and open thrombectomy under flouroscopy - 04/09/22 LUCI showed right PHYSICIAN'S ASSISTANT proximal stenosis 50-99%, right SFA occlusion, left JENNIFER, EIA, PHYSICIAN'S ASSISTANT, and SFA occlusion. - TRAN 08/12/22 Right 0.53; Left 0.31 (in 2020 Right 0.68; Left 0.40) - TRAN on 09/06/23 Right 0.65; Left 0.25 - TRAN on 04/04/24 Right 0.58; Left 0.22 - Continue monitoring per vascular specialist Assessment & Plan (12/27/2023 2:04 PM EDT): - Vascular specialist: Rhett, last seen in Sep 2023 - October 2015 stents in R common iliac and external iliac are patent. Right common femoral artery moderate stenosis. Right mid SFA occlusion. L SFA occlusion. Known occlusion L JENNIFER, EIA, R-> L Fem-Fem bypass, Fem-Pop bypass - Jun 2019 right open iliac thrombectomy, endarterectomy of distal right external iliac artery, common femoral artery and profunda femoris artery with gore-norris patch angioplasty, and open thrombectomy under flouroscopy - 04/09/22 LUCI showed right PHYSICIAN'S ASSISTANT proximal stenosis 50-99%, right SFA occlusion, left JENNIFER, EIA, PHYSICIAN'S ASSISTANT, and SFA occlusion. - TRAN 08/12/22 Right 0.53; Left 0.31 (in 2020 Right 0.68; Left 0.40) - TRAN on 09/06/23 Right 0.65; Left 0.25 - Continue monitoring per vascular specialist Assessment & Plan (10/23/2023 6:54 PM EDT): - Vascular specialist: Rhett, last seen in Sep 2023 - October 2015 stents in R common iliac and external iliac are patent. Right common femoral artery moderate stenosis. Right mid SFA occlusion. L SFA occlusion. Known occlusion L JENNIFER, EIA, R-> L Fem-Fem bypass, Fem-Pop bypass - Jun 2019 right open iliac thrombectomy, endarterectomy of distal right external iliac artery, common femoral artery and profunda femoris artery with gore-norris patch angioplasty, and open thrombectomy under flouroscopy - 04/09/22 LUCI showed right PHYSICIAN'S ASSISTANT proximal stenosis 50-99%, right SFA occlusion, left JENNIFER, EIA, PHYSICIAN'S ASSISTANT, and SFA occlusion. - TRAN 08/12/22 Right 0.53; Left 0.31 (in 2020 Right 0.68; Left 0.40) - TRAN on 09/06/23 Right 0.65; Left 0.25 - Continue monitoring per vascular specialist Assessment & Plan (07/06/2023 8:33 AM EST): - [facility] - October 2015 stents in R common iliac and external iliac are patent. Right common femoral artery moderate stenosis. Right mid SFA occlusion. L SFA occlusion. Known occlusion L JENNIFER, EIA, R-> L Fem-Fem bypass, Fem-Pop bypass - Jun 2019 right open iliac thrombectomy, endarterectomy of distal right external iliac artery, common femoral artery and profunda femoris artery with gore-norris patch angioplasty, and open thrombectomy under flouroscopy - 04/09/22 LUCI showed right PHYSICIAN'S ASSISTANT proximal stenosis 50-99%, right SFA occlusion, left JENNIFER, EIA, PHYSICIAN'S ASSISTANT, and SFA occlusion. - TRAN 08/12/22 Right 0.53; Left 0.31 (in 2020 Right 0.68; Left 0.40) Assessment & Plan (03/20/2023 7:16 PM EDT): - [facility]ascular specialist[facility] - October 2015 stents in R common iliac and external iliac are patent. Right common femoral artery moderate stenosis. Right mid SFA occlusion. L SFA occlusion. Known occlusion L JENNIFER, EIA, R-> L Fem-Fem bypass, Fem-Pop bypass - Jun 2019 right open iliac thrombectomy, endarterectomy of distal right external iliac artery, common femoral artery and profunda femoris artery with gore-norris patch angioplasty, and open thrombectomy under flouroscopy - 04/09/22 LUCI showed right PHYSICIAN'S ASSISTANT proximal stenosis 50-99%, right SFA occlusion, left JENNIFER, EIA, PHYSICIAN'S ASSISTANT, and SFA occlusion. - TRAN 08/12/22 Right 0.53; Left 0.31 (in 2020 Right 0.68; Left 0.40) Assessment & Plan (12/27/2022 7:12 AM EDT): - [facility]ascular specialist: [facility] - October 2015 stents in R common iliac and external iliac are patent. Right common femoral artery moderate stenosis. Right mid SFA occlusion. L SFA occlusion. Known occlusion L JENNIFER, EIA, R-> L Fem-Fem bypass, Fem-Pop bypass - 04/09/22 LUCI showed right PHYSICIAN'S ASSISTANT proximal stenosis 50-99%, right SFA occlusion, left JENNIFER, EIA, PHYSICIAN'S ASSISTANT, and SFA occlusion. - TRAN 08/12/22 Right 0.53; Left 0.31 (in 2020 Right 0.68; Left 0.40) Assessment & Plan (08/31/2022 9:45 AM EST): - Vascular specialist: Serafin hill [facility] - October 2015 stents in R common iliac and external iliac are patent. Right common femoral artery moderate stenosis. Right mid SFA occlusion. L SFA occlusion. Known occlusion L JENNIFER, EIA, R-> L Fem-Fem bypass, Fem-Pop bypass - 04/09/22 LUCI showed right PHYSICIAN'S ASSISTANT proximal stenosis 50-99%, right SFA occlusion, left JENNIFER, EIA, PHYSICIAN'S ASSISTANT, and SFA occlusion. - TRAN 08/12/22 Right 0.53; Left 0.31 (in 2020 Right 0.68; Left 0.40) Hypertension 04/26/2012 Assessment & Plan (02/05/2025 3:07 PM EDT): - Goal BP < 130/80 per ACC/AHA guideline - Cat Wagon Operator: ZAID, last seen in December 2024 - Co-managed with our pharmacist, Js, through [employer] and wildlife biology technician - Echo on 04/24/19 Normal EF 60-65%. Mild thickening of mitral valve with mitral regurgitation. Mild pulmonary HTN. - 07/24/15 Nuclear stress test - No ischemia - Continue working on life style modifications. - Continue Clonidine 0.3 mg bid. - Continue metoprolol succinate 150 mg daily. - Continue doxazosin 8 mg qhs - Continue lisinopril 40 mg daily - Continue nifedipine 30 mg daily - Continue checking BP at home daily. If elevated at home, we will increase Nifedipine dose. - Ordered lab to screen for primary hyperaldosteronism. Reminded. - Follow-up in 3 mo or sooner prn Assessment & Plan (11/03/2024 6:58 AM EDT): - Goal BP <140/90 per JNC-8, < 130/80 per ACC/AHA guideline - Cat Wagon Operator: ZAID, last seen in November 2022 - Co-managed with our pharmacist, Js, through [employer] and wildlife biology technician - Echo on 04/24/19 Normal EF 60-65%. Mild thickening of mitral valve with mitral regurgitation. Mild pulmonary HTN. - 07/24/15 Nuclear stress test - No ischemia - Continue working on life style modifications. - Continue Clonidine 0.3 mg bid. - Continue metoprolol succinate 150 mg daily. - Continue doxazosin 8 mg qhs - Continue lisinopril 40 mg daily - Continue nifedipine 30 mg daily - Continue checking BP at home daily. If elevated at home, we will increase Nifedipine dose. - Ordered lab to screen for primary hyperaldosteronism. Reminded. - Follow-up in 3 mo or sooner prn Assessment & Plan (08/13/2024 4:13 PM EST): Uncontrolled today, advised re low slat diet, increase water intake and avoid sodas and THC use. Continue current meds: nifedipine, clonidine, metoprolol, doxazosin, lisinopril and fu with PCP on 08/13. RTC earlier prn if BP is above 180/110 or sxs get worse. Assessment & Plan (07/31/2024 2:15 PM EST): Uncontrolled today, advised re low slat diet, increase water intake and avoid sodas and THC use. Continue current meds: nifedipine, clonidine, metoprolol, doxazosin, lisinopril and fu with PCP on 08/13. RTC earlier prn if BP is above 180/110 or sxs get worse. Assessment & Plan (12/27/2023 2:04 PM EDT): - Goal BP <140/90 per JNC-8, < 130/80 per ACC/AHA guideline - Cat Wagon Operator: ZAID, last seen in November 2022 - Co-managed with our pharmacist, Js, through [employer]. Last appt in January 2023 - Echo on 04/24/19 Normal EF 60-65%. Mild thickening of mitral valve with mitral regurgitation. Mild pulmonary HTN. - 07/24/15 Nuclear stress test - No ischemia - Continue working on life style modifications. - Continue Clonidine 0.3 mg bid. - Continue metoprolol succinate 150 mg daily. - Continue doxazosin 8 mg qhs - Continue lisinopril 40 mg daily - Continue nifedipine 30 mg daily - Continue checking BP at home daily. If elevated at home, we will increase Nifedipine dose. - Follow-up in 3 mo or sooner prn Assessment & Plan (07/06/2023 8:33 AM EST): - Goal BP <140/90 per JNC-8, < 130/80 per ACC/AHA guideline - Cat Wagon Operator: ZAID, last seen in November 2022 - Co-managed with our pharmacist, Js, through [employer]. Last appt in January 2023 - Echo on 04/24/19 Normal EF 60-65%. Mild thickening of mitral valve with mitral regurgitation. Mild pulmonary HTN. - 07/24/15 Nuclear stress test - No ischemia - Continue working on life style modifications. - Continue Clonidine 0.3 mg bid. - Continue metoprolol succinate 150 mg daily. - Continue doxazosin 8 mg qhs - Continue lisinopril 40 mg daily - Continue nifedipine 30 mg daily - Continue checking BP at home daily. If elevated at home, we will increase Nifedipine dose. - Follow-up in 3 mo or sooner prn Assessment & Plan (03/20/2023 7:19 PM EDT): - Goal BP <140/90 per JNC-8, < 130/80 per ACC/AHA guideline - Cat Wagon Operator: ZAID, last seen in November 2022 - Co-managed with our pharmacist, Js, through [employer]. Last appt in January 2023 - Echo on 04/24/19 Normal EF 60-65%. Mild thickening of mitral valve with mitral regurgitation. Mild pulmonary HTN. - 07/24/15 Nuclear stress test - No ischemia - Continue working on life style modifications. - Continue Clonidine 0.3 mg bid. - Continue metoprolol succinate 150 mg daily. - Continue doxazosin 8 mg qhs - Continue lisinopril 40 mg daily - Continue nifedipine 30 mg daily - Continue checking BP at home daily. If elevated at home, we will increase Nifedipine dose. - Follow-up in 3 mo or sooner prn Assessment & Plan (12/27/2022 7:13 AM EDT): - Goal BP <140/90 per JNC-8, < 130/80 per ACC/AHA guideline - Cat Wagon Operator: ZAID, last seen in November 2022 - Co-managed with our pharmacist, Js, through [employer]. Last appt in October 2022 - Echo on 04/24/19 Normal EF 60-65%. Mild thickening of mitral valve with mitral regurgitation. Mild pulmonary HTN. - 07/24/15 Nuclear stress test - No ischemia - Continue working on life style modifications. - Continue Clonidine 0.3 mg bid. - Continue metoprolol succinate 150 mg daily. - Continue doxazosin 8 mg qhs - Continue lisinopril 40 mg daily - Continue nifedipine 30 mg daily - BP not at goal today. Fluctuating BP. - Patient was advised to check BP at home daily. If elevated at home, we will increase Nifedipine dose. - Follow-up in 3 mo or sooner prn Assessment & Plan (09/03/2022 5:46 AM EST): - Goal BP <140/90 per JNC-8, < 130/80 per ACC/AHA guideline - Cat Wagon Operator: ZAID, last seen in Jul 2022 - Echo on 04/24/19 Normal EF 60-65%. Mild thickening of mitral valve with mitral regurgitation. Mild pulmonary HTN. - 07/24/15 Nuclear stress test - No ischemia - Continue working on life style modifications. - Continue Clonidine 0.3 mg bid. - Continue metoprolol succinate 150 mg daily. - Continue doxazosin 8 mg qhs - Continue lisinopril 40 mg daily - Continue nifedipine 30 mg daily - BP not at goal today. Fluctuating BP. Will check with his BP at wildlife biology technician's office tomorrow. - Patient was advised to check BP at home daily. If elevated at home, we will increase Nifedipine dose. - Referring to [facility] - Follow-up in 3 mo or sooner prn Resolved Problems Problem Noted Date Diagnosed Date Resolved Date Disorder of blood vessel 08/02/2012 Encounters Date Type Department Care Team Description 08/06/2025 10:30 AM EST Office Visit [address] [address] Tresa Tran MD Primary hypertension (Primary Dx); Peripheral arterial occlusive disease; Dyslipidemia; Bilateral carotid artery stenosis; Cognitive impairment; Acute left ankle pain; Pain of left heel; Encounter for immunization; Impaired fasting glucose 08/06/2025 Travel 08/05/2025 Travel 08/05/[address] [address] Tresa Tran MD chart prep 07/24/2025 3:30 PM EST Clinical Support [facility] [address] [place] [address] Marissa Moreno RN Memory difficulties 07/24/2025 Travel 07/03/2025 Refill [facility] [address] [place] [address] Tresa Tran MD 06/13/2025 2:30 PM EDT Office Visit [facility] [address] [place] [address] Valencia Jackman MD Uncomplicated opioid dependence ([facility]) ([facility]) (Primary Dx); Encounter for immunization 06/13/2025 Travel 06/08/2025 Refill [facility] [address] [place] [address] Tresa Tran MD Dyslipidemia 06/06/2025 Refill [facility] [address] [place] [address] Valencia Jackman MD Uncomplicated opioid dependence (CMS/HCC) (HCC) 05/16/2025 1:00 PM EDT Office Visit [facility] [address] [place] [address] Valencia Jackman MD Uncomplicated opioid dependence (CMS/HCC) ([facility]) (Primary Dx) 05/16/2025 Travel 05/07/2025 Refill [facility] [address] [facility] [place] [address] Valencia Jackman MD Uncomplicated opioid dependence (CMS/HCC) from Last 3 Months Immunizations Immunization Administration Dates Next Due Hep A, Adult 06/29/2001,09/16/2000 Hep B, adult 06/29/2001,11/03/2000,09/16/2000 Influenza High-dose Quadriva lent Preservative Free 04/29/2023,06/05/2020 Influenza Quadrivalent Adjuvanted 04/25/2021 Influenza injectable quadriv alent IIV4 with preservative 08/31/2022,05/21/2019,08/12/2017,05/25,09/11/2015 Influenza injectable quadriv alent preservative free 08/07/2021,04/25/2014 Influenza, High Dose Seasona l, Preservative Free 06/13/2025,08/13/2024,06/19/2018 Influenza, IIV3, injectable 04/27/2011,0 05/11/2010,07/31/2009,05/10,06/06/2003,06/29/2001 Influenza, Split (incl. chele fied surface antigen) 07/23/2013,04/26/2012 Moderna Covid-19 Vaccine 12+ 02/18/2022, 07/01/2021,10/23/2020,09/26 Pfizer Covid-19 Vaccine 12+ 08/06/2025,,07/05/2023 Pfizer Covid-19 Vaccine 5-11 Bivalent 08/31/2022 Pneumococcal Conjugate PCV 13 05/25/2016 Pneumococcal Conjugate PCV 20 11/12/2022 Pneumococcal Polysaccharide PPSV23 01/06/2011, RSV Bivalent 08/25/2023 TD (adult), 2 Lf tetanus tox oid, preservative free, adsorbed 08/31/2022,12/26/2008,08/15/1994 Tdap 04/26/2012 Zoster, Recombinant 01/21/2023,11/12/2022 Zoster, live 06/08/2016 Social History Tobacco Use Types Packs/Day Years [...] not to disclose 2021 10:16 AM EDT Last Filed Vital Signs Vital Sign Reading [...] Mass Index 24.57 08/06/2025 10:09 AM EST Plan of Treatment Upcoming Encounters Date Type Department Care Team (Late st Contact Info) Description 09/05/2025 2:30 PM EST Office Visit [facility] [address] [place] [address] Valencia Jackman MD [address] [place] [address] Health Maintenance Due Date Last Done Comments Dental Oral Exam 1945 Dental Prophylaxis 1945 Dental X-Ray: Bitewings 1944 Dental X-Ray: Full Mouth 1945 COVID-19 Vaccine ( season) 2026 08/06/2025, 08/13/2024, 07/05/2023, Additional history exists Alcohol/Substance Use Screening 06/13/2026 06/13/2025 Depression Screening 06/13/2026 06/13/2025, 06/13/20 SDOH Screening 06/13/2026 06/13/2025 Tobacco Screening 08/06/2026 08/06/2025 Lipid Panel 10/30/2029 10/30/2024, 1208/2022, 09/02/2022, Additional history exists DTaP/Tdap/Td Vaccines (3 - Td or Tdap) 08/31/2032 08/31/2022, 04/26/2012, 12/26/2008, Additional history exists Hepatitis A Vaccines Completed 06/29/2001, 09/16/19 Hepatitis B Vaccines Completed 06/29/2001, 11/03/2000, 09/16/2000 Pneumococcal Vaccine: 50+ Years Completed 11/12/2022, 05/25/2016, 01/06/2011, Additional history exists Zoster Vaccines Completed 01/21/2023, 10/15, 06/08/2016 RSV Patients and Patients Aged 60 years or older Completed 08/25/2023 Influenza Vaccine Completed 06/13/2025, , 04/29/2023, Additional history exists HIB Vaccines Aged Out No longer eligi ble based on patient's age to complete this topic HPV Vaccines Aged Out No longer eligi ble based on patient's age to complete this topic IPV Vaccines Aged Out No longer eligi ble based on patient's age to complete this topic Meningococcal B Vaccine Aged Out No l onger eligible based on patient's age to complete this topic Meningococcal Vaccine Aged Out No nestor sylvie eligible based on patient's age to complete this topic RSV under 20 months Aged Out No longe r eligible based on patient's age to complete this topic Rotavirus Vaccines Aged Out No longer eligible based on patient's age to complete this topic Goals Goal Patient Goal Type Associated Problems Recent Progress Patient-Stated? Author Blood Pressure < 150/90 Blood Pressure 122/74(2024 10:09 AM EST) No Js Willett, Wil Note: Per JNC-8 Age greater than 60 y/o, no history of DM or CKD. Keep your medical appointments Lifestyle On track( 025 10:48 AM EDT) No Mueksh Steen RN Procedures Procedure Name Priority Date/Time Associated Diagnosis Comments POCT SHARRI-14 URINE DRUG SCREEN Routine 06/13/2025 2:24 PM EDT Uncomplicated opioid dependence (CMS/HCC) (HCC) POCT SHARRI-14 URINE DRUG SCREEN Routine 05/16/2025 1:08 PM EDT Uncomplicated opioid dependence (CMS/HCC) (HCC) LIPID PANEL WITH REFLEX TO DIRECT LDL Routine 10/30/2024 3:09 PM EDT Dyslipidemia from Last 3 Months or Most Recently Relevant to Health Maintenance Results * (ABNORMAL) POCT SHARRI-14 Urine Drug Screen (06/13/2025 2:24 PM EDT) Only the most recent of2 resultswithin the time period is included. THC Positive(A) Negative Cocaine Screen, Urine Negative Negative Opiate Screen, Urine Negative Negative Methamphetamine Screen Urine Negative Negative Amphetamine Screen, Urine Negative Negative Benzodiazepines Screen, Urine Negative Negative Barbiturate Screen, Urine Negative Negative Methadone Screen, Urine Negative Negative Buprenophine Screen, Urine Positive(A) Negative TCA, Urine Negative Negative MDMA Urine Negative Negative ng/mL Oxycodone Screen, Urine Negative Negative Phencyclidine (PCP), Urine Negative Negative Fentanyl, Urine Negative Negative Urine Urine specimen obtained by clean catch procedure / Unknown 06/13/2025 2:24 PM EDT Valencia Jackman MD POINT OF CARE TEST ENTER/KRYSTLE T ORDERABLES Final Result * (ABNORMAL) Lipid Panel with Reflex to Direct LDL (10/30/2024 3:09 PM EDT) Triglycerides 86 <150 mg/dL [facility] Comment:Desirable Triglyceri de: less than 150 mg/dLBorderline High Triglyceride 150-199 mg/dLHigh Triglyceride: 200-499 mg/dLVery High Triglyceride: greater than or equal to 5OO mg/dL Cholesterol 140 <200 mg/dL [facility] Comment:Desirable Cholestero l: less than 200 mg/dLBorderline High Cholesterol: 200-239 mg/dLHigh Cholesterol: greater than 239 mg/dL LDL Cholesterol Calculated 83 <100 mg/dL [facility] Comment:Desirable LDL: less than 100 mg/dLNear Optimal/Above Optimal LDL: 110- 129 mg/dLBorderline High LDL: 130-159 mg/dLHigh LDL: 160-189 mg/dLVery High LDL: greater than or equal to 190 mg/dL HDL Cholesterol 40(L) >40 mg/dL [facility] Comment:Desirable HDL: great er than 40 mg/dL Note: This HDL assay may give artificially low results in patients with liver disease. Blood 10/30/2024 3:09 PM EDT 10/30/2024 4:49 PM EDT us Tresa Tran MD LAB BLOOD ORDERABLES Final Resul t [facility] [address] [place] [address] [phone] from Last 3 Months or Most Recently Relevant to Health Maintenance Insurance [facility] AETNA MEDIC[facility] REPLACEMENT DENTAL - AETNA DENTAL PPO DENTAL-[employer] MEDICAID STAND ADULT Care Teams Nanotechnician Relationship Specialty Start Date End Date Treas Tran MD [address] [place] [address] PCP - General Family Medicine 08/15/18 Js Willett, DevenD [address], [place] [id number] Pharmacist Internal Medicine 11/01/22
== END 2025-08-06 11:08 | disposition home or self-care (01) ==
LOC: HO.HHCX 11:07
PROVIDERS: PCP Family Medicine; Visit Provider Family Medicine
DX: M25.572 Pain in left ankle and joints of left foot (principal); M79.672 Pain in left foot
CPT/HCPCS: 73610; 73630

== ENCOUNTER → 2025-08-06 11:26 | Outpatient (BNV) | payer MEDICARE, MEDICAID, SELFPAY | PROVIDERS: PCP Family Medicine; Visit Provider Radiology Diagnostic Radiology | DX: M25.572 Pain in left ankle and joints of left foot (principal) | CPT/HCPCS: 73610; 73630 ==